=== PATIENT | male | born 1940 | race Caucasian/White ===

== ENCOUNTER 2016-10-25 18:32 | Inpatient (IN) ==
[2016-10-25] MEDS ORDERED: BENADRYL IV ONE ×2 (18:57→20:55)
[2016-10-25] MEDS ORDERED: DECADRON IV ONE (18:57)
[2016-10-25] MEDS ORDERED: SODIUM CHLORIDE 0.9% INJ ONE (20:55)
[2016-10-25] MEDS ORDERED: PEPCID IV ONE (20:55)
--- NOTE | 2016-10-25 20:57 | PROVIDER DOCUMENTATION ---
This chart was entered by Shalonda Gil Scribe, acting as scribe for Vamsi Coley PA. HPI-EENT General - General Chief Complaint: Tongue Swelling Stated Complaint: SWELLING TONGUE Time Seen by Provider: 10/25/16 18:57 Source: patient Allergies/Adverse Reactions: Patient Allergies Allergy/AdvReac Type Severity Reaction Status Date / Time No Known Allergies Allergy Verified 10/25/16 19:35 Home Medications: Home Medication List Medication Instructions Recorded Confirmed Last Taken Type Cilostazol [Pletal] 100 mg PO BID 03/23/16 10/25/16 Unknown History Donepezil [Aricept] 10 mg PO DAILY 03/23/16 10/25/16 Unknown History Famotidine [Pepcid] 40 mg PO BID #20 tablet 03/23/16 10/25/16 Unknown Rx LOVAstatin [Mevacor] 20 mg PO QHS 03/23/16 10/25/16 Unknown History Meloxicam [Mobic] 7.5 mg PO DAILY 03/23/16 10/25/16 Unknown History Metoprolol Tartrate 100 mg PO DAILY 03/23/16 10/25/16 Unknown History Clonidine [Catapres] 0.2 mg PO Q6HR PRN #30 tablet 05/10/16 10/25/16 Unknown Rx Guanfacine [Tenex] 2 mg PO BID #60 tablet 05/10/16 10/25/16 Unknown Rx Nifedipine E.r. [Procardia ER] 60 mg PO DAILY #30 tablet 05/10/16 10/25/16 Unknown Rx Aspirin 81 mg PO DAILY 10/25/16 10/25/16 Unknown History Fexofenadine [Priscila] 180 mg PO DAILY 10/25/16 10/25/16 Unknown History Furosemide [Lasix] 40 mg PO DAILY 10/25/16 10/25/16 Unknown History Lovastatin 20 mg PO DAILY 10/25/16 10/25/16 Unknown History Memantine Xr [Namenda Xr] 7 mg PO DAILY 10/25/16 10/25/16 Unknown History Tamsulosin HCl 0.4 mg PO DAILY 10/25/16 10/25/16 Unknown History - History of Present Illness-EENT General Nature of Presenting Problem: 76 year old M presents to the ED with a cc of acute tongue swelling with an onset of this afternoon. Family gave pt his epi pen. Unknown of what pt had a reaction to. PT states that tongue swelling is better after having epi pen. Family states that this happened about 3 weeks ago with HTN medications and was given new medication for HTN and a epi pen. EENT Location: reports: mouth Quality of Pain: reports: none Severity: reports: mild Onset/Duration: reports: this afternoon Timing: reports: still present Prearrival Treatment: Initiated prescription meds Associated Symptoms: reports: other (tongue swelling) Locality of Occurance: Home Similar Symptoms Previously?: Yes Recently seen or treated by another doctor?: Yes Review of Systems - Adult - REVIEW OF SYSTEMS - ADULT Constitutional: denies: chills, fever Eyes: reports: no symptoms reported Ears, Nose, Mouth & Throat: reports: mouth swelling. denies: ear pain, throat swelling Cardiovascular: denies: chest pain, palpitations Respiratory: reports: no symptoms reported Gastrointestinal: denies: nausea, vomiting Genitourinary: reports: no symptoms reported Musculoskeletal: denies: muscle aches, muscle weakness Integumentary: denies: skin sores/ulcer, skin thickening Neurological: denies: dizziness/vertigo, headache/migraines Psychiatric: reports: no symptoms reported Endocrine: reports: no symptoms reported Hematologic/Lymphatic: reports: no symptoms reported Allergic/Immunologic: reports: no symptoms reported All Other Systems: Reviewed and Negative Past History - Adult - PAST MEDICAL HISTORY-ADULT Review of Records: reports: Nursing Assessment Review, Medications Reviewed Major Childhood Illnesses: reports: denies history Cardiovascular: reports: cardiac disease, HTN Gastrointestinal: reports: cancer (colon) Neurological: reports: dementia - PRIOR SURGERIES/PROCEDURES Surgical/Procedure History: reports: bowel surgery - IMMUNIZATION STATUS Childhood Immunizations: See Nurse Assessment Flu Vaccine: See Nurse Assessment - SOCIAL HISTORY Smoking: cigarettes Provider spent 3-5 mins advising pt. on dangers of tobacco.: Discussed manners to quit use, and f/u contacts for add'l counseling. Substance Use: none/never Alcohol Use Frequency: never Living Situation: alone Physical Exam- EENT - Physical Exam EENT Initial Vital Signs Reviewed: Yes General Appearance: alert Throat Exam: tongue swollen Respiratory: chest non-tender, lungs clear, normal breath sounds Cardiovascular: normal peripheral pulses, regular rate, rhythm, no edema Abdominal Exam: non tender, soft Integumentary: normal color, normal turgor, warm/dry Psych/Mental Status: normal mood/affect, normal thought content, normal thought process, oriented x 3 Progress - PLAN OF CARE/RESULTS Progress/Plan/Lab Results: Vital Signs - 8 hr 10/25/16 18:50 Temperature 98.8 F Pulse Rate 96 H Respiratory Rate 18 Blood Pressure 170/115 O2 Sat by Pulse Oximetry 96 Orders Category Date Time Status Saline Loc NOW Care 10/25/16 18:57 Active Dexamethasone [Decadron] Med 10/25/16 18:57 Discontinued 10 mg IV NOW ONE Diphenhydramine [Benadryl] Med 10/25/16 18:57 Discontinued 25 mg IV NOW ONE Diphenhydramine [Benadryl] Med 10/25/16 20:55 Once 25 mg IV NOW ONE Famotidine [Pepcid] Med 10/25/16 20:55 Once 20 mg IV NOW ONE Sodium Chloride 0.9% Med 10/25/16 20:55 Once 5 - 10 ml INJ NOW ONE - REASSESSMENT Reassessment #1 Time Reassessed: 20:18 (tongue is still swollen after Benadryl and Decadron along with the floor of the mouth. Family states that pt still sounds the same. ) - CONSULTS/PCP/HOSPITALIST Notification #1 *Consult/PCP/Hospitalist*: Dr. Albarado(hospitalist) Time Discussed: 20:52 (give additional 25mg IV Benadryl and 20mg IV Pepcid. Will see pt in the ER and write all orders. ) Reason/Comments: consult for admission Consult Disposition: Admit Departure - Departure Date of Disposition Decision: 10/25/16 Time of Disposition Decision: 20:56 DIAGNOSIS: Tongue swelling Angioedema Qualifiers: Encounter type: initial encounter Qualified Code(s): T78.3XXA - Angioneurotic edema, initial encounter Disposition: ADMITTED INPATIENT Certified Medical Emergency: Emergent Condition: Stable Referrals and Follow-Ups: Mari Bernal MD [Primary Care Provider] - Discharge Education: Smoking, You Can Quit, [id number] - Critical Care Note This patient required my direct & personal management of CC.: No Attestation - Physician/ PARESH Attestation Patient care was provided by Advanced Practice Provider:: Yes Advanced Practice Provider:: Vamsi Coley Advanced Practice Provider documentation review:: The Mid-level provider documentation, treatment plan and medical decision making was reviewed by the physician who agrees with all treatment and medical decision making by the MLP. The physician spent face to face time with patient:: No Advanced Practice Provider documentation review:: Supervising physician onsite and consulted in the evaluation and care of this patient. The physician did not have a face to face encounter with the patient. This chart was documented by the indicated scribe, (Shalonda Gil Scribe) and accurately reflects the services I performed and decisions made by me, Vamsi Coley PA, as attested by the provider's signature.
--- NOTE | 2016-10-25 21:29 | Diag Imaging Result Doc PS360 ---
EXAM: CHEST-1 VIEW HISTORY: admission, angio edema TECHNIQUE: Erect AP portable chest dated 10/25/2016 at 2125 COMMENT: The inspiration is better than on 03/23/2016. Otherwise has been no significant change. IMPRESSION: No acute disease. Electronically signed by Mo Marin 10/25/2016 9:27 PM
[2016-10-25 21:35] LABS: MANUAL DIFF NEEDED? NO
[2016-10-25 21:40] LABS: BASO% 0.3 % (0.0-0.8); EOS# 0.09 X1000 (0.0-0.7); EOS% 1.4 % (0.0-10.0); HEMATOCRIT 43.6 % (42.0-52.0); HEMOGLOBIN 14.7 g/dL (14.0-18.0); LYMPH% 23.1 % (20.5-51.1); MCH 31.5 PG (27-31); MCHC 33.7 g/dL (33-37); MCV 93.6 FL (81-99); MONO# 0.67 X1000 (0.11-0.59); MONO% 10.3 % (1.7-9.3); MPV 10.1 FL (7.4-10.4); NEUT% 64.9 % (42.2-75.2); PLT 170 X1000 (130-400); RBC 4.66 XMIL (4.7-6.1)
[2016-10-25 22:01] LABS: ALBUMIN 4.1 g/dL (3.5-5.0); CALCIUM 8.9 mg/dL (8.8-10.2); POTASSIUM 4.6 mmol/L (3.5-5.1); TOTAL BILIRUBIN 0.57 mg/dL (0.20-1.00); TOTAL PROTEIN 8.3 g/dL (6.3-8.3)
[2016-10-25] MEDS ORDERED: GLUCAGON IM ONE (22:15)
[2016-10-25] MEDS ORDERED: STERILE WATER INJ. ONE (22:53)
--- NOTE | 2016-10-25 23:18 | HISTORY AND PHYSICAL ---
REASON FOR ADMISSION: 1-day history of sudden tongue swelling. HISTORY OF PRESENT ILLNESS: Mr. Cosme Mueller is a pleasant 76-year-old man with a history of BPH, CAD, hypertension, hyperlipidemia, mild cognitive impairment, peripheral vascular disease, who comes today complaining of a 3rd episode of swelling of the mouth and tongue. When he was last seen by Dr. Bernal, on 2 prior occasions, his lisinopril was replaced with losartan and the 2nd occasion losartan was discontinued and he says he was started on Procardia. He was also given an EpiPen pack to use if he had any recurrence of this while at home. Today, patient called his daughter who in turn called his grandson to go to the house because he was having slurred speech secondary to his tongue swelling. By the time his grandson got better, patient had administered 1 shot of epinephrine. He reports that he got some mild success using this with the dorsal surface of his tongue swelling receding. By the time he got here, there was some continuous improvement and he was given 10 mg of Decadron and 25 mg of Benadryl. During observation in the ER, they noticed the base of his tongue site swelling, and this has affected his speech and swallowing of his saliva. Fortunately the patient does not admit to any difficulty breathing at this point in time. No abdominal symptoms. No cardiorespiratory symptoms. No focal neurological complaints. No visual problems. History from this patient was somewhat limited due to his slurred speech from macroglossia. REVIEW OF SYSTEMS: 12 system review was negative. Positive findings noted as above. The patient denies any drooling, any fever, any chills, arthralgias or rash. The newest medication he has been on is the aforementioned Procardia. He denies any change. At the time this happened, no unusual meals were ingested. He does not take any herbal remedies. Over-the- counter medication. ALLERGIES: JIMENA inhibitors and questionable allergies to ARB's. HOME MEDICATION LIST: 1. Mobic 7.5 mg daily. 2. Namenda XR 7 mg daily. 3. Metoprolol tartrate 100 mg daily. 4. Nifedipine ER 60 mg daily. 5. Flomax 0.4 mg daily. 6. Lovastatin 20 mg at bedtime. 7. Tenex 2 mg b.i.d. 8. Lasix 20 mg daily. 9. Pepcid 40 mg b.i.d. 10. Aricept 10 mg daily. 11. Catapres 0.2 mg q.6 p.r.n. 12. Pletal 100 mg b.i.d. 13. Aspirin 81 mg daily. FAMILY HISTORY: Patient has family history of diabetes, Alzheimer's disease, hypertension, end- stage kidney disease, colon cancer and peripheral vascular disease and heart disease. This occurs in first-degree relatives. SOCIAL HISTORY: He does not smoke or drink. Lives with his son. No illicit drug use. SURGICAL HISTORY: He has had Lasik surgery. Partial colectomy for presumed colon cancer. Coronary artery stent placement. Skin cancer excisions. LABORATORY: His work is pending as of this time. EKG is also pending at this time. PHYSICAL EXAMINATION: VITAL SIGNS: Blood pressure 170/115, heart rate 96, respirations 18, temperature is 98.8 degrees, 96% on room air. GENERAL: He is an elderly man, not in acute respiratory distress. He is alert and oriented to person, place and time with normal mood and affect. HEENT: Head is normocephalic, atraumatic. Eyes, CURLY, EOMI. No periorbital edema. He is anicteric and not pale. ENT and oropharyngeal exam is very limited, but he has no central cyanosis visualized. He has some degree of moderate macroglossia, with severe edema of the floor of the mouth. #no perioral edema noted. NECK: Short and thick. No JVD or carotid bruit. No thyromegaly. No swelling. CHEST: Clear to auscultation with good air entry both lung gutierrez. CARDIOVASCULAR: First and second heart sounds heard. No gallops, murmurs, rubs , rhythm is regular. ABDOMEN: Protuberant, soft, nontender. No masses or megaly, bowel sounds normal. RECTAL: Deferred at this time. EXTREMITIES: He has 1+ pitting edema in his lower extremities. Pulses distally in all extremities are barely 1+ in the upper extremities and barely palpable distally in the lower extremities. No peripheral cyanosis. No clubbing. Extremities are warm to touch. No tremors. NEUROLOGICAL: No focal deficits. SKIN: Intact. No breakdown lesion or erythema. MUSCULOSKELETAL: Exam is grossly normal. ASSESSMENT: 1. Angioedema of the tongue and oral mucosa and oral cavity, yet to be identified. Medication ? Calcium channel blockers. Plan at this time, we will withhold all medications at this point in time. We will, however, continue the absolutely necessary medications either per rectum or intravenously. For now, for blood pressure control we will give p.r.n. hydralazine and scheduled modest doses of metoprolol because of patient's underlying coronary artery disease. Aspirin will be given per rectum. This may also afford us an frozen opportunity to see what medication may be inciting this round of angioedema by replacing each medication and observing the patient over a series of hours once the acute phase has resolved. First I recommend patient staying in-house for probably the next few days to observe this. There is somewhat of a conundrum in the sense that the patient has received epinephrine which showed of antagonizes his anti-ischemic medications and if he were to require this in a very severe situations, we will have no choice but to use it. This, however, will increase the patient's risk of having an ischemic event. I will order serial troponins to monitor this. The patient will be started on H2 and H1 blockers with steroids. If there is no significant improvement, we will reluctantly consider given the patient fresh frozen plasma even though there is a small risk of paradoxical worsening of angioedema with this. 2. Coronary artery disease. We will continue with intravenous metoprolol at a lower dose of 2.5 and if need be, we will increase the dose to 5 mg q.6 hours. Unfortunately, using beta blockers may blunt any benefit of epinephrine if the patient has anaphylaxis , in which case, we will have no choice but to use glucagon to override that. 3. Hyperlipidemia. Hold lovastatin. 4. Mild cognitive impairment. Withhold Aricept and Namenda indefinitely for prolonged until patient is out of the acute phase and these are the least important of all his medications and will need to be restarted last to see if they are the primary problem here. 5. Benign prostatic hypertrophy. The patient has a high risk of acute urinary retention since we started him on anticholinergics like Benadryl. This needs to be observed. 6. Hypertension. For now we will start patient on p.r.n. hydralazine, beta blockers and if needed, maybe intravenous Cardizem or verapamil for blood pressure control. Critical care time 45mins cc: Selam Albarado MD MTDD
[2016-10-26] MEDS ORDERED: SODIUM CHLORIDE 0.9% INJ ONE (01:55)
[2016-10-26] MEDS ORDERED: APRESOLINE IV PRN (01:55)
[2016-10-26] MEDS: PEPCID IV SCH ×2 (02:22→12:54)
[2016-10-26] MEDS: SOLU-MEDROL IV SCH ×4 (02:23→18:07)
[2016-10-26] MEDS: BENADRYL IV SCH ×4 (02:24→18:07)
[2016-10-26] MEDS: LOPRESSOR IV SCH ×2 (02:24→09:30)
[2016-10-26] MEDS: NS 1,000 ML IV SCH ×3 (02:26→16:54)
[2016-10-26] MEDS: HUMALOG SUBQ SCH ×5 (02:32→21:29)
[2016-10-26] MEDS: LOVENOX SUBQ SCH (02:47)
[2016-10-26 05:05] LABS: MANUAL DIFF NEEDED? NO
[2016-10-26 05:10] LABS: BASO% 0.1 % (0.0-0.8); HEMOGLOBIN 15.2 g/dL (14.0-18.0); IMM GRAN# 0.02 X1000 (0.0-0.04); IMM GRAN% 0.3 % (0.0-0.5); LYMPH# 0.93 X1000 (1.2-3.4); LYMPH% 13.6 % (20.5-51.1); MCH 31.6 PG (27-31); MCHC 34.5 g/dL (33-37); MCV 91.5 FL (81-99); MONO# 0.07 X1000 (0.11-0.59); MPV 9.8 FL (7.4-10.4); PLT 158 X1000 (130-400); RBC 4.81 XMIL (4.7-6.1)
--- NOTE | 2016-10-26 05:18 | EKG Report ---
Test Performed on : 10/25/2016 10:11:31 PM Test Reason : admission, angioedema Blood Pressure : / mmHG Vent. Rate : 070 BPM Atrial Rate : 070 BPM P-R Int : 220 ms QRS Dur : 102 ms QT Int : 434 ms P-R-T Axes : 043 -24 127 degrees QTc Int : 468 ms Sinus rhythm. with 1st degree AV block. with occasional premature ventricular complexes. T wave abnormality, consider lateral ischemia Prolonged QT Abnormal ECG When compared with ECG of 23-MAR-2016 10:41, premature ventricular complexes. are now present Questionable change in QRS axis T wave inversion no longer evident in Inferior leads Unconfirmed Result
[2016-10-26 06:09] LABS: CALCIUM 8.3 mg/dL (8.8-10.2); POTASSIUM 3.4 mmol/L (3.5-5.1)
[2016-10-26] MEDS ORDERED: CATAPRES-TTS-3 TD SCH (08:45)
[2016-10-26] MEDS ORDERED: ASPIRIN PR SCH (09:00)
--- NOTE | 2016-10-26 09:08 | PROGRESS NOTE ---
DATE: 10/26/2016 SUBJECTIVE: Mr. Mueller has a history of angioedema. He has previously taken lisinopril and losartan and both of those medications were discontinued. He has had previous C1 esterase levels and complement-1 inhibitor antigen levels drawn which were within normal limits. He was admitted to [facility] with increasing swelling of his tongue and perioral tissues. He was started on IV Pepcid, Benadryl, and IV Solu-Medrol. The swelling in the tongue has improved significantly. He is still having swelling of some of the buccal tissues. He denies any chest pain, palpitations, shortness of breath, or difficulty swallowing. He does have a longstanding history of hypertension. His blood pressure is fluctuating. Systolic blood pressures have been in the 160s and 170s whereas his diastolic blood pressures have ranged from 90-110. He denies any chest pain, palpitations, or anginal equivalents. OBJECTIVE: Temperature 97.7 degrees, pulse 92, BP 172/114. HEENT: There is no swelling of the tongue. There is still swelling of the buccal mucosa in the base of the oropharynx. Neck supple. CV: Regular rate and rhythm. Lungs clear. Abdomen soft, nontender, with active bowel sounds. ASSESSMENT AND PLAN: 1. Angioedema. Previous testing has demonstrated no evidence of C1 esterase deficiency. We will recheck a C1 esterase enzyme level. In the meantime, we will continue IV Solu-Medrol, IV Pepcid, and Benadryl. Once he goes home, he will be on medicines such as Singulair or fexofenadine. 2. Hypertension. His blood pressure is too high. We will continue intravenous metoprolol and add a Catapres patch. cc: Eugenio Bernal MD
[2016-10-26] MEDS ORDERED: TOPROL XL PO SCH (12:30)
[2016-10-26] MEDS: LASIX PO SCH (12:39)
[2016-10-26] MEDS: TENEX PO SCH ×2 (12:52→21:30)
[2016-10-26] MEDS ORDERED: NITROGLYCERIN 50 MG/D5W 50 MG/250 ML IV.SOLN IV SCH (14:57)
--- NOTE | 2016-10-26 16:21 | PROGRESS NOTE ---
DATE: 10/26/2016 SUBJECTIVE: Mr. Mueller was admitted to [facility] with angioedema. He has been taking IV Benadryl and methylprednisone. The swelling of the tongue has largely resolved. He is able to swallow clear liquids without difficulty. His blood pressure has been fluctuating, but is trending down. OBJECTIVE: Vital Signs: Blood pressure 178/106, pulse 62, respirations 18, temperature 97.7 degrees. CV: Regular rate and rhythm. Lungs: Clear. Abdomen: Soft, nontender, with active bowel sounds. ASSESSMENT AND PLAN: 1. Idiopathic angioedema. We will taper down on the intravenous Solu-Medrol to 40 mg intravenous every 8 hours and continue intravenous Benadryl. I will most likely add Singulair 10 mg daily on discharge as antihistamines can cause urinary retention in the face of known benign prostatic hypertrophy. 2. Hypertension. We will resume metoprolol 50 mg twice daily, Adalat extended release 60 mg daily, and Tenex 2 mg twice daily. We will monitor his blood pressure closely. cc: Eugenio Bernal MD
[2016-10-26] MEDS: PROCARDIA ER PO SCH (16:54)
[2016-10-26] MEDS ORDERED: GEODON IM ONE (18:32)
[2016-10-26] MEDS ORDERED: STERILE WATER INJ. INJ ONE (18:32)
[2016-10-26] MEDS ORDERED: ATIVAN PO ONE (19:30)
[2016-10-26] MEDS: TOPROL XL PO SCH (21:30)
[2016-10-26 22:09] LABS: URINE CULTURE NEEDED? NO; URINE MICRO REVIEW NEEDED? NO; URINE SOURCE CATH
[2016-10-26 22:12] LABS: BILIRUBIN URINE NEGATIVE (NEGATIVE); BLOOD URINE SMALL (NEGATIVE); COLOR YELLOW; GLUCOSE URINE NEGATIVE (NEGATIVE); LEUKOCYTES URINE NEGATIVE (NEGATIVE); NITRITE URINE NEGATIVE (NEGATIVE); PROTEIN URINE NEGATIVE (NEGATIVE); SP GRAVITY URINE 1.007; TURBIDITY URINE CLEAR (CLEAR); UROBILINOGEN URINE NORMAL (NORMAL)
[2016-10-26 22:14] LABS: UR EPITHELIAL CELLS <10 /HPF (<10); URINE BACTERIA NEGATIVE /HPF; URINE WBC <10 /HPF (<10)
[2016-10-26] MEDS ORDERED: HALDOL IM PRN (22:53)
[2016-10-27] MEDS: BENADRYL IV SCH ×2 (00:22→06:08)
[2016-10-27] MEDS: PEPCID IV SCH ×2 (01:00→13:14)
[2016-10-27] MEDS: LOVENOX SUBQ SCH (01:01)
[2016-10-27] MEDS: NS 1,000 ML IV SCH ×4 (01:01→21:59)
[2016-10-27] MEDS: SOLU-MEDROL IV SCH ×2 (02:05→13:15)
[2016-10-27] MEDS: HUMALOG SUBQ SCH ×4 (04:10→20:56)
[2016-10-27] MEDS ORDERED: ATIVAN IV ONE (06:51)
[2016-10-27] MEDS ORDERED: PREDNISONE PO SCH (09:00)
[2016-10-27] MEDS: LASIX PO SCH (09:51)
[2016-10-27] MEDS: ARICEPT PO SCH (09:51)
[2016-10-27] MEDS: FLOMAX PO SCH (09:51)
[2016-10-27] MEDS: NAMENDA XR PO SCH (09:51)
[2016-10-27] MEDS: TENEX PO SCH ×2 (09:52→20:22)
[2016-10-27] MEDS: PROCARDIA ER PO SCH (09:52)
[2016-10-27] MEDS: PLETAL PO SCH ×2 (09:52→20:22)
[2016-10-27] MEDS: TOPROL XL PO SCH ×2 (09:52→20:22)
[2016-10-27] MEDS ORDERED: LOPRESSOR IV SCH (12:30)
[2016-10-27 13:05] LABS: CALCIUM 8.5 mg/dL (8.8-10.2); POTASSIUM 3.5 mmol/L (3.5-5.1)
[2016-10-27 13:07] LABS: HEMATOCRIT 44.9 % (42.0-52.0); HEMOGLOBIN 15.1 g/dL (14.0-18.0); MCH 31.6 PG (27-31); MCHC 33.6 g/dL (33-37); MCV 93.9 FL (81-99); MPV 9.7 FL (7.4-10.4); RBC 4.78 XMIL (4.7-6.1)
[2016-10-27 13:16] LABS: URINE MICRO REVIEW NEEDED? NO; URINE SOURCE CATH
[2016-10-27] MEDS ORDERED: LEVAQUIN 250 MG/D5W 250 MG/50 ML IVPB IV SCH (13:45)
[2016-10-27 13:57] LABS: UR EPITHELIAL CELLS <10 /HPF (<10); URINE BACTERIA NEGATIVE /HPF; URINE RBC TNTC /HPF (<10)
--- NOTE | 2016-10-27 14:00 | Diag Imaging Result Doc PS360 ---
EXAM: CHEST-PORTABLE HISTORY: HTN TECHNIQUE: Upright AP COMPARISON: 10/25/2016 FINDINGS: The lungs are well expanded. Heart is borderline mildly prominent. Mild prominence to the aortic arch similar to the prior study. The vessels are not distended. No pneumonia. No pleural effusions identified. IMPRESSION: Stable chest Electronically signed by Raimundo Beard 10/27/2016 1:58 PM
[2016-10-27 14:01] LABS: BILIRUBIN URINE NEGATIVE (NEGATIVE); BLOOD URINE LARGE (NEGATIVE); COLOR BROWN; GLUCOSE URINE NEGATIVE (NEGATIVE); LEUKOCYTES URINE MODERATE (NEGATIVE); NITRITE URINE NEGATIVE (NEGATIVE); PH URINE 6.5; PROTEIN URINE 30 mg/dL (NEGATIVE); SP GRAVITY URINE 1.015; TURBIDITY URINE HAZY (CLEAR); URINE CULTURE NEEDED? YES; UROBILINOGEN URINE NORMAL (NORMAL)
--- NOTE | 2016-10-27 14:55 | PROGRESS NOTE ---
DATE: 10/27/2016 SUBJECTIVE: Mr. Cosme Mueller was admitted to [facility] with acute angioedema. He has been on IV Benadryl, IV methylprednisolone, and the swelling in his tongue had improved significantly. We reduced the dosage of methylprednisolone yesterday afternoon. He does have a history of mild cognitive impairment for which he is taking both Aricept and Namenda. He was highly agitated and restless throughout the night. At times, he was confused and disoriented. He pulled out multiple IVs and attempted to get out of bed multiple times. He was given multiple medications including Geodon and Ativan and was sleeping deeply when I saw him this morning. In fact, he did not arouse to verbal stimuli. He did squirm and move about in bed to painful stimuli. He has not had any fever, chills, nausea, or vomiting. He has not been able to take oral medications as he has been sedated and difficult to arouse. He does have a longstanding history of hypertension. His blood pressure continues to fluctuate. Systolic blood pressures are ranging from 145-171, whereas his diastolic blood pressures are ranging from 90-103. OBJECTIVE: Vital Signs: Temperature 98.4 degrees, pulse 62, respirations 16, BP 145/90. General: This is a chronically ill-appearing, 76-year-old gentleman who squirms about in bed and opens his eyes to verbal and painful stimuli. He moves all extremities grossly. CV: Regular rate and rhythm. Lungs clear. Abdomen soft, nontender, with active bowel sounds. Extremities without edema. LABORATORY DATA: A CBC demonstrated a white count of 12.69, hemoglobin 15.1, hematocrit 44.9, and a platelet count of a 177,000. Electrolytes demonstrate the following: Sodium 139, potassium 3.5. BUN 29, creatinine 1.7, and glucose 128. ASSESSMENT AND PLAN: 1. Angioedema. The tongue swelling has resolved. The peribuccal mucosa is much less erythematous. He was tolerating clear liquids without difficulty prior to the events of last night. We will seen him down to methylprednisolone 20 mg IV daily. I will stop the IV Benadryl. He had been taking fexofenadine as an outpatient for the angioedema but stopped it a week ago. This is his first episode in several months. Previous Complement C1 Estrace Deficiencies were not present. We will most likely try Singulair 10 mg on discharge, as Singulair will not cause urinary retention in the setting of BPH. 2. Mild cognitive impairment with delirium. He has a mild leukocytosis. His urinalysis is clear. His creatinine has dropped from 2.1 to 1.7. I suspect that the delirium is multifactorial in etiology. He has renal insufficiency and uremia. We will continue fluid resuscitation and recheck a BMP in the morning. I will check a portable chest x-ray today as well as a CT scan of the brain. I will go ahead and begin Levaquin 250 mg IV daily pending urine cultures and blood cultures x2. 3. Essential hypertension. We will continue Catapres TTS 3 patch; 1 patch to the chest weekly and add Lopressor 5 mg IV q.12 hours. cc: Eugenio Bernal MD
[2016-10-27] MEDS: GEODON IM PRN (16:07)
[2016-10-27] MEDS: STERILE WATER INJ. INJ PRN (16:08)
--- NOTE | 2016-10-27 17:02 | PROGRESS NOTE ---
DATE: 10/27/2016 SUBJECTIVE: Mr. Mueller seems much more calm this afternoon. He was awake and easily arousable. He answered questions appropriately. He was oriented to name and place. Blood pressure is still fluctuating. He denies any chest pain, palpitations, or anginal equivalents. His chest x-ray was unremarkable. OBJECTIVE: Vital signs: Blood pressure 179/115, pulse 87, respirations 22, temperature 98.8 degrees. Cardiovascular: Regular rate and rhythm. Lungs: Clear. Abdomen: Soft, nontender, with active bowel sounds. ASSESSMENT: Hypertension. His blood pressure is too high. I will continue a Catapres TTS-3 patch, 1 patch to the chest q.7 days and increase the dosage of Lopressor to 5 mg IV q.6 hours. cc: Eugenio Bernal MD
[2016-10-27] MEDS: ATIVAN IV PRN ×2 (18:43→21:59)
[2016-10-27] MEDS: LOPRESSOR IV SCH (19:27)
[2016-10-28] MEDS: LOVENOX SUBQ SCH (02:11)
[2016-10-28] MEDS: PEPCID IV SCH (02:11)
[2016-10-28] MEDS: NS 1,000 ML IV SCH ×3 (02:12→16:53)
[2016-10-28] MEDS: LOPRESSOR IV SCH ×5 (02:15→21:20)
[2016-10-28] MEDS: HUMALOG SUBQ SCH ×4 (04:40→21:17)
[2016-10-28] MEDS: ATIVAN IV PRN (05:09)
[2016-10-28] MEDS: TENEX PO SCH ×3 (08:54→21:20)
[2016-10-28] MEDS: TOPROL XL PO SCH ×3 (08:55→21:21)
[2016-10-28] MEDS: ROCEPHIN 1 GM in NS 50 ML IV SCH (09:30)
--- NOTE | 2016-10-28 09:50 | PROGRESS NOTE ---
DATE: 10/28/2016 SUBJECTIVE: Mr. Mueller was admitted to [facility] with acute angioedema. Previous complement studies were within normal limits. Repeat complement studies were also within normal limits. We had stopped various medications including lisinopril and losartan when he initially presented with angioedema. He has been taking fexofenadine at home, but stopped it a week ago because of nosebleeds. He was initially treated with IV Benadryl and IV Solu-Medrol. The swelling of the tongue has resolved. He does have a history of mild vascular dementia. Over the past 2 nights he has been incredibly restless and agitated and having visual hallucinations. His urinalysis was positive yesterday. Urine cultures are negative. Blood cultures are still pending. We started him on Levaquin yesterday. His creatinine is trending down with fluid resuscitation. We tried Geodon and Ativan with little improvement clinically. He was very restless and agitated and tried to get out of bed throughout the night. He would not attempt to take oral medications. This morning, he was sitting up in his hospital bed. He seemed calm, but was still restrained with soft restraints. He knew his name, place and year. He could tell me the name of his daughter. He was able to eat several bites of Jell-O with assistance and took his morning blood pressure medicines with assistance this morning. His blood pressure is still quite labile. He denies any chest pain, palpitations or anginal equivalents. OBJECTIVE: Vital Signs: Temperature 98.5 degrees, pulse 74, respirations 20, BP 166/95. CV: Regular rate and rhythm with a soft systolic murmur. Lungs: Clear. Abdomen: Soft, nontender, with active bowel sounds. Neuro: He is arousable, but still somewhat sedated. He is oriented to name, place and year. He followed simple commands. Tongue was deviated to the right. He has normal tone and strength in the upper and lower extremities. ASSESSMENT AND PLAN: 1. Acute delirium. The etiology of his delirium is unclear. He does not consume any alcoholic beverages. He has not stopped taking any anxiolytic agents suddenly. He has no previous history of seizures. We will check a CT scan of the brain. We will continue IV antibiotics pending final cultures. I will repeat electrolytes this morning. We will we will consult neurology. 2. Angioedema. The angioedema has resolved. We will advance him to a gastrointestinal soft diet. I will begin Singulair 10 mg daily as it will not cause urinary retention in the face of benign prostatic hyperplasia. 3. Hypertension. He was able to take his Tenex and metoprolol by mouth this morning. We are going to resume the Adalat and continue the Catapres patch. Unfortunately, there are multiple medicines that he cannot take, including JIMENA inhibitors, ARB's, as well as Tekturna because of the angioedema. We are also holding his eTecic. cc: Eugenio Bernal MD
--- NOTE | 2016-10-28 09:53 | Diag Imaging Result Doc PS360 ---
EXAM: CHEST-PORTABLE HISTORY: HTN TECHNIQUE: Sitting AP portable COMPARISON: 10/27/2016 FINDINGS: The patient is rotated to the right. The lungs are well expanded. Heart is mildly prominent. The vessels are not distended. No pneumonia. No pleural effusions identified. IMPRESSION: Stable chest. Electronically signed by Raimundo Beard 10/28/2016 9:51 AM
[2016-10-28 11:26] LABS: MANUAL DIFF NEEDED? NO
[2016-10-28 11:30] LABS: BASO% 0.1 % (0.0-0.8); IMM GRAN# 0.02 X1000 (0.0-0.04); IMM GRAN% 0.2 % (0.0-0.5); LYMPH# 1.19 X1000 (1.2-3.4); LYMPH% 11.7 % (20.5-51.1); MCH 31.1 PG (27-31); MCHC 33.3 g/dL (33-37); MCV 93.2 FL (81-99); MONO# 1.31 X1000 (0.11-0.59); MONO% 12.9 % (1.7-9.3); MPV 9.5 FL (7.4-10.4); NEUT% 75.1 % (42.2-75.2); PLT 175 X1000 (130-400); RBC 5.15 XMIL (4.7-6.1)
[2016-10-28 11:50] LABS: CALCIUM 8.3 mg/dL (8.8-10.2); POTASSIUM 3.4 mmol/L (3.5-5.1); TOTAL BILIRUBIN 0.74 mg/dL (0.20-1.00); TOTAL PROTEIN 7.3 g/dL (6.3-8.3)
[2016-10-28] MEDS: ARICEPT PO SCH (12:25)
[2016-10-28] MEDS: FLOMAX PO SCH (12:27)
[2016-10-28] MEDS: LASIX PO SCH (12:27)
[2016-10-28] MEDS: PROCARDIA ER PO SCH (12:28)
[2016-10-28] MEDS: NAMENDA XR PO SCH (12:28)
[2016-10-28] MEDS: SOLU-MEDROL IV SCH (12:28)
[2016-10-28] MEDS: PLETAL PO SCH ×3 (12:28→21:21)
--- NOTE | 2016-10-28 12:43 | Diag Imaging Result Doc PS360 ---
EXAM: CT HEAD W/O CONTRAST HISTORY: delerium TECHNIQUE: CT of the head without contrast with dose reduction (clarity.) COMMENT: There is calcification in the left vertebral and both internal carotid arteries. There is generalized cerebral atrophy. There is also an extra-axial fluid collection which appears to be of CSF density on the left side. This averages under a centimeter in thickness. Compared to the previous study of 03/23/2016 this does not appear to have changed significantly. There are some patchy areas of lucency in the white matter of both hemispheres particularly in the right frontal and parietal lobes consistent with chronic microvascular ischemic change. The ventricular system has not changed significantly in appearance or size. The calvarium is intact. The visualized paranasal sinuses are unchanged. IMPRESSION: Stable CT of the head. Electronically signed by Mo Marin 10/28/2016 12:41 PM
[2016-10-28] MEDS: LIBRIUM PO SCH ×3 (14:40→21:18)
[2016-10-28] MEDS: HALDOL IV PRN (14:42)
--- NOTE | 2016-10-28 16:29 | CONSULTATION ---
DATE OF CONSULTATION: 10/28/2016 NEUROLOGY CONSULT NOTE: Mr. Mueller is 76 years old and he has had some agitated confusion in the hospital. He was admitted a few days ago with angioedema of the tongue. Tongue has been much improved. He was restless overnight and required restraints. There was never a period of unresponsiveness or unconsciousness. There was no seizure or seizure-like behavior. He is a little bit more calm this morning. History from attentive daughter at the bedside is that he has had some forgetfulness for approximately a year or a little bit longer, gradually becoming more prominent. He was started on donepezil 8-12 months ago and has tolerated that with possible benefit noted. Namenda XR 7 mg daily was added a few months ago, according to the daughter, and she is not certain that has provided additional benefit. He has had a few episodes of angioedema of the tongue in these last few months. He started Priscila after the first incident. There are no other recent medications. Daughter reports no history of diagnosed stroke, previous seizure, serious head injury, other neurologic event. He has a remote history of ethanol use, possibly abuse but daughter believes that has not happened for many years. He has not used illicit drugs and specifically has not had anxiolytics or benzodiazepines. Workup here includes lab showing some mildly elevated blood sugars, nothing else remarkable on chemistry profile, nothing that generally would be associated with encephalopathy. He has a CT of the head ordered. On exam, he is awake, alert, attentive. He answered questions appropriately but often incorrectly. He was unable to provide the correct day of the week, month, name of the hospital, name of the President. I did not test his cognitive function further. He had some typical visual hallucinatory behavior, turning his head rapidly from one side of the bed to the other and looking up at the ceiling as if he were watching something. (Daughter reports that he has reported seeing things around the room which are not there.) Head and neck are unremarkable. There is no meningismus. Extraocular movements are full laterally. Upgaze is difficult to foundry molder with voluntary active gaze, but appears to be good with head tilting passively. Facial motility is symmetric. Gag is intact. Tongue is unremarkable on my brief exam. Oropharynx is otherwise unremarkable. He can hear. Strength is normal in the arms and legs. Tone is symmetric. He did well on [id number] testing bilaterally. He has some tremulousness, but no classifiable tremor. Plantar response is silent bilaterally. Reflexes are 1+ at the wrists, and absent at the ankles bilaterally. I did not test his gait. IMPRESSION: 1. Recent agitated confusion, features consistent with delirium and he is also tremulous. Features are consistent with a withdrawal syndrome, but there is nothing in his current or recent medication history to suggest a withdrawal problem. However, when I asked him about ethanol ingestion he seemed to consistently report that he had recently had "apple alcohol" that he had "bought in the store." Daughter reports that may be possible. If this is not a withdrawal syndrome, then I would simply label this global encephalopathy with agitated confusion and delirium, uncertain explanation. I would continue treating symptomatically as you are doing and hope that he will gradually recover. The most likely explanation would be acute/subacute exacerbation of confusion and agitation in the face of hospitalization with baseline cognitive impairment syndrome. I do not see evidence of increased intracranial pressure or focal lesion but CT will be reassuring. 2. He has baseline cognitive impairment, probably major cognitive impairment/ dementia. I cannot state that with certainty based on his current syndrome and he may have only a mild cognitive impairment at baseline. 3. The only recent medicine that seems to have been consistently on board with each of his angioedema episodes is Namenda. Therefore, I would consider not resuming Namenda for at least a few months. I think he can resume donepezil whenever he is swallowing consistently. Thanks for asking me to see Mr. Mueller. cc: MD Eugenio Morillo III, MD MTDD
[2016-10-29] MEDS: ATIVAN IV PRN ×2 (01:54→22:53)
[2016-10-29] MEDS: NS 1,000 ML IV SCH ×2 (01:58→14:06)
[2016-10-29] MEDS: LOPRESSOR IV SCH ×4 (01:59→19:43)
[2016-10-29] MEDS: LIBRIUM PO SCH ×4 (02:01→20:23)
[2016-10-29] MEDS: LOVENOX SUBQ SCH (02:01)
[2016-10-29] MEDS: HUMALOG SUBQ SCH ×4 (04:38→23:40)
[2016-10-29] MEDS: ROCEPHIN 1 GM in NS 50 ML IV SCH (09:25)
[2016-10-29] MEDS: FLOMAX PO SCH (09:51)
[2016-10-29] MEDS: LASIX PO SCH (09:51)
[2016-10-29] MEDS: ARICEPT PO SCH (09:51)
[2016-10-29] MEDS: NAMENDA XR PO SCH (09:52)
[2016-10-29] MEDS: PLETAL PO SCH ×2 (09:56→20:24)
[2016-10-29] MEDS: TOPROL XL PO SCH ×2 (09:56→20:24)
[2016-10-29] MEDS: TENEX PO SCH ×2 (09:56→20:24)
[2016-10-29] MEDS: PROCARDIA ER PO SCH (09:56)
[2016-10-29 10:11] LABS: ALBUMIN 3.6 g/dL (3.5-5.0); POTASSIUM 3.3 mmol/L (3.5-5.1); TOTAL BILIRUBIN 0.72 mg/dL (0.20-1.00); TOTAL PROTEIN 6.6 g/dL (6.3-8.3)
[2016-10-29] MEDS ORDERED: MAGNESIUM SULFATE 2 GM/S.W.I. 2 GM/50 ML IVPB IV ONE (10:20)
[2016-10-29] MEDS ORDERED: POTASSIUM CHLORIDE 40 MEQ/SWI 40 MEQ/100 ML IVPB IV ONE (10:20)
[2016-10-29] MEDS: KLOR-CON PO SCH (10:55)
[2016-10-29] MEDS: MAG-OX PO SCH ×2 (10:55→20:24)
[2016-10-29] MEDS: SOLU-MEDROL IV SCH (11:50)
[2016-10-29] MEDS: POTASSIUM CHLORIDE 20 MEQ/SWI 20 MEQ/100 ML IVPB IV SCH ×2 (11:51→14:06)
--- NOTE | 2016-10-29 12:02 | PROGRESS NOTE ---
DATE: 10/29/2016 SUBJECTIVE: Of interest, I note that he goes down to a junctional bradycardia with a widened complex at night. He also had noted some sleep apnea and his O2 sats go down in the 60s. He presently is in sinus rhythm. His baseline EKG that we did on 10/25/2016, he appears to have sinus rhythm. Narrow complex. But, he does have first-degree AV block. His agitation is less. He is in restraints. He is oriented to person only though. He did not remember the year or the month or where he was. However, he seems to be very pleasant. I reminded him he is in [facility] and of his date and time. I see where Dr. Noel is seeing him and suspected just global encephalopathy with probable underlying early cognitive decline or dementia. OBJECTIVE: Exam today, temperature 97.7 degrees, pulse 78, respirations 20, blood pressure 168/106. Pupils are equal, round. CVP less than 6 cm. Lungs are clear in all lung gutierrez. Cardiovascular: Regular rhythm and rate without murmur or S3. Abdomen is soft. Skin is warm and dry. Urine output almost 4 L. LAB REVIEW: Lab reviewed from yesterday, white count 10,140. Hematocrit 48, platelet count 175,000. Chemistry: Sodium 146, potassium 3.3, chloride 107, blood sugar sequential 112, 112, 80 and 87. Calcium was 8.0. Albumin 3.6. ASSESSMENT AND PLAN: 1. Acute delirium. Suspect nonspecific global encephalopathy, hospital psychosis in the face of probably some underlying cognitive decline. He has no previous history of seizures. He was getting some Benadryl and Solu-Medrol. I am not sure about if there was any ethanol or ethanol withdrawal. At any rate, he seems to be improving. 2. Angioedema which is why he was admitted. This seems to be resolving. He is on Singulair. 3. Hypertension. Blood pressure a little elevated but during the night he has bradycardia. This is significant and I am concerned about potential for AV block. 4. Bradycardia with wide complex. Will ask Cardiology to see. 5. Reported apnea at night consistent with obstructive sleep apnea. I am going to give him some potassium today. We will check his magnesium and potassium in the morning. We will check a T4 and TSH and B12 and folate. cardiology did see today. REVIEW OF ORDERS: He is getting Librium 25 mg p.o. q.6 hours, getting Plendil 100 mg b.i.d., clonidine patch, Aricept 10 mg a day. He is on Lovenox 40 mg subcutaneously q. 24 hours, Lasix 40 mg a day. Tenex 2 mg b.i.d. and Memantine XR 28 mg a day. Methylprednisone 20 mg q. 24 hours. I think I will cut that down to 10 mg IV and then maybe we can get him off of it. He is getting metoprolol 50 mg p.o. b.i.d. I think we need to reduce that given his bradycardia. We will continue the nifedipine 60 mg daily. Current fluid is going to 75 mL an hour. He is on ceftriaxone 1 g to 24 hours. That was started on 10/28/2016. Flomax 0.4 mg a day. cc: MD Eugenio Pugh MD
--- NOTE | 2016-10-29 13:15 | CONSULTATION ---
DATE OF CONSULTATION: 10/29/2016 INDICATION: Wide complex arrhythmia. HISTORY OF PRESENT ILLNESS: Mr. Mueller is a 76-year-old white male with some degree of dementia. Family provides much of the history as the patient is not very conversant today and has apparently been somewhat combative during the hospitalization. He is currently on soft restraints to his upper extremities. He apparently presented on 10/25/2016 with complaints of swelling in his mouth and tongue. He apparently had this reaction with lisinopril and possibly losartan. He apparently had been in his usual state of health. He has not had any complaints of palpitations. No chest pain. No shortness of breath. He has not had any syncope. On review of his rhythm strips, he appears to be in an idioventricular rhythm during the hours of sleep. His ventricular rate appears to be in the 50-60 range. Again, he has no other complaints. No chest pain. PAST MEDICAL HISTORY: 1. His past medical history is significant for coronary disease of unclear etiology of that diagnosis. I do not have any records, and the family is not aware of any manager configuration that he sees. 2. Hypertension. 3. Hyperlipidemia. 4. Peripheral vascular disease. Again, unclear of the etiology of this as I have no records. 5. Previous episodes of angioedema with lisinopril as well as losartan. 6. Dementia. SOCIAL HISTORY: He apparently lives with a son and does not use alcohol or tobacco. FAMILY HISTORY: Significant for diabetes, Alzheimer's disease, hypertension, end-stage kidney disease, colon cancer, peripheral vascular disease, and heart disease. REVIEW OF SYSTEMS: A 10-system review of systems is not able to be performed as the patient is somewhat confused presently. PHYSICAL EXAMINATION: Vital Signs: He is afebrile. His heart rate is 78. Blood pressure 168/106. General: He is in no acute distress. Mildly confused. Much of his speech is unintelligible. HEENT: Eye examination shows pink conjunctivae. White sclerae. Neck: Examination shows no obvious thyromegaly or thyroid tenderness. Cardiovascular: He sounds to be in a regular rate and rhythm. Current telemetry shows sinus rhythm, rates in the 80s to 90s. He has no lower extremity edema. Chest: Clear bilaterally. He has no increased work of breathing. Abdomen: Soft, nontender, nondistended. He has no obvious organomegaly. Skin: Warm and dry throughout without any rashes. Neurologic: He seems to be able to move all extremities well. He is somewhat confused. He is not able to participate in much of the exam. PERTINENT DATA: His chest x-ray shows no evidence of any acute disease. He had a head CT performed demonstrating no evidence of any acute abnormalities. He had an EKG performed on presentation which shows sinus rhythm. PAC identified first-degree AV block. His subsequent EKG here on 10/29/2016 at 10:16 shows sinus rhythm, evidence for PVC. No signs of acute ischemic changes or significant arrhythmia. Telemetry as identified up in the HPI. LABORATORY DATA: His laboratory data shows a sodium of 146, potassium 3.3, BUN 33, creatinine is 1.4. His magnesium level apparently was checked. His white count is 10.1, hematocrit 48, platelet count is 175,000. ASSESSMENT: 1. Idioventricular rhythm. 2. Dementia with some level of delirium. 3. Electrolyte abnormalities. PLAN: His potassium is being repleted. He has also been administer some magnesium by the primary team. We will make sure he has electrolytes ordered in the morning. We will check an echo. Presently, I do not have any further recommendations. We will trend his arrhythmias over the next 24 hours or so. cc: MD Eugenio Echeverria MD
--- NOTE | 2016-10-29 19:13 | ECHO REPORT ---
ORDER DATE: 10/29/2016 INDICATION: Wide complex arrhythmia. FINDINGS: This is an extremely difficult study with very limited windows, poor endocardial border resolution. FINDINGS: 1. Mild tricuspid regurgitation. RV systolic pressure of 13. 2. Normal appearing RV systolic function on very poor views of the right ventricle. 3. No evidence of mitral valve prolapse. Suggestion of trace mitral regurgitation. 4. Normal LV size with a suggestion of mild left ventricular hypertrophy. Posterior and interventricular septal wall thicknesses are 1.2 cm each. The estimated EF is greater 55% but this is on very poor quality views. No segmental wall motion analysis abnormalities were seen. 5. Aortic valve appears to open well. There is mild aortic insufficiency. No evidence of stenosis. 6. Aorta appears normal in visualized segments. 7. No pericardial effusion was identified. cc: MD Eugenio Echeverria MD
[2016-10-29] MEDS: GEODON IM PRN (23:41)
[2016-10-30] MEDS: LOVENOX SUBQ SCH (02:27)
[2016-10-30] MEDS: LOPRESSOR IV SCH ×4 (02:27→20:28)
[2016-10-30] MEDS: LIBRIUM PO SCH ×4 (02:28→20:29)
[2016-10-30] MEDS ORDERED: CARDIZEM 100 MG/NS 100 MG/100 ML IVPB IV SCH (02:44)
[2016-10-30] MEDS: HUMALOG SUBQ SCH ×4 (04:18→21:28)
[2016-10-30] MEDS: ATIVAN IV PRN ×2 (04:45→21:51)
--- NOTE | 2016-10-30 07:16 | PROGRESS NOTE ---
DATE: 10/30/2016 SUBJECTIVE: Mr. Mueller is resting comfortably. I think he had a fairly uneventful night. OBJECTIVE: His temperature is 98.1 degrees, pulse 132, respirations 18, blood pressure 174/123. CVP less than 6 cm. Lungs are clear in all lung gutierrez. Cardiovascular: He has got an irregular rhythm and irregular rate and appears to be in atrial fibrillation. His urine output was 2700 mL. White count 10,140 from yesterday. Hematocrit 48, platelet count 175,000. Chemistry: Sodium 128, 123, 113. ASSESSMENT AND PLAN: 1. Idioventricular rhythm. His potassium has been repleted. I will continue give some magnesium and potassium. He is in atrial fibrillation with a rate in the 120s. I have adjusted down his beta glenny. May need to readjust that. 2. Dementia with level of delirium. Appears to be improving. 3. Presented with angioedema. This has resolved. Taking him off steroids. 4. Reported some apnea during sleep and so probably needs outpatient sleep apnea study. E 5. Echocardiogram was done yesterday, read by Dr. Antoine. Mild tricuspid regurgitation. RV pressure 13. LV size: Mild left ventricular hypertrophy. Ejection fraction greater than 55%, but these are poor quality views. Aortic valve appears to open well. We will try and increase his activity. Hopefully, we will get him out of bed and up in a chair. Encouraged p.o. intake. He is on soft diet, and we will see how we do. cc: MD Eugenio Pugh MD
[2016-10-30] MEDS: NS 1,000 ML IV SCH ×2 (07:27→17:49)
[2016-10-30] MEDS: LASIX PO SCH (09:14)
[2016-10-30] MEDS: ROCEPHIN 1 GM in NS 50 ML IV SCH (09:14)
[2016-10-30] MEDS: KLOR-CON PO SCH (09:14)
[2016-10-30] MEDS: NAMENDA XR PO SCH (09:14)
[2016-10-30] MEDS: PROCARDIA ER PO SCH (09:14)
[2016-10-30] MEDS: MAG-OX PO SCH ×2 (09:15→20:28)
[2016-10-30] MEDS: PLETAL PO SCH ×2 (09:15→20:29)
[2016-10-30] MEDS: FLOMAX PO SCH (09:15)
[2016-10-30] MEDS: TOPROL XL PO SCH ×2 (09:15→20:29)
[2016-10-30] MEDS: ARICEPT PO SCH (09:16)
[2016-10-30] MEDS: TENEX PO SCH ×2 (09:16→20:29)
[2016-10-30 10:01] LABS: MAGNESIUM 2.6 mg/dL (1.5-2.7); POTASSIUM 4.6 mmol/L (3.5-5.1)
[2016-10-30] MEDS: SOLU-MEDROL IV SCH (11:45)
--- NOTE | 2016-10-30 11:57 | PROGRESS NOTE ---
DATE: 10/30/2016 SUBJECTIVE: Mr. Mueller apparently had a rough night last night. He was apparently quite agitated again. Continued to have issues with his delirium. In addition, he converted into atrial fibrillation and was placed on a Cardizem infusion. OBJECTIVE: Vital signs: He is afebrile. Heart rates currently seem to be in the 90s on his telemetry. His systolic blood pressures have been quite elevated, in the 170s to 90s. Generally: He is in no acute distress. He is sleeping peacefully. He rouses to physical stimuli but again, he is in soft restraints. Cardiovascular: He is in a regular rate and rhythm again. Telemetry currently shows sinus. He has no lower extremity edema. Chest: Clear bilaterally. He has no increased work of breathing. Abdomen: Soft, nontender. PERTINENT DATA: Sodium is 139, potassium 4.6, BUN 33, creatinine 1.4, magnesium level is 2.6. ASSESSMENT: 1. Acute delirium. 2. New onset atrial fibrillation. PLAN: Patient already had an echocardiogram performed yesterday. This was a somewhat difficult study. The EF appeared to be greater than 55% on that study. For now, we will continue on Toprol 25 b.i.d. We will watch his rhythm for now. Continue to watch his electrolytes. cc: MD Eugenio Echeverria MD
--- NOTE | 2016-10-30 17:09 | PROGRESS NOTE ---
DATE: 10/30/2016 SUBJECTIVE: Mr. Mueller is still require 4-point restraints. He is pleasant but he is confused, he is oriented to person, has to be reminded he is in the unit, what month it is, what year it is, a family member was at the bedside said that he is pretty nice with staff but he is pretty rough the family so still significant confusion, delirium. OBJECTIVE: Vital signs: Temperature 98.5 degrees, pulse 90, respirations 17, blood pressure 169/110. HEENT: Pupils were equal. CVP less than 6 cm. Lungs: Are clear anterolateral. Cardiovascular: Regular rhythm, rate without murmur or S3. Abdomen: Soft. Skin: Is warm and dry. ASSESSMENT: I discussed with family, told them I think he is having hospital psychosis is probably multifactorial. Electrolytes look good and I think overall physically he is doing much better. He has had some atrial fibrillation, the rate appears be controlled, he has an idiopathic bradycardia which cardiology has evaluated, I do not see any change that we need to make on his medications and I think that as he is able to get up and have nutrition and get out of the intensive care that his mental status should improve, cognitive status improve. cc: MD Eugenio Pugh MD
[2016-10-31] MEDS: LOPRESSOR IV SCH ×4 (02:35→20:42)
[2016-10-31] MEDS: LIBRIUM PO SCH ×4 (02:36→20:42)
[2016-10-31] MEDS: LOVENOX SUBQ SCH (03:07)
[2016-10-31] MEDS: HUMALOG SUBQ SCH ×4 (03:11→20:50)
[2016-10-31] MEDS: NS 1,000 ML IV SCH ×2 (06:07→20:50)
--- NOTE | 2016-10-31 06:15 | EKG Report ---
Test Performed on : 10/30/2016 01:29:33 AM Test Reason : bradycardia Blood Pressure : / mmHG Vent. Rate : 129 BPM Atrial Rate : 312 BPM P-R Int : 000 ms QRS Dur : 092 ms QT Int : 342 ms P-R-T Axes : 000 009 178 degrees QTc Int : 501 ms Atrial fibrillation. with rapid ventricular response. T wave abnormality, consider inferolateral ischemia Abnormal ECG When compared with ECG of 29-OCT-2016 08:44, (Unconfirmed) Atrial fibrillation. has replaced Sinus rhythm. Vent. rate has increased BY 67 BPM Nonspecific T wave abnormality now evident in Inferior leads Inverted T waves have replaced nonspecific T wave abnormality in Lateral leads Confirmed by Marquis Escobar MD ([id number]) on 11/02/2016 5:54:57 PM
--- NOTE | 2016-10-31 06:15 | EKG Report ---
Test Performed on : 10/28/2016 8:40:32 PM Test Reason : BRADYCARDIA Blood Pressure : / mmHG Vent. Rate : 068 BPM Atrial Rate : 068 BPM P-R Int : 194 ms QRS Dur : 104 ms QT Int : 458 ms P-R-T Axes : 051 -28 112 degrees QTc Int : 487 ms Normal sinus rhythm. Nonspecific T wave abnormality Prolonged QT Abnormal ECG When compared with ECG of 25-OCT-2016 22:11, premature ventricular complexes. are no longer present Confirmed by Marquis Escobar MD ([id number]) on 11/02/2016 8:05:08 AM
--- NOTE | 2016-10-31 06:16 | EKG Report ---
Test Performed on : 10/29/2016 08:44:58 AM Test Reason : bradycardia Blood Pressure : / mmHG Vent. Rate : 062 BPM Atrial Rate : 062 BPM P-R Int : 186 ms QRS Dur : 088 ms QT Int : 436 ms P-R-T Axes : 046 -26 136 degrees QTc Int : 442 ms Poor data quality, interpretation may be adversely affected Sinus rhythm. with fusion complexes and premature atrial complexes. with ventricular escape complexe s. Nonspecific ST and T wave abnormality Abnormal ECG When compared with ECG of 28-OCT-2016 20:40, (Unconfirmed) fusion complexes are now present premature atrial complexes. are now present Sinus rhythm. is now with ventricular escape complexes. Confirmed by Marquis Escobar MD ([id number]) on 11/02/2016 5:48:25 PM
--- NOTE | 2016-10-31 06:19 | EKG Report ---
Test Performed on : 10/29/2016 10:16:51 AM Test Reason : No Order in [employer] Blood Pressure : / mmHG Vent. Rate : 074 BPM Atrial Rate : 074 BPM P-R Int : 182 ms QRS Dur : 102 ms QT Int : 422 ms P-R-T Axes : 052 -44 120 degrees QTc Int : 468 ms Sinus rhythm. with occasional premature ventricular complexes. Left axis deviation Nonspecific T wave abnormality Prolonged QT Abnormal ECG When compaired to EKG of October 29- at 8:44- No significant change was found Confirmed by Marquis Escobar MD ([id number]) on 11/02/2016 5:49:31 PM
[2016-10-31] MEDS: TOPROL XL PO SCH ×2 (08:42→20:42)
[2016-10-31] MEDS: PLETAL PO SCH ×2 (08:43→20:41)
[2016-10-31] MEDS: TENEX PO SCH ×2 (08:43→20:42)
[2016-10-31] MEDS: FLOMAX PO SCH (08:43)
[2016-10-31] MEDS: ARICEPT PO SCH (08:44)
[2016-10-31] MEDS: KLOR-CON PO SCH (08:44)
[2016-10-31] MEDS: LASIX PO SCH (08:44)
[2016-10-31] MEDS: PROCARDIA ER PO SCH (08:45)
[2016-10-31] MEDS: MAG-OX PO SCH ×2 (08:45→20:52)
[2016-10-31] MEDS: ROCEPHIN 1 GM in NS 50 ML IV SCH (10:30)
[2016-10-31] MEDS: SOLU-MEDROL IV SCH (12:29)
--- NOTE | 2016-10-31 14:03 | PROGRESS NOTE ---
DATE: 10/31/2016 SUBJECTIVE: Mr. Mueller continues to be quite confused. He has not had any episodes of atrial fibrillation over the last 24 hours. PHYSICAL EXAMINATION: Vital signs: He is afebrile. Heart rate of 85, blood pressure 103/72. General: No acute distress. Cardiovascular: He sounds to be in a regular rate and rhythm. No murmurs. Lungs: Clear to auscultation bilaterally. He has no increased work of breathing. Abdomen: Soft, nontender. PERTINENT DATA: He has no recent chemistry data today. ASSESSMENT: 1. Acute delirium. 2. Atrial fibrillation. PLAN: Patient has not had any bouts of atrial fibrillation in the last 24 hours. I do not have any further cardiovascular recommendations presently. We may need to consider long-term anticoagulation prior to discharge but currently I would not initiate it considering his current stay in the ICU. cc: MD Eugenio Echeverria MD
--- NOTE | 2016-10-31 17:34 | PROGRESS NOTE ---
DATE: 10/31/2016 SUBJECTIVE: Mr. Mueller has a history of paroxysmal atrial fibrillation. He has converted back spontaneously to normal sinus rhythm. His heart rate is in the range of 54-85. His echocardiogram demonstrated mild tricuspid regurgitation and mild LVH. His the EF was 55%. His blood pressure has been stable. Systolic blood pressures have ranged from 110-145, whereas his diastolic blood pressures have ranged from 70-85. He is more calm, but is still confused and disoriented. When I saw him this afternoon, he was sleeping peacefully. He is still requiring soft restraints. They are using Haldol on a p.r.n. basis. OBJECTIVE: Vital signs: Temperature 98.1 degrees, pulse 85, respirations 14, blood pressure 110/72. Cardiovascular: Regular rate and rhythm with a soft systolic murmur. Lungs: Clear. Abdomen: Soft, nontender, with active bowel sounds. ASSESSMENT AND PLAN: 1. Vascular dementia with acute delirium. His CT scan of the brain showed chronic white matter changes and atrophy. No acute stroke was noted. Cultures are negative. Creatinine is trending down. No other electrolyte abnormalities were noted. His sodium has been normal. He has not had any evidence of hypercalcemia. I wonder if he potentially could be having subclinical seizures. I will arrange for an EEG. 2. Hypertension. His blood pressure is stable. We will continue his current regimen of medications. 3. Paroxysmal atrial fibrillation. His heart rate is well controlled. We will continue diltiazem drip for control of his heart rate. He will most likely need anticoagulation at discharge. cc: Eugenio Bernal MD
[2016-10-31] MEDS: HALDOL IV PRN (23:26)
[2016-11-01] MEDS: LOPRESSOR IV SCH ×2 (01:31→02:31)
[2016-11-01] MEDS: LIBRIUM PO SCH ×2 (01:32→02:27)
[2016-11-01] MEDS: LOVENOX SUBQ SCH (02:27)
[2016-11-01] MEDS: GEODON IM PRN (02:55)
[2016-11-01] MEDS: STERILE WATER INJ. INJ PRN (02:56)
[2016-11-01] MEDS: HUMALOG SUBQ SCH ×4 (03:53→21:06)
[2016-11-01] MEDS: FLOMAX PO SCH (08:48)
[2016-11-01] MEDS: ROCEPHIN 1 GM in NS 50 ML IV SCH (08:48)
[2016-11-01] MEDS: ARICEPT PO SCH (08:48)
[2016-11-01] MEDS: PLETAL PO SCH ×2 (08:49→19:59)
[2016-11-01] MEDS: TOPROL XL PO SCH ×2 (08:49→19:59)
[2016-11-01] MEDS: PROCARDIA ER PO SCH (08:49)
[2016-11-01] MEDS: MAG-OX PO SCH ×2 (08:49→19:59)
[2016-11-01] MEDS: TENEX PO SCH ×2 (08:50→19:59)
[2016-11-01] MEDS: LASIX PO SCH (08:54)
[2016-11-01] MEDS: KLOR-CON PO SCH (08:54)
[2016-11-01 09:03] LABS: HEMATOCRIT 44.9 % (42.0-52.0); HEMOGLOBIN 14.6 g/dL (14.0-18.0); MCH 31.2 PG (27-31); MCHC 32.5 g/dL (33-37); MCV 95.9 FL (81-99); MPV 10.3 FL (7.4-10.4); RBC 4.68 XMIL (4.7-6.1)
[2016-11-01 09:29] LABS: CALCIUM 8.2 mg/dL (8.8-10.2); POTASSIUM 4.4 mmol/L (3.5-5.1)
[2016-11-01] MEDS: NS 1,000 ML IV SCH ×2 (10:15→23:12)
[2016-11-01] MEDS: SOLU-MEDROL IV SCH (12:48)
--- NOTE | 2016-11-01 14:19 | PROGRESS NOTE ---
DATE: 11/01/2016 SUBJECTIVE: Mr. Mueller has a history of vascular dementia with acute delirium. A CT scan of the brain demonstrated chronic white matter changes and cerebral atrophy. Blood cultures have been negative. He has had no significant electrolyte abnormalities. He had a much more peaceful night last night. They only had to give him Geodon 1 time. This morning he knew that he was at the hospital and could tell me his full name. He is still having some baseline confusion. His blood pressure is trending down but he has been bradycardic throughout the night. He remains in normal sinus rhythm. He has had no further episodes of atrial fibrillation. OBJECTIVE: Vital signs: Temperature 96.1 degrees, pulse 63, respiratory rate 12, BP 155/96. CV: Regular rate and rhythm with a soft systolic murmur. Lungs: Clear. Abdomen: Soft, nontender, with active bowel sounds. Neurologic: Cranial nerves 2-12 intact grossly. He has normal tone and strength in the upper and lower extremities bilaterally. DTRs are 2+ and symmetric. He is oriented to name and place. LABORATORY DATA: Various laboratory studies were obtained. A CBC demonstrated a white count of 7.75, hemoglobin 14.6, hematocrit 44.9, and a platelet count 137,000. Electrolytes demonstrated the following. Sodium 144, potassium 4.4, chloride 110, CO2 21, BUN 37, creatinine 1.3, and glucose 121. ASSESSMENT AND PLAN: 1. Hypertension. He has had episodes of bradycardia. We will stop the intravenous Lopressor and continue his regular home oral medications as he is able to swallow without difficulty. 2. Vascular dementia with acute delirium. The delirium seems to be improving clinically. We have attempted to simplify his medications. We will gradually increase his activity and I have made arrangements for him to sit up in a chair every shift. I am hoping that we can unhook him from soft restraints. We will use the Geodon on a p.r.n. basis. We will continue to hold the Namenda as it could potentially be associated with angioedema. We certainly can try low-dose Seroquel if he has any further episodes of psychosis. I am going to check an EEG today. cc: Eugenio Bernal MD
--- NOTE | 2016-11-01 16:19 | EEG REPORT ---
DATE: 11/01/2016 REFERRING PHYSICIAN: Dr. Bernal. EEG #: [id number]. GRAIN LOADER: Rubina Agustin. BACKGROUND INFORMATION/TECHNIQUE: A digitally recorded EEG is obtained with one additional channel for EKG. HISTORY OF PRESENT ILLNESS: A 76-year-old male admitted with agitation and confusion, which has slowly improved over the past several days. An EEG is ordered to detect evidence of seizures. MEDICATIONS: Aricept, Ativan p.r.n., Ceftriaxone, Geodon p.r.n., Haldol p.r.n., Solu-Medrol. EEG FINDINGS: A posterior dominant alpha rhythm is notably absent. The background consists of low voltage alpha, beta and theta greater than delta range frequencies. There is good reactivity and spontaneous variability. Excessive beta range frequency is seen diffusely. No focal slowing. No epileptiform discharges. No seizures. Hyperventilation was not performed. Photic stimulation did not induce a photic driving response. The patient becomes drowsy and stage II sleep is seen at times. The EKG demonstrates some irregularity of the RR intervals, possibly with some PVCs IMPRESSION/CLINICAL CORRELATION: Abnormal routine EEG due to: 1. Moderate generalized slowing indicative of a moderate encephalopathy. Generalized slowing is a nonspecific finding that can be seen in processes that diffusely affect the cerebrum, including toxic, metabolic, pharmacologic, post hypoxic and infectious etiologies. 2. Irregular RR intervals and possibly some PVCs on the EKG lead of unclear clinical significance. Excessive beta range frequency is often a medication effect typically seen with medications such as benzodiazepines. No epileptiform discharges and no seizures are noted on the current study. This does not rule out an underlying seizure disorder. Clinical correlation is advised. cc: MD Eugenio Jay MD [facility]leigh
[2016-11-02] MEDS: LOVENOX SUBQ SCH (00:59)
[2016-11-02] MEDS: HUMALOG SUBQ SCH ×4 (03:59→21:10)
[2016-11-02] MEDS: TENEX PO SCH ×2 (08:30→20:04)
[2016-11-02] MEDS: PROCARDIA ER PO SCH (08:31)
[2016-11-02] MEDS: ARICEPT PO SCH (08:31)
[2016-11-02] MEDS: LASIX PO SCH (08:31)
[2016-11-02] MEDS: MAG-OX PO SCH ×2 (08:31→20:04)
[2016-11-02] MEDS: PLETAL PO SCH ×2 (08:31→20:04)
[2016-11-02] MEDS: FLOMAX PO SCH (08:32)
[2016-11-02] MEDS: KLOR-CON PO SCH (08:32)
[2016-11-02] MEDS: TOPROL XL PO SCH ×2 (08:32→20:04)
[2016-11-02] MEDS: ROCEPHIN 1 GM in NS 50 ML IV SCH (09:52)
[2016-11-02] MEDS: SOLU-MEDROL IV SCH (11:20)
[2016-11-02] MEDS: NS 1,000 ML IV SCH (13:00)
[2016-11-03] MEDS: NS 1,000 ML IV SCH ×2 (00:48→17:38)
[2016-11-03] MEDS: LOVENOX SUBQ SCH (01:05)
[2016-11-03] MEDS: HUMALOG SUBQ SCH ×4 (04:21→21:21)
[2016-11-03] MEDS: PROCARDIA ER PO SCH ×2 (04:42→08:48)
[2016-11-03] MEDS ORDERED: SALINE LOCK IV FLUID XX ONE (08:15)
[2016-11-03] MEDS ORDERED: TOPROL XL PO SCH ×2 (08:20→13:24)
[2016-11-03] MEDS ORDERED: CATAPRES PO PRN (08:21)
[2016-11-03] MEDS: ROCEPHIN 1 GM in NS 50 ML IV SCH (08:46)
[2016-11-03] MEDS: FLOMAX PO SCH (08:46)
[2016-11-03] MEDS: ARICEPT PO SCH (08:46)
[2016-11-03] MEDS: KLOR-CON PO SCH (08:47)
[2016-11-03] MEDS: MAG-OX PO SCH ×2 (08:47→21:18)
[2016-11-03] MEDS: TENEX PO SCH ×2 (08:47→21:33)
[2016-11-03] MEDS: PLETAL PO SCH ×2 (08:47→21:18)
[2016-11-03] MEDS: LASIX PO SCH (08:47)
[2016-11-03] MEDS: TOPROL XL PO SCH (08:48)
[2016-11-03] MEDS: SOLU-MEDROL IV SCH (11:16)
[2016-11-03] MEDS ORDERED: PROCARDIA ER PO SCH (20:04)
[2016-11-03] MEDS: MEVACOR PO SCH ×2 (21:18→21:30)
[2016-11-03] MEDS: ASPIRIN PO SCH (21:30)
[2016-11-04] MEDS: LOVENOX SUBQ SCH ×3 (01:34→23:15)
[2016-11-04] MEDS: HUMALOG SUBQ SCH ×3 (03:19→23:14)
[2016-11-04] MEDS: NS 1,000 ML IV SCH ×2 (04:14→23:11)
[2016-11-04] MEDS: ROCEPHIN 1 GM in NS 50 ML IV SCH (10:40)
[2016-11-04] MEDS: LASIX PO SCH (10:40)
[2016-11-04] MEDS: KLOR-CON PO SCH (10:42)
[2016-11-04] MEDS: FLOMAX PO SCH (10:42)
[2016-11-04] MEDS: ARICEPT PO SCH (10:43)
[2016-11-04] MEDS: TENEX PO SCH ×2 (10:43→23:14)
[2016-11-04] MEDS: ASPIRIN PO SCH (10:43)
[2016-11-04] MEDS: MAG-OX PO SCH ×2 (10:44→23:13)
[2016-11-04] MEDS: PROCARDIA ER PO SCH (10:46)
--- NOTE | 2016-11-04 10:46 | PROGRESS NOTE ---
DATE: 11/04/2016 SUBJECTIVE: Mr. Mueller went into rapid atrial fibrillation this morning with rates currently in the 140s. He is relatively asymptomatic, but he does give varying answers when asked if he is having heart racing. Initially, he said yes, and then on further questioning to ensure he was clear on the question I was asking, he denied any current sensation of heart racing. No shortness of breath. He is lying flat in bed. PHYSICAL EXAMINATION: Vital signs: He is afebrile. Heart rates prior to this morning were in the 60s. Blood pressure most recently was 140/87. Current heart rate is 140 on telemetry. General: He is in no acute distress. Cardiovascular: He is in a tachycardic and irregular rhythm with no murmurs. He has trace lower extremity edema. Chest: Exam sounds clear to auscultation bilaterally. No increased work of breathing. Abdomen: Soft and nontender. No obvious organomegaly. PERTINENT DATA: He has no recent laboratory data. ASSESSMENT: Atrial fibrillation. PLAN: His primary care physician has already reinitiated his beta-glenny. I would initiate amiodarone today at 400 mg t.i.d. for 5 days, followed by 400 mg daily for 5 days, followed by 200 mg daily thereafter as chronic dosing. He certainly would be a candidate for anticoagulation based on his risks, but I am unclear of his fall risk presently, as he has been in the hospital for quite some time and could, perhaps, be quite debilitated. I would likely plan on just keeping him on aspirin initially until followup in the hospital, especially since it seems like his dementia may be more significant than initially thought. cc: MD Euegnio Echeverria MD
[2016-11-04] MEDS: PLETAL PO SCH (10:48)
[2016-11-04] MEDS: LOPRESSOR PO SCH ×2 (11:00→23:13)
[2016-11-04] MEDS: CORDARONE PO SCH ×4 (11:15→23:15)
--- NOTE | 2016-11-04 11:20 | EKG Report ---
Test Performed on : 11/04/2016 09:51:05 AM Test Reason : atrial fibrillation Blood Pressure : / mmHG Vent. Rate : 140 BPM Atrial Rate : 141 BPM P-R Int : 000 ms QRS Dur : 092 ms QT Int : 322 ms P-R-T Axes : 000 015 154 degrees QTc Int : 491 ms Atrial fibrillation. with rapid ventricular response. with premature ventricular or aberrantly condu cted complexes. T wave abnormality, consider lateral ischemia Abnormal ECG When compared with ECG of 30-OCT-2016 01:29, Nonspecific T wave abnormality, improved in Inferior leads Confirmed by Marquis Escobar MD ([id number]) on 11/06/2016 1:22:44 PM
[2016-11-04 14:33] LABS: CALCIUM 8.6 mg/dL (8.8-10.2); POTASSIUM 4.3 mmol/L (3.5-5.1)
--- NOTE | 2016-11-04 17:58 | PROGRESS NOTE ---
DATE: 11/04/2016 SUBJECTIVE: Mr. Mueller has a history of paroxysmal atrial fibrillation. He has converted back to atrial fibrillation with RVR earlier today. He denies any chest pain, tightness, pressure in his chest, dizziness, near syncope or shortness of breath. He was diagnosed with paroxysmal atrial fibrillation earlier during his hospitalization. A 2D echocardiogram demonstrated mild tricuspid regurgitation and trace mitral regurgitation. No segmental wall motion abnormalities were noted. He had an EF of 55%. Dr. Antoine saw him earlier and has started him on amiodarone. He remains in atrial fibrillation but his heart rate is slowing down. He denies any history of rheumatic heart fever. He is on Lovenox 1 mg/kg subcutaneously b.i.d. He does have a history of vascular dementia. The delirium has resolved. He has had 2 quiet nights for the past 2 nights where he has not required any p.r.n. medicines like Geodon or Haldol. He is making slow, steady progress with physical therapy. He was able to walk approximately 125 feet yesterday. PHYSICAL EXAMINATION: Vital Signs: Blood pressure 140/87, he is afebrile, pulse 90, respirations 16. Cardiovascular: Irregularly irregular. Lungs: Clear. Abdomen: Soft, nontender, with active bowel sounds. ASSESSMENT AND PLAN: 1. Paroxysmal atrial fibrillation. He has converted back to atrial fibrillation with rapid ventricular response. EKG demonstrated atrial fibrillation with rapid ventricular response, with heart rate in the 150s. We will continue metoprolol 50 mg b.i.d., Lovenox 1 mg/kg subcutaneously b.i.d. and amiodarone. He had a normal echocardiogram. I will check a TSH, free T4, electrolytes and cardiac enzymes. He does have known underlying heart disease and he may need a stress test to look for ischemia. According to the family, there has been no history of rheumatic heart fever and he probably would be a good candidate for Xarelto or Pradaxa at discharge. 2. Vascular dementia with acute delirium. The delirium has resolved. We will continue Aricept 10 mg daily. We stopped the Namenda because of the potential of Namenda to cause angioedema. We will use Geodon on a p.r.n. basis. cc: Eugenio Bernal MD
[2016-11-04] MEDS: ZOFRAN IV PRN (23:12)
[2016-11-04] MEDS: MEVACOR PO SCH (23:13)
[2016-11-05] MEDS: HALDOL IV PRN ×2 (01:07→23:02)
[2016-11-05] MEDS: CORDARONE PO SCH ×3 (09:15→15:40)
[2016-11-05] MEDS: ARICEPT PO SCH (09:35)
[2016-11-05] MEDS: TENEX PO SCH ×2 (09:36→23:03)
[2016-11-05] MEDS: LOPRESSOR PO SCH ×2 (09:37→23:00)
[2016-11-05] MEDS: KLOR-CON PO SCH (09:37)
[2016-11-05] MEDS: FLOMAX PO SCH (09:37)
[2016-11-05] MEDS: ASPIRIN PO SCH (09:37)
[2016-11-05] MEDS: MAG-OX PO SCH ×2 (09:37→22:59)
[2016-11-05] MEDS: LASIX PO SCH (09:37)
[2016-11-05 11:01] LABS: MANUAL DIFF NEEDED? NO
[2016-11-05 11:04] LABS: BASO% 0.3 % (0.0-0.8); EOS# 0.07 X1000 (0.0-0.7); HEMATOCRIT 46.3 % (42.0-52.0); HEMOGLOBIN 15.4 g/dL (14.0-18.0); LYMPH# 1.29 X1000 (1.2-3.4); LYMPH% 18.6 % (20.5-51.1); MCH 31.8 PG (27-31); MCHC 33.3 g/dL (33-37); MCV 95.7 FL (81-99); MONO# 0.77 X1000 (0.11-0.59); MONO% 11.1 % (1.7-9.3); MPV 10.7 FL (7.4-10.4); PLT 165 X1000 (130-400); RBC 4.84 XMIL (4.7-6.1)
[2016-11-05] MEDS: NS 1,000 ML IV SCH ×2 (11:26→23:01)
[2016-11-05 11:27] LABS: ALBUMIN 3.5 g/dL (3.5-5.0); CALCIUM 8.7 mg/dL (8.8-10.2); POTASSIUM 4.9 mmol/L (3.5-5.1); TOTAL BILIRUBIN 0.48 mg/dL (0.20-1.00); TOTAL PROTEIN 6.9 g/dL (6.3-8.3)
[2016-11-05] MEDS: HUMALOG SUBQ SCH ×5 (11:39→18:31)
[2016-11-05] MEDS: LOVENOX SUBQ SCH ×2 (12:00→23:02)
[2016-11-05 13:49] LABS: URINE CULTURE NEEDED? NO; URINE SOURCE CATH
[2016-11-05 13:51] LABS: BILIRUBIN URINE NEGATIVE (NEGATIVE); BLOOD URINE MODERATE (NEGATIVE); COLOR ORANGE; GLUCOSE URINE NEGATIVE (NEGATIVE); LEUKOCYTES URINE NEGATIVE (NEGATIVE); NITRITE URINE NEGATIVE (NEGATIVE); PH URINE 5.5; PROTEIN URINE 30 mg/dL (NEGATIVE); TURBIDITY URINE HAZY (CLEAR); UROBILINOGEN URINE NORMAL (NORMAL)
[2016-11-05 13:53] LABS: URINE MICRO REVIEW NEEDED? YES
[2016-11-05 13:54] LABS: UR EPITHELIAL CELLS <10 /HPF (<10); URINE BACTERIA NEGATIVE /HPF; URINE RBC TNTC /HPF (<10); URINE WBC <10 /HPF (<10)
--- NOTE | 2016-11-05 16:48 | PROGRESS NOTE ---
DATE: 11/05/2016 SUBJECTIVE: Patient's chart was reviewed. In summary, patient was admitted with angioedema. His hospital course has been complicated by urinary retention, acute delirium complicating underlying vascular dementia, and paroxysmal atrial fibrillation. The patient has been treated with IV steroids with improvement in his angioedema. His delirium has been treated acutely with a Geodon. He has been started on Aricept while hospitalized. His paroxysmal atrial fibrillation is currently being treated with metoprolol and amiodarone therapy. Over the course of the last 24 hours, patient states he has done reasonably well. He converted to atrial fibrillation yesterday, but converted back to sinus rhythm early this morning. This morning he demonstrates some confusion but no aggression. His angioedema has essentially resolved. He complains this morning only of significant weakness as well as urinary frequency with dysuria. He denies fevers, chills, nausea, vomiting, hematuria, or pyuria. OBJECTIVE: Vital signs: T-max 98.6 degrees, heart rate 66-78, respirations 16-20, blood pressure 111 to 145 over 76 to 95. General: Well nourished, well developed, no acute distress. Cardiovascular: Regular rate and rhythm. No significant murmurs, rubs, or gallops. Pulmonary: Clear to auscultation bilaterally. Abdomen: Slightly distended. Positive bowel sounds. Extremities: Moves all extremities well. No significant clubbing, cyanosis, or edema. Dermatologic: Evaluation reveals no evidence of rash. LABORATORY DATA: None. ASSESSMENT AND PLAN: 1. Angioedema-patient has achieved resolution. We will continue to avoid potentially exacerbating medications. He no longer requires steroid intervention. 2. Vascular dementia with acute delirium-the patient has been started on donepezil while hospitalized. The patient is slightly confused today. For now, we will continue as needed Geodon. We will encourage activity. I suspect his symptoms are likely multifactorial. 3. Hypertension-patient's blood pressure is adequately controlled on his current regimen. We will continue this. 4. Paroxysmal atrial fibrillation-as above, patient converted back to a normal sinus rhythm overnight. We will defer management to Dr. Antoine. He currently is being treated with metoprolol, amiodarone, and enoxaparin therapy. 5. Urinary frequency with dysuria-we will check a urinalysis. Examination is concerning for urinary retention. We will check a bladder scan. We will plan to place a Deleon catheter if necessary. We will remain aware. The patient has had significant urinary retention while hospitalized. 6. Acute renal failure-patient was admitted with acute renal failure. He did achieve improvement while hospitalized, however, over the last several days his renal function has deteriorated. We will check a bladder scan. We will recheck labs today. We will follow this. For now, we will continue IV fluids as prescribed. 7. Disposition-at this point, patient continues to require snf care in a hospital setting. We will plan discharge home once appropriate. cc: MD Eugenio Peralta MD
[2016-11-05] MEDS: MEVACOR PO SCH (22:59)
[2016-11-06] MEDS: CORDARONE PO SCH ×2 (06:37→09:50)
[2016-11-06] MEDS: HUMALOG SUBQ SCH ×4 (06:38→22:06)
[2016-11-06] MEDS: MAG-OX PO SCH ×2 (09:47→21:56)
[2016-11-06] MEDS: KLOR-CON PO SCH (09:47)
[2016-11-06] MEDS: ASPIRIN PO SCH (09:48)
[2016-11-06] MEDS: FLOMAX PO SCH (09:48)
[2016-11-06] MEDS: ARICEPT PO SCH (09:48)
[2016-11-06] MEDS: LOPRESSOR PO SCH ×2 (09:48→21:56)
[2016-11-06] MEDS: LASIX PO SCH (09:48)
[2016-11-06] MEDS: NS 1,000 ML IV SCH (09:49)
[2016-11-06] MEDS: TENEX PO SCH ×2 (10:30→21:56)
[2016-11-06] MEDS: LOVENOX SUBQ SCH ×2 (11:12→22:00)
--- NOTE | 2016-11-06 17:40 | PROGRESS NOTE ---
DATE: 11/06/2016 SUBJECTIVE: This morning, patient states he feels much improved from yesterday. Upon my arrival yesterday, patient complained of urinary frequency as well as a feeling of ill being. Examination suggested an enlarged bladder. A bladder scan was performed returning at greater than 1000. A Deleon catheter was placed and approximately 2700 mL of urine was immediately removed. Since having the Deleon catheter placed, patient has felt much improved. He denies fevers, chills, shortness of breath, or chest discomfort. His nausea is slowly improving. He does continue to have considerable fatigue. OBJECTIVE: Vital signs: T-max 98.4 degrees, heart rate 58-78, respirations 16-20, blood pressure 130 to 158 over 75 to 97. General: Well nourished, well developed, no acute distress. Cardiovascular: Regular rate and rhythm. No significant murmurs, rubs, or gallops. Pulmonary: Clear to auscultation bilaterally. Abdomen: Soft, nontender, nondistended. Positive bowel sounds. Extremities: Moves all extremities well. No significant clubbing, cyanosis, or edema. Dermatologic: Evaluation reveals no evidence of rash. LABORATORY DATA: White blood cell count 6.93, hemoglobin 15.4, hematocrit 46.3, platelet count 165,000. Sodium 142, potassium 4.9, chloride 104, bicarb 28, BUN 40, creatinine 1.9, glucose 129, calcium 8.7, total bilirubin 0.48, total protein 6.9, albumin 3.5, alkaline phosphatase 52, AST 90, ALT 50. ASSESSMENT AND PLAN: 1. Angioedema-the patient has achieved resolution with time and steroid intervention. He currently is asymptomatic. 2. Vascular dementia with acute delirium-yesterday, patient was noted to have mild confusion. Today, he appears to be of sound mind. We will continue to follow clinically and continue his current regimen. 3. Hypertension-patient's blood pressure is reasonably controlled on his current regimen. We will continue. 4. Paroxysmal atrial fibrillation-the patient is currently being treated with metoprolol, amiodarone, and enoxaparin therapy per Dr. Antoine. This morning, patient is in a sinus- generated rhythm. We will continue to follow along with Cardiology. 5. Urinary retention-as described above, patient had impressive urinary retention with 2.7 L removed after Deleon catheter was placed. The patient feels much improved at present time. The patient likely will require urologic consultation. We will defer this to Dr. Bernal in the morning. 6. Acute renal failure-patient's creatinine was noted to be slightly elevated within the last several days. This likely was obstructive secondary to his significant bladder distention. We will plan to check kidney function in the a.m. For now, we will continue IV fluids. 7. Transaminitis-this appears to be chronic. We will defer evaluation to Dr. Bernal. 8. Weakness-patient currently is being followed by physical therapy. We will encourage out of bed. 9. Disposition-at this point, patient continues to require halfway care in the hospital setting. We will plan discharge home or to rehab once appropriate. cc: MD Eugenio Peralta MD
[2016-11-06] MEDS: MEVACOR PO SCH (21:56)
[2016-11-07] MEDS: NS 1,000 ML IV SCH ×3 (02:13→14:39)
[2016-11-07] MEDS: HUMALOG SUBQ SCH ×5 (05:40→21:02)
--- NOTE | 2016-11-07 05:48 | EKG Report ---
Test Performed on : 11/05/2016 05:50:27 AM Test Reason : afib Blood Pressure : / mmHG Vent. Rate : 076 BPM Atrial Rate : 076 BPM P-R Int : 188 ms QRS Dur : 098 ms QT Int : 428 ms P-R-T Axes : 039 -17 114 degrees QTc Int : 481 ms Normal sinus rhythm. T wave abnormality, consider lateral ischemia Abnormal ECG When compared with ECG of 04-NOV-2016 09:51, (Unconfirmed) Sinus rhythm. has replaced Atrial fibrillation. Vent. rate has decreased BY 64 BPM Confirmed by Marquis Escobar MD ([id number]) on 11/09/2016 6:50:08 PM
[2016-11-07 06:32] LABS: MANUAL DIFF NEEDED? NO
[2016-11-07 06:48] LABS: BASO% 0.1 % (0.0-0.8); EOS# 0.08 X1000 (0.0-0.7); EOS% 0.9 % (0.0-10.0); HEMATOCRIT 37.1 % (42.0-52.0); HEMOGLOBIN 12.4 g/dL (14.0-18.0); IMM GRAN# 0.02 X1000 (0.0-0.04); IMM GRAN% 0.2 % (0.0-0.5); LYMPH# 1.77 X1000 (1.2-3.4); MCH 31.6 PG (27-31); MCHC 33.4 g/dL (33-37); MCV 94.6 FL (81-99); MONO# 0.99 X1000 (0.11-0.59); MONO% 11.2 % (1.7-9.3); MPV 10.8 FL (7.4-10.4); NEUT% 67.6 % (42.2-75.2); PLT 188 X1000 (130-400); RBC 3.92 XMIL (4.7-6.1)
[2016-11-07 07:12] LABS: ALBUMIN 2.9 g/dL (3.5-5.0); CALCIUM 8.2 mg/dL (8.8-10.2); POTASSIUM 4.2 mmol/L (3.5-5.1); TOTAL BILIRUBIN 0.44 mg/dL (0.20-1.00); TOTAL PROTEIN 5.6 g/dL (6.3-8.3)
[2016-11-07] MEDS ORDERED: TENEX PO SCH (09:00)
[2016-11-07] MEDS: CORDARONE PO SCH (09:07)
[2016-11-07] MEDS: LASIX PO SCH (09:08)
[2016-11-07] MEDS: KLOR-CON PO SCH (09:08)
[2016-11-07] MEDS: ASPIRIN PO SCH (09:08)
[2016-11-07] MEDS: MAG-OX PO SCH ×2 (09:08→21:02)
[2016-11-07] MEDS: LOPRESSOR PO SCH ×2 (09:08→09:09)
[2016-11-07] MEDS: ARICEPT PO SCH (09:09)
[2016-11-07] MEDS: FLOMAX PO SCH (09:09)
[2016-11-07] MEDS: HYTRIN PO SCH (09:16)
--- NOTE | 2016-11-07 09:24 | PROGRESS NOTE ---
DATE: 11/07/2016 SUBJECTIVE: Mr. Cosme Mueller has a history of paroxysmal atrial fibrillation. He remains in normal sinus rhythm. His heart rate is in the range of 57-78. He denies any chest pain, palpitations, or anginal equivalents. He is currently on amiodarone and Lopressor for heart rate. He has a history of BPH. He has had acute urinary retention requiring placement of a Deleon. They put Deleon over the weekend with urine retention of approximately 2400 mL. He appears to be quiet and easily arousable. He is oriented to name and place. There does not appear to be any more acute delirium. He has not had any Haldol or Geodon overnight. OBJECTIVE: Vital Signs: Temperature 97.6 degrees, pulse 78, respirations 20, BP 93/70. CV: Regular rate and rhythm without murmur. Lungs: Clear. Abdomen: Soft, nontender, with active bowel sounds. No hepatosplenomegaly. No abdominal bruits. Extremities: Without edema. ASSESSMENT AND PLAN: 1. Acute urinary retention. We will continue a Deleon catheter. I am going to begin Hytrin 5 mg daily and Proscar 5 mg daily. I will consult Dr. Hopper. Potentially, he would benefit from a transurethral resection of the prostate procedure as an outpatient. 2. Paroxysmal atrial fibrillation. He remains in normal sinus rhythm. His heart rate is well controlled on digoxin, metoprolol, and amiodarone. At the time of discharge, we will most likely treat him with low-dose Eliquis as he has had no previous history of rheumatic heart fever. 3. Acute delirium with a history of vascular dementia. We will continue the Aricept. 4. General debility. We will continue to increase activity and will continue physical therapy. cc: Eugenio Bernal MD
--- NOTE | 2016-11-07 10:23 | EKG Report ---
Test Performed on : 11/07/2016 09:58:02 AM Test Reason : CAT CALL Blood Pressure : / mmHG Vent. Rate : 056 BPM Atrial Rate : 056 BPM P-R Int : 180 ms QRS Dur : 100 ms QT Int : 482 ms P-R-T Axes : 030 -22 130 degrees QTc Int : 465 ms Sinus bradycardia. T wave abnormality, consider lateral ischemia Prolonged QT Abnormal ECG When compared with ECG of 05-NOV-2016 05:50, (Unconfirmed) No significant change was found Confirmed by Marquis Escobar MD ([id number]) on 11/09/2016 7:47:42 PM
[2016-11-07] MEDS: ZOFRAN IV PRN (10:27)
[2016-11-07] MEDS: PROSCAR PO SCH (14:36)
[2016-11-07] MEDS: LOVENOX SUBQ SCH ×2 (14:36→22:13)
[2016-11-07 15:39] LABS: HEMATOCRIT 33.4 % (42.0-52.0); HEMOGLOBIN 11.1 g/dL (14.0-18.0); MCH 31.6 PG (27-31); MCHC 33.2 g/dL (33-37); MCV 95.2 FL (81-99); MPV 10.4 FL (7.4-10.4); RBC 3.51 XMIL (4.7-6.1)
--- NOTE | 2016-11-07 15:45 | CONSULTATION ---
DATE OF CONSULTATION: 11/07/2016 ATTENDING/REFERRING PHYSICIAN: Eugenio Bernal MD HISTORY OF PRESENT ILLNESS: This 76-year-old male with a history of an enlarged prostate and obstructive voiding was admitted with severe angioedema on 10/25/2016. He has other medical problems and was noted to have urinary retention with a postvoid residual of over 2500 mL after a Deleon catheter was placed. He was on Flomax. Proscar was added yesterday and Hytrin started today. The patient denies any previous urologic problems. He states he had a kidney stone many years ago. He denies any previous urologic surgery. The patient does have dementia. PAST MEDICAL HISTORY: Dementia, coronary artery disease, atrial fibrillation, hypertension, elevated cholesterol, peripheral vascular disease. PAST SURGICAL HISTORY: LASIK eye surgery, partial colectomy, skin cancer excisions. SOCIAL HISTORY: No tobacco or alcohol use. ALLERGIES: He is allergic to lisinopril, losartan, and meloxicam. REVIEW OF SYSTEMS: He denies any problems with diabetes, strokes, or seizures. The partial colectomy was for cancer. PHYSICAL EXAMINATION: General: A normally-developed, well-nourished, age-apparent white male, who is cooperative. HEENT: Normal for age. Lungs: Clear. Cardiovascular: Regular rate and rhythm. Abdomen: Flat, soft, nontender. No hepatosplenomegaly or masses. Normal bowel sounds. Back: No CVA tenderness. Genitourinary: Uncircumcised male with Deleon catheter in place. Both testes are down. Scrotal exam is normal. Rectal: Normal sphincter tone. Prostate about 80 grams, smooth, and symmetric. Extremities: No clubbing, cyanosis or edema. Neurologic: No focal deficits, but the patient had to be assisted in standing up and had to be held up in order to do the rectal exam. LABORATORY EVALUATION: White count of 8.86, hemoglobin 12.4, hematocrit 37.1, platelets are 188,000. BUN 27, creatinine 1.7; this has decreased from 1.9 after Deleon catheterization. IMPRESSION: 1. Enlarged prostate with obstructive voiding. 2. Urinary retention. 3. On maximum medical therapy at the present. It can take up to 3 months before voiding improves while on finasteride. RECOMMENDATIONS: 1. Continue Flomax, Hytrin, and Proscar. 2. Would keep Deleon catheter for at least 7 days since his postvoid residual is 2700 mL. Can do voiding trial in the office as an outpatient. Would schedule cystoscopic exam at that time. Thank you for this consultation. cc: MD Eugenio Srivastava MD
[2016-11-07 15:56] LABS: ALBUMIN 2.7 g/dL (3.5-5.0); CALCIUM 7.7 mg/dL (8.8-10.2); POTASSIUM 5.1 mmol/L (3.5-5.1); TOTAL BILIRUBIN 0.45 mg/dL (0.20-1.00); TOTAL PROTEIN 5.2 g/dL (6.3-8.3)
[2016-11-07] MEDS: NORCO-5 PO PRN ×2 (16:47→21:06)
[2016-11-07] MEDS: MEVACOR PO SCH (22:07)
[2016-11-08] MEDS: CARDIZEM 100 MG/NS 100 MG/100 ML IVPB IV SCH ×2 (02:57→08:29)
[2016-11-08] MEDS: NEO-SYNEPHRINE 50 MG in NS 250 ML IV SCH ×4 (03:34→23:24)
[2016-11-08] MEDS: HUMALOG SUBQ SCH ×4 (03:39→21:14)
[2016-11-08] MEDS: NORCO-5 PO PRN (05:12)
--- NOTE | 2016-11-08 05:30 | EKG Report ---
Test Performed on : 11/08/2016 02:28:31 AM Test Reason : INCREASED HR Blood Pressure : / mmHG Vent. Rate : 148 BPM Atrial Rate : 163 BPM P-R Int : 000 ms QRS Dur : 094 ms QT Int : 330 ms P-R-T Axes : 000 -07 147 degrees QTc Int : 518 ms Atrial fibrillation. with rapid ventricular response. with premature ventricular or aberrantly condu cted complexes. ST \T\ Marked T wave abnormality, consider anterolateral ischemia Abnormal ECG When compared with ECG of 07-NOV-2016 09:58, (Unconfirmed) Atrial fibrillation. has replaced Sinus rhythm. Vent. rate has increased BY [address] now depressed in Anterior leads Confirmed by Marquis Escobar MD ([id number]) on 11/09/2016 8:07:28 PM
[2016-11-08] MEDS: FLOMAX PO SCH (08:18)
[2016-11-08] MEDS: HYTRIN PO SCH (08:18)
[2016-11-08] MEDS: PROSCAR PO SCH (08:18)
[2016-11-08] MEDS: ASPIRIN PO SCH (08:18)
[2016-11-08] MEDS: ARICEPT PO SCH (08:18)
[2016-11-08] MEDS: KLOR-CON PO SCH (08:18)
[2016-11-08] MEDS: LASIX PO SCH (08:18)
[2016-11-08] MEDS: MAG-OX PO SCH ×2 (08:19→21:23)
[2016-11-08 09:15] LABS: HEMATOCRIT 29.3 % (42.0-52.0); HEMOGLOBIN 9.6 g/dL (14.0-18.0); MCH 31.7 PG (27-31); MCHC 32.8 g/dL (33-37); MCV 96.7 FL (81-99); MPV 10.3 FL (7.4-10.4); RBC 3.03 XMIL (4.7-6.1)
[2016-11-08] MEDS: CORDARONE PO SCH (09:21)
[2016-11-08 09:38] LABS: CALCIUM 7.6 mg/dL (8.8-10.2); POTASSIUM 4.8 mmol/L (3.5-5.1)
[2016-11-08] MEDS: LOVENOX SUBQ SCH ×2 (09:59→22:11)
--- NOTE | 2016-11-08 11:11 | EKG Report ---
Test Performed on : 11/08/2016 10:57:34 AM Test Reason : converted to sr,already done Blood Pressure : / mmHG Vent. Rate : 066 BPM Atrial Rate : 066 BPM P-R Int : 192 ms QRS Dur : 094 ms QT Int : 426 ms P-R-T Axes : 045 008 174 degrees QTc Int : 446 ms Poor data quality, interpretation may be adversely affected Normal sinus rhythm. ST \T\ T wave abnormality, consider inferolateral ischemia Abnormal ECG When compared with ECG of 08-NOV-2016 02:28, (Unconfirmed) Sinus rhythm. has replaced Atrial fibrillation. Vent. rate has decreased BY [address] \T\ t wave abnormalities in the interolateral leads are more pronounced. Confirmed by Marquis Escobar MD ([id number]) on 11/09/2016 8:20:24 PM
[2016-11-08] MEDS ORDERED: NS 1,000 ML IV SCH (15:10)
[2016-11-08] MEDS ORDERED: CORDARONE IV ONE (15:10)
[2016-11-08] MEDS ORDERED: CORDARONE 150 MG/D5W 150 MG/100 ML IV.SOLN ONE (15:31)
--- NOTE | 2016-11-08 15:56 | PROGRESS NOTE ---
DATE: 11/08/2016 SUBJECTIVE: Mr. Mueller continues to be somewhat confused, but has no complaints presently. His is present in the room. She reports he has been doing well, with no complaints. He is somewhat more oriented. She relays some of the events of the last 24 to 48 hours. PHYSICAL EXAMINATION: Vital signs: He is afebrile. His heart rate presently is 68, his blood pressure is 88/66. His last recorded blood pressure was 88/66. His systolic was in the 110s at the time my examination. Generally: He is in no acute distress. He is pleasant. He has no complaints. Cardiovascular: He is in a regular rate and rhythm. He has no murmurs. He is in sinus. extremities: He has no lower extremity edema. Chest: Clear bilaterally. He has no increased work of breathing. Abdomen: Soft, nontender, nondistended. No obvious organomegaly. PERTINENT DATA: His white count is 7.8, his hematocrit is 29.3, his platelet count is 173,000. His sodium is 139, potassium 4.8, BUN 30, creatinine 2.1. His free T4 was 1.3, his TSH on November 04 was 1.55. ASSESSMENT: 1. Hypotension. 2. Atrial fibrillation. PLAN: We will try an IV load of 150 of IV amiodarone now, and continue him on oral dose. We will try to give a slight fluid challenge with 100 mL an hour for a total of 1 L. The patient is on Lasix, and he has had a negative fluid balance, predominantly over the last 24 to 48 hours, and his creatinine seems to be increasing. I have discussed this with the Primary Team. We will hold his Lasix dose tomorrow. cc: MD Eugenio Echeverria MD
[2016-11-08] MEDS: MEVACOR PO SCH (21:23)
[2016-11-09] MEDS: HUMALOG SUBQ SCH ×4 (03:20→21:02)
[2016-11-09] MEDS: NEO-SYNEPHRINE 50 MG in NS 250 ML IV SCH ×2 (05:43→16:00)
[2016-11-09 06:07] LABS: CALCIUM 7.4 mg/dL (8.8-10.2); POTASSIUM 4.6 mmol/L (3.5-5.1)
[2016-11-09] MEDS: NORCO-5 PO PRN ×2 (07:44→20:28)
--- NOTE | 2016-11-09 09:05 | PROGRESS NOTE ---
DATE: 11/09/2016 SUBJECTIVE: Mr. Mueller has a history of paroxysmal atrial fibrillation. He remains in normal sinus rhythm. His heart rate has been in the 70s and 80s off Cardizem. His blood pressure continues to improve and he is requiring much less support with the phenylephrine. He is down to 40 mics. We had held the Hytrin, as well as the Lasix yesterday and had cautiously given him fluids. He is awake and easily arousable. He is oriented to the hospital and his name. He has not required any medication for delirium or agitation. OBJECTIVE: Vital Signs: Temperature 98.4 degrees, pulse 86, respirations 16, blood pressure 123/75. Cardiovascular: Regular rate and rhythm. Lungs: Clear. Abdomen: Soft, nontender, with active bowel sounds. No hepatosplenomegaly. No abdominal bruits. Extremities: He has a large hematoma on the right upper thigh. ASSESSMENT AND PLAN: 1. Paroxysmal atrial fibrillation. He has converted back to normal sinus rhythm. His heart rate is well controlled off Cardizem. He is currently on amiodarone. We will continue to cautiously rehydrate him with normal saline and hold the Hytrin and Lasix in the hopes of getting him off the Gomez-Synephrine completely. 2. Vascular dementia. He is not having any further episodes of acute delirium. We will continue the Aricept 10 mg daily. We will continue to hold the Namenda, literature studies have suggested that the Namenda can cause angioedema. cc: Eugenio Bernal MD
[2016-11-09] MEDS: KLOR-CON PO SCH (09:13)
[2016-11-09] MEDS: FLOMAX PO SCH (09:15)
[2016-11-09] MEDS: PROSCAR PO SCH (09:15)
[2016-11-09] MEDS: CORDARONE PO SCH (09:16)
[2016-11-09] MEDS: ASPIRIN PO SCH (09:18)
[2016-11-09] MEDS: MAG-OX PO SCH ×2 (09:18→20:28)
[2016-11-09] MEDS: ARICEPT PO SCH (09:18)
[2016-11-09] MEDS ORDERED: CORDARONE 360 MG/D5W 360 MG/200 ML IV.SOLN IV ONE (11:03)
[2016-11-09] MEDS: LOVENOX SUBQ SCH ×2 (11:13→22:50)
[2016-11-09] MEDS: ZOFRAN IV PRN (15:02)
[2016-11-09] MEDS ORDERED: NS 500 ML IV SCH (16:13)
[2016-11-09] MEDS ORDERED: CORDARONE 540 MG in D5W 289.2 ML IV ONE (17:00)
[2016-11-09] MEDS: NS 1,000 ML IV SCH (18:45)
[2016-11-09] MEDS: MEVACOR PO SCH (20:28)
[2016-11-10] MEDS: NS 1,000 ML IV SCH ×3 (02:17→18:26)
[2016-11-10] MEDS: HUMALOG SUBQ SCH ×4 (03:06→21:10)
[2016-11-10] MEDS: CARDIZEM 100 MG/NS 100 MG/100 ML IVPB IV SCH (04:00)
[2016-11-10 05:42] LABS: ALBUMIN 2.5 g/dL (3.5-5.0); CALCIUM 7.4 mg/dL (8.8-10.2); POTASSIUM 5.2 mmol/L (3.5-5.1); TOTAL BILIRUBIN 0.46 mg/dL (0.20-1.00); TOTAL PROTEIN 4.7 g/dL (6.3-8.3)
[2016-11-10 06:24] LABS: BASO% 0.2 % (0.0-0.8); EOS# 0.03 X1000 (0.0-0.7); EOS% 0.3 % (0.0-10.0); HEMATOCRIT 18.2 % (42.0-52.0); HEMOGLOBIN 5.6 g/dL (14.0-18.0); IMM GRAN# 0.04 X1000 (0.0-0.04); IMM GRAN% 0.5 % (0.0-0.5); LYMPH# 1.09 X1000 (1.2-3.4); LYMPH% 12.5 % (20.5-51.1); MANUAL DIFF NEEDED? YES; MCH 30.6 PG (27-31); MCHC 30.8 g/dL (33-37); MCV 99.5 FL (81-99); MONO# 0.99 X1000 (0.11-0.59); MONO% 11.3 % (1.7-9.3); MPV 10.8 FL (7.4-10.4); NEUT% 75.2 % (42.2-75.2); PLT 178 X1000 (130-400); RBC 1.83 XMIL (4.7-6.1)
[2016-11-10] MEDS ORDERED: TYLENOL PO ONE (07:51)
[2016-11-10] MEDS ORDERED: BENADRYL PO ONE (07:51)
--- NOTE | 2016-11-10 08:23 | PROGRESS NOTE ---
DATE: 11/10/2016 SUBJECTIVE: Mr. Mueller has a history of paroxysmal atrial fibrillation. He has been going in and out of atrial fibrillation. During the night, his heart rate got up into the 120s and 130s, and he was started back on a Cardizem drip. He is now off the Cardizem drip and his heart rate is remaining in the 70s and 80s. He denies any chest pain, palpitations, or anginal equivalents. His blood pressure has been ranging from 106 to 140, whereas his diastolic blood pressures have been in the 50s and 60s. He is now off Gomez. He continues with right hip and buttock pain. He does have a large hematoma on the right buttock and right hip. OBJECTIVE: Temperature 97.8 degrees, pulse 66, respirations 22, BP 114/59. CV: Irregularly irregular. Lungs clear. Abdomen soft, nontender, with active bowel sounds. Extremities: There is a large hematoma on the right thigh and right buttock. LABORATORY DATA: Various laboratory studies were obtained. A CBC demonstrated a white count of 8.73, RBC 1.83, hemoglobin 5.6 and hematocrit of 18.2. Electrolytes demonstrate the following: Sodium 139, potassium 5.2, chloride 105. BUN 29, creatinine 1.8, and glucose 116. ASSESSMENT AND PLAN: 1. Acute blood loss anemia. He does have baseline anemia due to chronic renal insufficiency. His baseline creatinine is typically in the 1.4-1.5 range. We will type, cross match, and transfuse 2 units of packed red blood cells. He is currently taking Lovenox because of the atrial fibrillation in order to reduce the risk of stroke. I will stop the Lovenox. We will obtain stool cards to look for blood in the bowel movements. I will add pantoprazole 40 mg IV daily to suppress acid production in his stomach. We will also obtain a CT of the abdomen and pelvis without contrast to make sure that there has been no evidence of a retroperitoneal bleed secondary to the Lovenox. 2. Paroxysmal atrial fibrillation. He remains in atrial fibrillation. We will complete the amiodarone drip and continue oral amiodarone. We will most likely use digoxin or low-dose beta blockers for rate control. cc: Eugenio Bernal MD
--- NOTE | 2016-11-10 08:49 | PROGRESS NOTE ---
DATE: 11/10/2016 SUBJECTIVE: Mr. Mueller is comfortable this morning. He has no complaints. Review of his telemetry overnight has not shown any significant atrial fibrillation episodes on his chart. PHYSICAL EXAMINATION: He is afebrile. His heart rate is 80. Blood pressure is 133/62. His I's and O's have continued to be positive over the last 24 hours. General: He is in no acute distress. Cardiovascular: He is in a regular rate and rhythm with telemetry currently showing sinus rhythm. Abdomen: Soft, nontender, nondistended. He has no obvious organomegaly. Skin Exam: Warm and dry throughout. PERTINENT DATA: His white count is 8.7. His hemoglobin is 5.6 with hematocrit of 18.2. His platelet count is 178,000. His sodium is 139, potassium 5.2. His BUN is 29 with a creatinine of 1.8. His albumin level was 2.5. ASSESSMENT: 1. Prominent anemia. 2. Atrial fibrillation. 3. Dementia with periodic delirium. PLAN: His atrial fibrillation seems reasonably controlled presently. He is currently on IV amiodarone infusion. I will switch that back over to oral at 400 mg daily. I would recommend workup of the anemia. Dr. Bernal has already ordered 2 units of packed cells which I would agree with. Certainly we are going to have more difficulty maintaining sinus rhythm in a patient with such a profound anemia as well as use of pressors. Likely his hypotension is being contributed to by the profound anemia which can also be driving the atrial fibrillation. His potassium is 5.2 today. I will discontinue the potassium supplement that he is currently on. cc: MD Eugenio Echeverria MD
[2016-11-10] MEDS: MAG-OX PO SCH ×2 (09:24→19:59)
[2016-11-10] MEDS: FLOMAX PO SCH (09:24)
[2016-11-10] MEDS: ARICEPT PO SCH (09:25)
[2016-11-10] MEDS: CORDARONE PO SCH (09:25)
[2016-11-10] MEDS: PROSCAR PO SCH (09:25)
[2016-11-10] MEDS: ASPIRIN PO SCH (09:25)
--- NOTE | 2016-11-10 09:28 | Diag Imaging Result Doc PS360 ---
CT ABDOMEN/PELVIS W/O CONTRAST, CT EXTREM LOWER W/O CONTRAST - 11/10/2016 INDICATION: anemia and large hematoma on buttocks----retroperi TECHNIQUE: A CT dose reduction protocol was used. CT abdomen and pelvis. CT of the right thigh. COMPARISON: None FINDINGS: There is COPD in the lung bases. There is trace dependent consolidation or atelectasis in the left lung base. There are a couple of relatively large complicated intramuscular fluid collections of the right leg. The largest is in the hamstring musculature. This demonstrates a fluid fluid level reminiscent of a hematocrit level. Actually this measures about 5.6 x 7 cm in AP and lateral dimensions. This measures about 21 cm in length. There is a small 3.1 cm fluid collection in the abductor musculature anteriorly as well. There is a Deleon catheter in the urinary bladder. Urinary bladder is collapsed but the wall is extremely thickened measuring about a centimeter. The prostate gland is enlarged measuring about 6.8 x 6.5 x 6.6 cm. There is an indeterminate fluid collection at the anterior left side of the pelvis. This contains air and fluid. This measures 6.1 x 7.8 cm in AP and lateral dimensions. Since no contrast was given and it is difficult to distinguish from bowel but this is suspected to be extra visceral. There is a normal appendix. There are numerous diverticula of the distal colon. The left kidney demonstrates a large cyst at the lower pole measuring 6.5 cm. The left kidney also demonstrates significant hydronephrosis compatible with a UPJ obstruction. There is mild atrophy of the left kidney. There are a few cysts of the right kidney as well measuring up to 4.5 cm. There may be a tiny right renal stone measuring 1 mm. No hydronephrosis on the right. There is some granular layering dense material in the gallbladder suggesting gallstones or sludge. There are moderate degenerative changes of the spine. No acute or suspicious bony lesion. There is ill-defined subcutaneous edema all throughout the right thigh. IMPRESSION: 1. There are two intramuscular fluid collections at the anterior and posterior right thigh. The larger is clearly very complicated and suggests intramuscular hematomas. Diffuse subcutaneous edema throughout the right thigh. 2. Questionable extra visceral gas and fluid collection in the left side of the pelvis. Consider further evaluation with a CT abdomen pelvis after a long oral contrast preparation. At least six hours worth. 3. Enlarged prostate gland. 4. Severely thickened urinary bladder wall compatible with chronic cystitis and/or urinary bladder hypertension. 5. Probable layering gallstones or sludge in the gallbladder. 6. Cannot exclude small infiltrate in the left lower lobe. Electronically signed by Misael Neal 11/10/2016 9:26 AM
[2016-11-10] MEDS ORDERED: NS 250 ML ONE (10:10)
[2016-11-10] MEDS: NORCO-5 PO PRN ×2 (15:10→20:45)
[2016-11-10] MEDS: MEVACOR PO SCH (19:59)
[2016-11-11] MEDS: NORCO-5 PO PRN (02:13)
[2016-11-11] MEDS: NS 1,000 ML IV SCH ×3 (02:13→19:20)
[2016-11-11] MEDS: HUMALOG SUBQ SCH ×4 (03:14→21:02)
[2016-11-11] MEDS: STERILE WATER INJ. INJ PRN (04:25)
[2016-11-11] MEDS: GEODON IM PRN ×2 (04:25→21:58)
[2016-11-11] MEDS: ASPIRIN PO SCH (08:01)
[2016-11-11] MEDS: ARICEPT PO SCH (08:01)
[2016-11-11] MEDS: MAG-OX PO SCH ×2 (08:01→20:14)
[2016-11-11] MEDS: PROSCAR PO SCH (08:01)
[2016-11-11] MEDS: FLOMAX PO SCH (08:02)
[2016-11-11] MEDS: CORDARONE PO SCH (08:02)
--- NOTE | 2016-11-11 08:56 | PROGRESS NOTE ---
DATE: 11/11/2016 SUBJECTIVE: Mr. Mueller remains in normal sinus rhythm. His heart rate has ranged from 88-94 off a diltiazem drip. He is maintaining good blood pressures off Gomez-Synephrine. Systolic blood pressures are ranging from 132-166, whereas his diastolic blood pressures are ranging from 71-89. He was a little bit restless last night and pulled out his IV. They gave him a one time dose of Geodon. They were able to reorient him, and he has been sleeping peacefully since that time. OBJECTIVE: Vital signs: Temperature 98.0 degrees, pulse 92, respiratory rate 21, BP 158/89. CV: Regular rate and rhythm. Lungs: Clear. Abdomen: Soft, nontender, with active bowel sounds. ASSESSMENT AND PLAN: 1. Acute blood loss anemia. His blood pressure is stable off pressors. He was given 2 units of packed red blood cells yesterday. I will recheck a hemoglobin and hematocrit this morning. His stools were positive for occult blood, and I believe that he will need an EGD and colonoscopy once fully stabilized. 2. Paroxysmal atrial fibrillation. He remains in normal sinus rhythm. His heart rate has been ranging from 88-94. We will continue oral amiodarone. We will monitor his heart rate closely. If his heart rate gets above 100 consistently, we will add low-dose Coreg. 3. Vascular dementia. We will continue the Aricept and hold Namenda, as it can cause angioedema. We will use Geodon on a p.r.n. basis. cc: Eugenio Bernal MD
[2016-11-11] MEDS ORDERED: CORDARONE PO SCH ×2 (09:00)
[2016-11-11 09:16] LABS: HEMATOCRIT 18.7 % (42.0-52.0)
[2016-11-11 09:24] LABS: CALCIUM 7.7 mg/dL (8.8-10.2); POTASSIUM 5.2 mmol/L (3.5-5.1)
--- NOTE | 2016-11-11 09:48 | PROGRESS NOTE ---
DATE: 11/11/2016 SUBJECTIVE: Mr. Mueller reports he is doing well. He has no complaints, no heart racing. PHYSICAL EXAMINATION: Vital signs: He is afebrile. His heart rates have been anywhere from the 70s to the around 100. Over the last 24 hours, his blood pressure is 158/89. General: He is in no acute distress. Cardiovascular: He sounds to be in a regular rate and rhythm. Extremities: He has trace lower extremity edema, and warm and well perfused lower extremities. Chest: Has some mildly coarse breath sounds somewhat diffusely. No increased work of breathing. Abdomen: Soft, nontender. PERTINENT DATA: He had a hemoglobin and hematocrit this morning that were 5.8 and 18.7 respectively. No other labs drawn. ASSESSMENT: 1. Acute blood loss anemia. 2. Atrial fibrillation. 3. Renal insufficiency. PLAN: Patient's hemoglobin and hematocrit did not improve significantly with 2 units of blood transfused. Will make sure Dr. Bernal is aware of this. He apparently had a Hemoccult positive stool in the interim. In addition, he had an ultrasound performed yesterday which suggests a nonocclusive thrombus in his right lower extremity venous system. Unfortunately, the patient cannot currently be treated with anticoagulation secondary to his acute bleeding issues. He certainly could have some bleeding secondary to possibly have a hematoma that he has in his right lower extremity. In addition, the could also be a GI source given his Hemoccult-positive stool. We will defer further evaluation to a GI and Dr. Bernal. For now, we will continue him on oral amiodarone as he seems to be maintaining sinus rhythm relatively well over the last 36 hours. He is currently on oral amiodarone at 400 mg daily. cc: MD Eugenio Echeverria MD
[2016-11-11] MEDS ORDERED: LASIX ONE (11:45)
[2016-11-11 12:14] LABS: HEMOGLOBIN 5.8 g/dL (14.0-18.0)
--- NOTE | 2016-11-11 12:46 | Diag Imaging Result Doc PS360 ---
EXAM: CYSTOGRAM 1 2 OR 3 FILMS INDICATION: bladder diverticulum TECHNIQUE: 250 mL of Cysto-Conray contrast was infused into the urinary bladder via Deleon catheter under fluoroscopy and spot images were obtained usual fashion. COMPARISON: CT dated 11/10/2016. No prior cystogram is available for comparison. FINDINGS: Upon infusion of the contrast, there was filling of a very large bladder diverticulum on the left this actually corresponds to the pelvic fluid collection containing gas at the anterior aspect of the pelvis on the left that was seen on the recent CT. The gas was probably introduced via the Deleon catheter, which was in place on the previous CT. The [place] urinary bladder is much smaller than the large diverticulum. The morley of the [place] urinary bladder are irregular and there appears to be thickened mucosa. This is probably related to chronic trabecular thickening as result of chronic partial bladder outlet obstruction related to a very large prostate that can be seen on the CT. However, component of cystitis is not completely excluded. No vesicoureteral reflux was appreciated. 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 2.Urinary bladder wall irregularity and thickening that is probably related to trabecular thickening as a result of prostatic hypertrophy. Although a component of cystitis cannot completely be excluded. Electronically signed by Vamsi Mclain 11/11/2016 12:43 PM
[2016-11-11] MEDS ORDERED: CARDIZEM IV ONE ×2 (13:12→17:27)
--- NOTE | 2016-11-11 13:57 | PROGRESS NOTE ---
DATE: 11/11/2016 SUBJECTIVE: Mr. Mueller had a cystogram which demonstrated a massive urinary bladder diverticula on the left and chronic irregularity and thickening of the urinary bladder as a result of BPH. His blood counts remained low in spite of 2 units of packed red blood cells. Stools were positive for occult blood. His hemoglobin and hematocrit this morning were 5.8 and 18.7. OBJECTIVE: Vital signs: Temperature 98.2 degrees, BP 121/75, pulse 122 and irregular. CV: Regularly irregular. Lungs: Clear. Abdomen: Soft, nontender, with active bowel sounds. ASSESSMENT AND PLAN: Acute blood loss anemia. Because of the heme-positive stools, I will consult Dr. Ridley for consideration of an esophagogastroduodenoscopy and colonoscopy. I will type, cross match and transfuse 2 units of packed red blood cells. We will recheck a hemoglobin and hematocrit every 6 hours and transfuse as indicated. cc: Eugenio Bernal MD
[2016-11-11] MEDS: CARDIZEM 100 MG/NS 100 MG/100 ML IVPB IV SCH (17:38)
[2016-11-11] MEDS ORDERED: CARDIZEM ONE (17:39)
[2016-11-11 18:26] LABS: MANUAL DIFF NEEDED? NO
[2016-11-11 18:39] LABS: INR 1.05; PROTIME 11.1 Seconds (9.2-11.7)
[2016-11-11 18:42] LABS: BASO% 0.2 % (0.0-0.8); EOS# 0.01 X1000 (0.0-0.7); EOS% 0.1 % (0.0-10.0); HEMATOCRIT 22.6 % (42.0-52.0); HEMOGLOBIN 7.4 g/dL (14.0-18.0); IMM GRAN# 0.03 X1000 (0.0-0.04); IMM GRAN% 0.3 % (0.0-0.5); LYMPH# 1.07 X1000 (1.2-3.4); LYMPH% 11.4 % (20.5-51.1); MCH 30.3 PG (27-31); MCHC 32.7 g/dL (33-37); MCV 92.6 FL (81-99); MONO# 0.97 X1000 (0.11-0.59); MONO% 10.4 % (1.7-9.3); MPV 10.3 FL (7.4-10.4); NEUT% 77.6 % (42.2-75.2); PLT 170 X1000 (130-400); RBC 2.44 XMIL (4.7-6.1)
[2016-11-11 18:50] LABS: ALBUMIN 2.5 g/dL (3.5-5.0); DIRECT BILIRUBIN 0.2 mg/dL (0.00-0.20); TOTAL BILIRUBIN 1.07 mg/dL (0.20-1.00)
[2016-11-11] MEDS: SODIUM CHLORIDE 0.9% INJ SCH (19:20)
[2016-11-11] MEDS: PROTONIX IV SCH (19:20)
--- NOTE | 2016-11-11 19:33 | CONSULTATION ---
DATE OF CONSULTATION: 11/11/2016 REFERRING PHYSICIAN: Gabino Bernal M.D. INDICATION FOR CONSULTATION: 1. Profound anemia. 2. Heme-positive stools. 3. History of colon cancer. 4. History of colon polyps. 5. Family history of colon cancer and colon polyps. HISTORY OF PRESENT ILLNESS: The patient is a 76-year-old white male who was admitted on 10/25/2016 after developing acute angioedema. The cause of his angioedema is unclear but is presumably related to his medications. During the hospitalization, the patient had resolution of the angioedema with IV steroids and Benadryl. His clinical course has been remarkable for acute delirium that developed approximately 48 hours after hospitalization followed by the new onset of atrial fibrillation with rapid ventricular response and apneic episodes at night suggested that he has an underlying diagnosis of obstructive sleep apnea. On 10/29/2016, he was noted to be hypotensive. His Lasix was held. He developed left lower extremity edema on 10/30/2016. He also was noted to have recurrent urinary retention on 10/30/2016. On 11/04/2016, he was placed on Lovenox for his atrial fibrillation with rapid ventricular response. Over the next 2-3 days, the patient had some clinical improvement. However, on 11/08/2016, he was noted to be hypotensive again. His Lasix was held. On , he was on pressors and noted to have a small right flank hematoma with right lower extremity edema. Doppler ultrasound confirmed a nonocclusive DVT in the right lower extremity. However, the hematoma was rapidly increasing in size. His Lovenox was discontinued on 11/09/2016. Over the next 48 hours, his hematoma has continued to expand. It now extends from his nipple line of his right chest to the mid right calf. In addition, he was noted to have increased abdominal distention, heme-positive stool and a hemoglobin of 5.6 with hematocrit of 18.2. Upon testing, his stools were found to be guaiac positive. Because of his anemia and heme-positive stools we are asked to participate in his care. According to his daughter, the patient was found to have colon cancer by Dr. Persaud approximately 15 years ago. Postresection of his colon cancer, he was found to have recurrent polyps. She reports that his last visit with Dr. Persaud was more than 10 years ago. From a family history perspective, the patient 's paternal uncle had colon cancer in his 60s. The patient's brother had colon cancer in his 60s. His son has colon cancer in his 40s. His daughter has colon polyps in her 40s. She reports that other family members including distant cousins have colon polyps and colon cancer but she is not exactly sure which family members. She is extremely concerned and would like for him to have a repeat upper and lower endoscopy. PAST MEDICAL HISTORY: Remarkable for. 1. Hypertension. 2. Colon cancer. 3. Colon polyps. 4. Vascular dementia. 5. Angioedema. 6. New onset atrial fibrillation with rapid ventricular response. 7. Apneic episodes suggestive of obstructive sleep apnea. 8. Urinary retention. 9. 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 10. Prostatic hypertrophy. 11. DVT in the right lower extremity. 12. Altered mental status this admission. 13. New right flank hematoma with extension this admission. PAST SURGICAL HISTORY: 1. LASIK eye surgery. 2. Partial colectomy for colon cancer. 3. Coronary artery stent placement. 4. Skin cancer excisions. FAMILY HISTORY: Remarkable for colon cancer and colon polyps as noted above. In addition, several family members have diabetes, Alzheimer disease, hypertension, end- stage kidney disease, peripheral vascular disease and heart disease. These are present in all first- degree relatives. SOCIAL HISTORY: Reportedly negative for tobacco, alcohol and recreational drug use according to the chart. However, his daughter notes that he drank heavy years ago and recently had "alcohol." We were unable to quantify the exact amount of alcohol intake. MEDICATION ALLERGIES: 1. JIMENA inhibitors. 2. ARBS. HOME MEDICATIONS: 1. Mobic. 2. Namenda. 3. Metoprolol. 4. Nifedipine. 5. Flomax. 6. Lovastatin. 7. Tenex. 8. Lasix. 9. Pepcid. 10. Aricept. 11. Catapres. 12. Pletal. 13. Aspirin. REVIEW OF SYSTEMS: Today was difficult to obtain. The patient denied chest pain, shortness of breath. He denied abdominal pain. He notes loss of appetite. Review of the record showed that his oral intake has been erratic at best. He is consuming approximately small bites to 25% of his meals on average this admission. His nurse reports that the patient is having soft brown liquid stools. There was no evidence of melena. PHYSICAL EXAM: Vital signs: His blood pressure is 113/63, pulse is 79, respirations 16, temperature of 98.3 degrees. His oxygen saturation is 100% on 2 L. Heart: Rhythm is currently normal sinus rhythm. However, he has had atrial fibrillation with RVR over the last 24-48 hours. HEENT: Negative for jaundice. His oropharyngeal mucosa membranes are slightly dry. Pulmonary: He has notable congestion with bibasilar rales and end-expiratory wheezes. Cardiovascular: Reveals regular rate and rhythm with no gallops or rubs. Abdomen: Reveals normoactive bowel sounds. The abdomen is soft, nontender with no rebound or guarding. There is a well-healed midline scar. His right flank is remarkable for a large hematoma that begins at the right nipple line and extend of around his back, down his hip, across his buttocks into his scrotum and down to the right calf. The tissue is firm but there is no evidence of rubor. Extremities: Bilaterally are remarkable for pitting edema notably right greater than left. OBJECTIVE DATA: Remarkable for hemoglobin of 5.8, with hematocrit of 18.7. Sodium is 138, potassium 5.2, chloride 105, CO2 27, BUN 29, creatinine 1.9 with a glucose of 154 and calcium of 7.7. IMPRESSION: 1. Profound anemia. 2. Massive hematoma. 3. Deep vein thrombosis. 4. Personal history of colon cancer. 5. Personal history of colon polyps. 6. Family history of colon cancer. 7. Family history of colon polyps. 8. Atrial fibrillation with rapid ventricular response. 9. Poor p.o. intake. RECOMMENDATION: 1. From a GI perspective, the patient is currently receiving a blood transfusion which we agree with. It should be noted that over the last 24 hours his hemoglobin has not corrected after receiving blood transfusion. On 11/10/2016, it was 5.6. He received 2 units of packed red blood cells and it was 5.8 with hematocrit of 18.7. Therefore, I would continue transfusing to achieve a hemoglobin greater than 7.0. 2. The patient has a personal history of colon cancer as well as gastroesophageal reflux disease. I will place him on the schedule for an EGD and colonoscopy on Monday. 3. He currently has new onset atrial fibrillation with rapid ventricular response and a nonocclusive deep vein thrombosis in the right lower extremity. From anesthesia perspective, we will need to have rate control if not cardioversion to normal sinus rhythm prior to the endoscopy. I will ask anesthesia to assess him on Monday morning prior to his endoscopic therapy. 4. Please check liver function tests as I suspect the patient has developed malnutrition. His oral intake has been somewhat erratic. His previous albumins have been declining consistent with his poor oral intake. He may require placement of a Dobbhoff feeding tube over the weekend to help with nutrition support. 5. I will order a CEA with the next blood draw. This will help us to know if he has evidence of recurrent colon cancer. 6. Because of the patient's family history, he would also benefit from genetic counseling as an outpatient. I will refer him to Dr. Sheri Vasquez for counseling. If we find a malignant lesion on endoscopy, it would be reasonable to consider an inpatient evaluation at that time. I recommend consulting Dr. Sheri Vasquez for further evaluation of the massive hematoma and for genetic counseling in light of the patient's personal as well as family history. 7. Please note, if he remains unstable from a cardiac standpoint, we can schedule outpatient endoscopy giving him time to recover. 8. Additional recommendations to follow based on the clinical course. TIME SPENT: More than 50 minutes was spent in direct patient care. cc: MD Eugenio Amador MD MTDD
--- NOTE | 2016-11-11 20:11 | Diag Imaging Result Doc PS360 ---
EXAM: LASIX RENOGRAM INDICATION: question of left UPJ obstruction, renal insufficieny TECHNIQUE: 2.89 mCi of technetium 99 MAG3 citrate was administered intravenously and images were obtained usual fashion post administration. At 20 minutes after injection, 40 mg of IV furosemide was administered and imaging was continued in the usual fashion. COMPARISON: None. FINDINGS: The total MAG3 clearance was 78.31 mL/m with an expected MAG3 clearance of 206.01. The left kidney MAG3 clearance was 6.15 and the right kidney MAG3 clearance was 72.16. The perfusion percentage for the left kidney was 37% and for the right it was 63%. Percent uptake for the left kidney was 7.9% and for the right kidney was 92%. The time to peak for the right kidney was 3.7 minutes. The activity of the left kidney continued to rise throughout the duration of the study without reaching a clear peak. After the diuretic was administered, there was normal washout of the right kidney. The activity continued to rise in the left kidney after administration of the diuretic at a rate that was unchanged from before the administration. This is suggestive of obstruction. IMPRESSION: Poorly functioning left kidney with activity that continued to rise after administration of the diuretic suggesting obstruction. Electronically signed by Vamsi Mclain 11/11/2016 8:09 PM
[2016-11-11] MEDS: MEVACOR PO SCH (20:14)
[2016-11-12 00:17] LABS: MANUAL DIFF NEEDED? NO
[2016-11-12 00:23] LABS: BASO% 0.1 % (0.0-0.8); EOS# 0.02 X1000 (0.0-0.7); EOS% 0.2 % (0.0-10.0); HEMATOCRIT 19.9 % (42.0-52.0); HEMOGLOBIN 6.4 g/dL (14.0-18.0); IMM GRAN# 0.02 X1000 (0.0-0.04); IMM GRAN% 0.2 % (0.0-0.5); LYMPH# 0.96 X1000 (1.2-3.4); LYMPH% 11.6 % (20.5-51.1); MCHC 32.2 g/dL (33-37); MCV 93.4 FL (81-99); MONO% 10.9 % (1.7-9.3); MPV 10.1 FL (7.4-10.4); PLT 176 X1000 (130-400); RBC 2.13 XMIL (4.7-6.1)
[2016-11-12] MEDS: HALDOL IV PRN (02:12)
[2016-11-12] MEDS: NS 1,000 ML IV SCH ×4 (02:14→21:27)
[2016-11-12] MEDS: HUMALOG SUBQ SCH ×4 (03:30→22:52)
[2016-11-12] MEDS: SODIUM CHLORIDE 0.9% INJ SCH (06:07)
[2016-11-12] MEDS: PROTONIX IV SCH ×2 (06:07→20:37)
[2016-11-12] MEDS: CORDARONE PO SCH (08:03)
[2016-11-12] MEDS: FLOMAX PO SCH (08:03)
[2016-11-12] MEDS: MAG-OX PO SCH ×2 (08:03→20:37)
[2016-11-12] MEDS: PROSCAR PO SCH (08:03)
[2016-11-12] MEDS: ASPIRIN PO SCH (08:03)
[2016-11-12] MEDS: ARICEPT PO SCH (08:03)
[2016-11-12 09:10] LABS: MANUAL DIFF NEEDED? NO
[2016-11-12 09:37] LABS: BASO% 0.2 % (0.0-0.8); EOS# 0.03 X1000 (0.0-0.7); EOS% 0.3 % (0.0-10.0); HEMATOCRIT 27.1 % (42.0-52.0); IMM GRAN# 0.05 X1000 (0.0-0.04); IMM GRAN% 0.5 % (0.0-0.5); LYMPH# 0.92 X1000 (1.2-3.4); LYMPH% 10.1 % (20.5-51.1); MCH 30.3 PG (27-31); MCHC 33.2 g/dL (33-37); MCV 91.2 FL (81-99); MONO# 0.98 X1000 (0.11-0.59); MONO% 10.7 % (1.7-9.3); NEUT% 78.2 % (42.2-75.2); PLT 164 X1000 (130-400); RBC 2.97 XMIL (4.7-6.1)
[2016-11-12 09:46] LABS: ALBUMIN 2.3 g/dL (3.5-5.0); CALCIUM 7.1 mg/dL (8.8-10.2); POTASSIUM 4.4 mmol/L (3.5-5.1); TOTAL BILIRUBIN 1.23 mg/dL (0.20-1.00); TOTAL PROTEIN 4.5 g/dL (6.3-8.3)
[2016-11-12] MEDS: CARDIZEM 100 MG/NS 100 MG/100 ML IVPB IV SCH (12:58)
--- NOTE | 2016-11-12 13:34 | PROGRESS NOTE ---
DATE: 11/12/2016 CHIEF COMPLAINT: Swelling of the tongue, weakness, irregular heartbeat. SUBJECTIVE: Mr. Mueller is having some cough, sounds somewhat congested. He feels weak. He is going in and out of atrial fibrillation. He has been put intermittently on IV Cardizem. He is also taking oral doses of amiodarone 400 mg. OBJECTIVE: Vital signs: His pulse right now is 130, temperature 98.5, blood pressure 140/80, respirations 20, temperature is 98.5. General: He is elderly, awake, pale-looking, in no distress. HEENT: Unremarkable. Chest: Diminished breath sounds diffusely with some rhonchi. Cardiac: Heart sounds are irregularly irregular, rapid without gallop or murmur. Abdomen: Soft, no masses, no hepatomegaly. Extremities: No edema. The right leg is swollen. He does have extensive ecchymoses and swelling of the right flank/thigh in the back. Neurological: He has no focal deficits or weakness. IMPRESSION: 1. Patient who presented to the hospital with swollen tongue and possible angioedema. 2. Paroxysmal atrial fibrillation. 3. A history of dementia. 4. Anemia with an extensive deep hematoma in the right thigh and flank. RECOMMENDATION: From my viewpoint, we will put him back on IV Cardizem to control the heart rate and will take it from there. cc: MD Eugenio Henson MD
--- NOTE | 2016-11-12 13:36 | CONSULTATION ---
DATE OF CONSULTATION: 11/12/2016 HISTORY OF PRESENT ILLNESS: This is a 76-year-old male, who is admitted to ICU with angioedema. He has got a history of colon cancer. He has been treated for this and gradually has been improving, but developed a drop in his hematocrit that prompted investigation. He has been on therapeutic Lovenox for atrial fibrillation. He has had really multiple issues in the ICU. CT scan on 11/10/2016 showed some right thigh intramuscular hematomas. He has a lower extremity ultrasound on the right that shows nonocclusive right deep femoral DVT. There is also some question on his CT scan of the abdomen. There is some gas and fluid collection in the left side of his pelvis. He clinically has been doing okay. PAST MEDICAL HISTORY: 1. History of colon cancer with colon resection previously. 2. Hypertension. 3. Dementia. 4. Angioedema. 5. Atrial fibrillation with RVR. 6. Obstructive sleep apnea. 7. Urinary diverticulum left lower abdomen. 8. Prostatic hypertrophy. 9. Right lower extremity DVT. 10. Right thigh hematoma. SOCIAL HISTORY: Negative for tobacco, alcohol, or drugs. His daughter is here with him today. FAMILY HISTORY: Reviewed and noncontributory to his current condition. SURGICAL HISTORY: Lasik, partial colectomy, coronary artery stent, skin cancer. REVIEW OF SYSTEMS: Ten-point negative. PHYSICAL EXAMINATION: Vital Signs: He has been afebrile. Pulse has been 82, blood pressure 120/64, oxygen saturation 97% on 2 L. General: He is alert, responsive. Abdomen: Soft, nontender. It is included in the left lower quadrant. Right leg is edematous, 2+, asymmetric edema, relative to the left. His thigh is soft. I do not feel any compartment syndrome or swelling here. He does have some scrotal edema. Cardiovascular: Normal rate and regular rhythm. Pulmonary: He is on nasal cannula. Integument: Warm, dry, without jaundice. Peripheral Vascular: He has got palpable pedal pulses ASSESSMENT AND PLAN: I reviewed his imaging. He has some thigh hematoma here. I suspect it is related to his therapeutic anticoagulation. He has been transfused with an appropriate response. I would advise against any surgical intervention on these. His foot is, otherwise, well perfused. He does have a deep venous thrombosis noted on recent study which does complicate the matter. From a hematoma standpoint, I would recommend observation. He will need his coagulopathy reversed. He really has multiple issues going. I think an IVC filter may ultimately be indicated but, given his recent respiratory issues, would hold off on any of this right now. We will continue to follow along. cc: MD Eugenio Mays MD MTDD
[2016-11-12] MEDS ORDERED: CARDIZEM IV ONE (13:47)
--- NOTE | 2016-11-12 14:01 | CONSULTATION ---
DATE OF CONSULTATION: 11/12/2016 REFERRING PHYSICIAN: Dr. Teresa العراقي. REASON FOR REFERRAL: Profound anemia, heme-positive stools, history of colon cancer, history of colon polyps. FAMILY HISTORY: Colon cancer and colon polyps. Need for genetic testing. HISTORY OF PRESENT ILLNESS: Mr. Cosme Mueller is a very pleasant, 76-year- old man, who was initially admitted to [facility] on October 25 for acute angioedema. Over the course of his stay, he developed this severe anemia and was found to have a heme -positive stool. Dr. Teresa العراقي was consulted and plans to perform endoscopy, as well as a colonoscopy to further evaluate and rule out source of bleeding. Hematology/Oncology Service was placed on consult to provide further workup and treatment options. PAST MEDICAL HISTORY: Hypertension, colon cancer, colon polyps, angioedema, vascular dementia, atrial fibrillation, urinary bladder diverticulum, BPH, DVT. PAST SURGICAL HISTORY: 1. Partial colectomy. 2. Coronary artery stent placement. 3. Multiple skin cancer removals. FAMILY HISTORY: As mentioned above. SOCIAL HISTORY: Per the daughter he does have a history of drinking. ALLERGIES: 1. Lisinopril. 2. Losartan. 3. Meloxicam. MEDICATIONS: As per medication sheet. REVIEW OF SYSTEMS: As per HPI. Otherwise, a 12-point review of systems was negative. PHYSICAL EXAMINATION: General: The patient appears to be resting quietly and in no acute distress. He does arouse to name, but is very drowsy as he received a dose of Haldol this a.m. Vital Signs: Blood pressure 128/64, pulse 82, respirations 18, temperature 97.6 degrees Fahrenheit, O2 saturation 97% on 2 L nasal cannula. HEENT: Head normocephalic , atraumatic. Mucosa is pale and moist. Pupils reactive to light. Oropharynx is clear. Neck : Supple. No lymphadenopathy or thyromegaly. Cardiovascular: S1, S2. Regular rate and rhythm. No murmurs noted. Respiratory: Breath sounds clear to auscultation bilaterally. No rhonchi, rales or wheezing noted. Abdomen: Soft, nontender, nondistended. Positive for bowel sounds. Extremities: No evidence of edema, DVT or cyanosis. Skin: No rashes or lesions noted. Neurological: He is confused at times per the daughter. ASSESSMENT: 1. Profound anemia. 2. History of colon cancer with a family history of colon cancer. 3. Atrial fibrillation. PLAN: 1. Hemoglobin this a.m. is 9.0, hematocrit 27.1. He has been transfused a total of 6 units of packed red blood cells over the course of his hospital stay. Dr. العراقي plans to do an endoscopy and colonoscopy on Monday to rule out source of bleeding. We agree with continuing to transfuse the patient as needed. 2. Patient has a history of colon cancer with a partial colectomy. Dr. العراقي has obtained a CEA which was 3.4. She has requested genetic testing which we will discuss further with the patient and family as an outpatient. 3. Rhythm today is regular, rate is controlled. Dr. Ricci Antoine is following him closely and we agree with present management. Again thank you for this consult and allowing us to take part in the care of this patient. We will follow along with you and provide recommendations depending on the patient' s hospital course. Dictated by JOVANNI Santacruz for Sheri Vasquez MD cc: MD Eugenio Amador MD I have seen and examined the patient and agree with the above A/P Sheri MELÉNDEZ
--- NOTE | 2016-11-12 14:09 | PROGRESS NOTE ---
DATE: 11/12/2016 SUBJECTIVE: Mr. Mueller was admitted with developing acute angioedema. The cause of his angioedema was unclear, presumably from medications. During the hospitalization, the patient had resolution of angioedema. IV steroids and Benadryl were given. He had acute delirium 48 hours after hospitalization and new onset of atrial fibrillation with rapid ventricular response and some apneic episodes. Underlying diagnosis of obstructive sleep apnea. Noted to have recurrent urinary retention on 10/30/2016. More recently he got hypotensive, placed on Lovenox for atrial fibrillation with rapid ventricular response. He had some clinical improvement. He had small right flank hematoma, right lower extremity edema. Doppler ultrasound confirmed nonocclusive DVT in the right lower extremity. However, hematoma rapidly increased in size. Lovenox was discontinued on 11/09/2016. Over the next 48 hours, the hematoma continued to expand and extends from the nipple line of right chest to the right calf. He has increased abdominal distention, heme-positive stool, hemoglobin of 5, hematocrit of 18. Stools were guaiac positive. Dr. العراقي was consulted. He was found to have colon cancer per about 15 years ago, post resection of his colon cancer, he was found to have recurrent polyps. He underwent a cystogram on 11/11/2016. Massive urinary bladder diverticulum on the left side. Urinary bladder wall irregularity and thickening that is probably related to trabecular thickening as a result of prostate hypertrophy, although a component of cystitis could not completely be excluded. The patient is feeling better. He states he does not remember anything about yesterday, so he cannot compare, but he reports he feels better. His daughter seems to think he is feeling better. OBJECTIVE: Temperature is 98.5, pulse 79, respirations 17, blood pressure 160/83. Pupils are equal and round. Lungs are clear in all lung gutierrez. Cardiovascular: Regular rhythm and rate without murmur or S3. Abdomen is soft. Skin is warm and dry. Urine output was over 5 L. DIAGNOSTIC DATA: Blood sugar was 206, 126 and 110 per fingersticks. ASSESSMENT AND PLAN: 1. Acute blood loss anemia. Plan is to get an EGD and colonoscopy I believe on Monday. We gave him 2 units of packed red blood cells I believe yesterday. Follow hemoglobin and hematocrit. 2. Dr. Antoine is following history of atrial fibrillation with rapid ventricular rate. 3. He has Hemoccult positive stool. Ultrasound was performed and suggests nonocclusive thrombosis of the right lower extremity venous system. Unfortunately the patient cannot currently be treated with anticoagulant. 4. Renal insufficiency. Aware. 5. Paroxysmal atrial fibrillation. 6. Vascular dementia. Review of current labs shows hematocrit was 27, hemoglobin 9.0, and of course we will follow that. Chemistries unremarkable. On review of orders, I do not see any significant change. cc: MD Eugenio Pugh MD
[2016-11-12] MEDS ORDERED: PERICOLACE PO PRN (15:57)
--- NOTE | 2016-11-12 17:15 | PROGRESS NOTE ---
DATE: 11/12/2016 SUBJECTIVE: Patient currently resting in bed. His daughter is present at the bedside. The patient's hemoglobin and hematocrit are improved after blood transfusion early this morning. He was seen by Dr. Dick Mccormack and according to the recommendations the patient will be followed up conservatively and no surgical intervention needed at this time. There is no documentation of any fevers, rigors, or chills. No nausea, vomiting, vomiting, or vomiting blood. Denies any blood in the stools. OBJECTIVE: Vital signs: Temperature 97.9 degrees, pulse 130, respiratory rate 18, blood pressure 130/80, saturating 94% on 2 L nasal cannula. Body weight 200 pounds 11.1 ounces, BMI of 30 kg/m2. General Appearance: Moderately built, moderately nourished, lying in bed, in no acute distress. HEENT: Mild pallor. No icterus. Neck: Supple. Abdomen: Soft. No guarding. No rebound. There is a hematoma starting in the upper, middle back, extending all the way to the back of the thigh which is likely the cause of patient's anemia and need for blood transfusion. Extremities: No cyanosis, clubbing. Neurologic: He is alert, awake, and answers questions. LABS: His hemoglobin and hematocrit are 9 and 27.1, white count 9.1, platelet count of 164,000. Sodium 139, potassium 4.4, chloride 105, bicarb 25, anion gap 9, BUN of 20, creatinine 1.6, glucose of 112, calcium is 7.1, total bilirubin is 1.23, AST 19, ALT 36, alkaline phosphatase is 47, total protein 4.5, albumin 2.3. CEA of 3.4. INR 1.05. Urinalysis showing positive protein, positive blood. C1 esterase inhibitor 20. IMPRESSION AND PLAN: 1. Acute blood loss anemia. Likely secondary to combination of skin hematoma and possible GI source. There is no evidence of any overt GI bleeding. The patient is scheduled for EGD colonoscopy on Monday by Dr. العراقي. Will keep a watch on the patient's hematocrit and type and cross, transfuse to keep hematocrit more than 25%. We appreciate Dr. Dick Mccormack's recommendations. 2. Atrial fibrillation. Being followed by Dr. Antoine. 3. Positive Hemoccult. He is scheduled for EGD colonoscopy on Jun. 4. Nonocclusive thrombosis of the right lower extremity. He is only on aspirin at this moment. His anticoagulation is being withheld, which caused him to develop on the skin hematoma. 5. Renal insufficiency, aware. 6. Vascular dementia, aware. 7. Gastrointestinal prophylaxis with PPIs. 8. Bowel regimen. Will continue. 9. The above plan was discussed with the patient and family at bedside and all questions answered. cc: MD Eugenio Sauceda MD William D. Denney, MD Eston G. Norwood III, MD Peter Johnson, MD Dr. Hughes Heather Shah, MD R. Tyler Harney, MD
[2016-11-12] MEDS: MEVACOR PO SCH (20:38)
[2016-11-13] MEDS: NS 1,000 ML IV SCH ×3 (03:22→20:35)
[2016-11-13] MEDS: CARDIZEM 100 MG/NS 100 MG/100 ML IVPB IV SCH ×3 (03:22→20:34)
[2016-11-13] MEDS: HUMALOG SUBQ SCH ×3 (04:00→15:48)
[2016-11-13] MEDS: PROSCAR PO SCH (08:33)
[2016-11-13] MEDS: CORDARONE PO SCH (08:33)
[2016-11-13] MEDS: SODIUM CHLORIDE 0.9% INJ SCH ×2 (08:33→18:31)
[2016-11-13] MEDS: PROTONIX IV SCH ×2 (08:33→18:31)
[2016-11-13] MEDS: FLOMAX PO SCH (08:34)
[2016-11-13] MEDS: MAG-OX PO SCH ×2 (08:34→20:34)
[2016-11-13] MEDS: ARICEPT PO SCH (08:34)
[2016-11-13] MEDS ORDERED: CARDIZEM IV ONE (08:44)
[2016-11-13] MEDS ORDERED: CARDIZEM ONE (08:49)
[2016-11-13 09:01] LABS: MANUAL DIFF NEEDED? NO
[2016-11-13 09:11] LABS: BASO% 0.1 % (0.0-0.8); EOS# 0.04 X1000 (0.0-0.7); EOS% 0.5 % (0.0-10.0); HEMOGLOBIN 9.7 g/dL (14.0-18.0); IMM GRAN# 0.02 X1000 (0.0-0.04); IMM GRAN% 0.3 % (0.0-0.5); LYMPH# 0.61 X1000 (1.2-3.4); MCH 31.1 PG (27-31); MCHC 33.4 g/dL (33-37); MCV 92.9 FL (81-99); MONO# 0.74 X1000 (0.11-0.59); MONO% 9.7 % (1.7-9.3); MPV 9.7 FL (7.4-10.4); NEUT% 81.4 % (42.2-75.2); PLT 178 X1000 (130-400); RBC 3.12 XMIL (4.7-6.1)
--- NOTE | 2016-11-13 09:59 | PROGRESS NOTE ---
DATE: 11/13/2016 CHIEF COMPLAINT: Irregular heartbeat, angioedema, hematoma of right leg. SUBJECTIVE: Mr. Mueller is generally feeling better. He is not having any chest pain. He has some cough. He ate his breakfast. He has no further complaints at this time. OBJECTIVE: His blood pressure is 168/90, temperature 97.6, pulse 138. Telemetry indicates that he is going in and out of sinus tachycardia to atrial fibrillation with a rapid response. HEENT: Unremarkable. Chest: Diminished breath sounds diffusely. Heart sounds are irregularly irregular. No gallop or murmur noted. Abdomen is slightly distended, tympanitic. Extremities show the presence of extensive hematoma of right flank and right thigh. Neurologic: He has no focal deficits. He is cooperative, moves all 4 extremities. DIAGNOSTIC DATA: On blood work today, his hemoglobin has gone up to 9.7, hematocrit 29%, his white count is 7640. His sodium yesterday was 139. His BUN and creatinine were 28 and 1.6. IMPRESSION: 1. The patient is with paroxysmal atrial fibrillation. At this point in time, I am going to add oral Cardizem and IV digoxin to control his heart rate in addition to IV Cardizem and continuation of amiodarone. We will see how he does. 2. Bleeding probably into the subcutaneous tissue with significant anemia. This has improved with transfusions. 3. History of dementia. 4. Initial presentation to the hospital with a swollen tongue and suspected angioedema. RECOMMENDATIONS: At this point in time, we will adjust his medicines, and we will just continue to follow him in the ICU. cc: MD Eugenio Henson MD
--- NOTE | 2016-11-13 10:11 | PROGRESS NOTE ---
DATE: 11/13/2016 SUBJECTIVE: Mr. Mueller has no complaints. Feels good this morning. PHYSICAL EXAMINATION: Vital Signs: Temperature 97.6 degrees, pulse 138, respirations 18, blood pressure 168/90. HEENT: Pupils are equal and round. CVP less than 6 cm from the angle of Alvaro. Respiratory: Lungs are clear anterolateral. Cardiovascular Examination: Regular rhythm and rate without murmur or S3. Abdomen: Soft. Skin: Is warm and dry. Is and Os: Urine output is 4000 L. LAB: White count 7640, hematocrit 29, platelet count 178,000. Electrolytes reviewed from yesterday. Sodium 139, potassium 4.4, chloride 105, BUN 28, creatinine 1.6. Note, the creatinine has come down from 1.9. Originally, it was 2.2. ASSESSMENT AND PLAN: 1. Acute blood loss anemia secondary to a combination of skin hematoma and possibly a gastrointestinal source. No evidence of overt gastrointestinal bleeding. Patient scheduled for esophagogastroduodenoscopy and colonoscopy on Monday per Dr. العراقي. Continue to watch hematocrit and hemoglobin. Transfuse to keep hematocrit more than 25. Dr. Dick Mccormack's recommendations. Note that hematocrit was 29. 2. Atrial fibrillation. Followed by cardiology. Is on a Cardizem drip. I gave him a bolus yesterday of 10 mg. Give another bolus at this time. I think the rate is at 15 mg per hour now. 3. Nonocclusive thrombosis of the right lower extremity. He is only on aspirin at this moment. Holding other anticoagulation. 4. Renal insufficiency. Renal function appears to be improving. 5. Vascular dementia. Aware. He is very pleasant, awake, alert. 6. He is eating. Encourage oral intake. Try and increase his activity as well. 7. Review of his orders. He is on amiodarone 400 mg p.o. daily, digoxin 250 mcg IV q.6 hours loading dose and now he is on 125. He was loaded with the digoxin and he is now on 125 mcg IV daily, on a Cardizem drip and then getting p.o. Cardizem 30 mg p.o. q.6 hours. Aricept 10 mg daily, Proscar 5 mg daily. He takes magnesium oxide 800 mg p.o. b.i.d. He is on phenylephrine as needed, Protonix 40 mg IV q.12, Flomax 0.4 mg daily. cc: MD Eugenio Pugh MD
[2016-11-13] MEDS: LANOXIN IV SCH ×3 (10:48→20:33)
[2016-11-13] MEDS: CARDIZEM PO SCH ×3 (10:49→20:34)
[2016-11-13] MEDS ORDERED: GOLYTELY PO ONE (14:00)
--- NOTE | 2016-11-13 15:24 | PROGRESS NOTE ---
DATE: 11/13/2016 SUBJECTIVE: No events overnight. He is hemodynamically stable. Does complain of some tightness in his right leg, but no abdominal pain. OBJECTIVE: Vital signs: No fevers. Temperature is 97.6 degrees, pulse has been in the 70s overnight, blood pressure 160/90, oxygen saturation 93% on 3 L. Abdomen: Soft , nontender. extremities: Right leg is edematous, more so than the left. There is some bruising in his posterior thigh, scrotum. No evidence of compartment syndrome. His foot is well-perfused. LABORATORIES: White count 7, hematocrit is up to 29. Glucose 137. ASSESSMENT/PLAN: A 76-year-old male, with multiple medical issues, admitted for angioedema. He has got a deep vein thrombosis in his right leg, and developed a thigh hematoma secondary to therapeutic anticoagulation. There is also some concern of gastrointestinal bleed. Plan for endoscopy tomorrow. He does have a deep vein thrombosis. If he is unable to resume his anticoagulation for this, a filter may be indicated, but he has got a lot of medical issues going on right now, and we will need to make sure all these are stable prior to IVCF plus we will need to have this discussion with the family regarding their wishes as far as this goes, as this is not a trivial procedure and could be complicated with vena caval thrombus and so forth. I think Dr. العراقي plans to scope him tomorrow. Otherwise, we will defer medical management to the hospitalist, Cardiology Service and GI Service. We will continue follow along. cc: MD Eugenio Mays MD MTDD
--- NOTE | 2016-11-13 17:51 | PROGRESS NOTE ---
DATE: 11/13/2016 SUBJECTIVE: The patient is resting in bed. He is trying to drink GoLYTELY, but he is having a hard time keeping it down, he does not like the taste. So, we are suggesting an NG tube for help with the GoLYTELY. Patient otherwise denies any nausea. Otherwise denies any vomiting blood or passing blood in the stools. Denies any fevers, rigors, chills. OBJECTIVE: Vital signs are temperature 98 degrees, pulse rate of 81, respiratory rate 20, blood pressure 172/75, saturating 92% on 3 L nasal cannula. General Appearance: Moderately nourished, lying in bed, in no acute distress. HEENT: Pale conjunctiva. No icterus. Neck is supple. Abdomen: Hematoma stable as before. No guarding, no rebound. Extremities: No cyanosis or clubbing. Also, hematoma noted on the right thigh. Neurologic: He is alert, awake, and answers questions. LABS: Hemoglobin and hematocrit is 9.7 and 29, white count of 7.6, platelet count of 178,000. His blood glucose is 134. IMPRESSION AND PLAN: 1. Acute blood loss anemia secondary to combination of skin hematoma and possible gastrointestinal source. No evidence of any overt gastrointestinal bleeding. The patient is scheduled for EGD and colonoscopy tomorrow with Dr. العراقي. Will place orders for nasogastric tube insertion and confirmation of nasogastric tube position. To start GoLYTELY if needed. The patient will be nothing by mouth past midnight. 2. Anemia. Continue to watch and transfuse as needed. 3. Atrial fibrillation. He is on Cardizem drip per the Cardiology. 4. Nonocclusive thrombosis of the right lower extremity. He is only on aspirin at this time. His other anticoagulants have been withheld. 5. Renal insufficiency is improving. 6. Gastrointestinal prophylaxis with proton pump inhibitors. 7. Further recommendations pending the hospital course. I discussed plan with the patient and his son and RN at bedside. cc: MD Eugenio Sauceda MD Jeanette Keith, MD Dr. Schmidt
--- NOTE | 2016-11-13 18:30 | Diag Imaging Result Doc PS360 ---
EXAM: CHEST/ABD TUBE PLACEMENT INDICATION: NG tube placement TECHNIQUE: One view COMPARISON: 10/28/2016 FINDINGS: The newly placed NG tube is identified. The tip projects a few centimeters below the diaphragm and is assumed to be in the lumen of the stomach in the expected position. There are nonspecific bowel gas patterns. Limited views of the lung bases are grossly unremarkable. IMPRESSION: Newly placed NG tube in the expected position as described. Electronically signed by Vamsi Mclain 11/13/2016 6:28 PM
[2016-11-13 19:50] LABS: ALLEN TEST YES; BE 1.9 mmoll (-3.0-3.0); BLOOD TYPE ARTERIAL; DRAW SITE R RADIAL; METHB 0.7 % (0.0-1.5); O2(CT) 13.6 mL/dL (15.0-23.0); PCO2(98.6) 41 mmHg (35-45); PO2(98.6) 129 mmHg (60-100); SAMPLE BLOOD; SAO2 99.5 % (95.0-100.0); THB 9.8 g/dL (11.5-17.4); pH(98.6) 7.42 (7.35-7.45)
[2016-11-13 19:51] LABS: MODALITY NRB
[2016-11-13] MEDS: MUCINEX PO SCH (20:32)
[2016-11-13] MEDS: MEVACOR PO SCH (21:30)
[2016-11-14] MEDS: HUMALOG SUBQ SCH ×5 (02:47→21:31)
[2016-11-14] MEDS: CARDIZEM PO SCH ×2 (02:48→08:14)
[2016-11-14] MEDS: HALDOL IV PRN (04:56)
[2016-11-14] MEDS: PROTONIX IV SCH ×2 (06:35→18:00)
[2016-11-14] MEDS: CARDIZEM 100 MG/NS 100 MG/100 ML IVPB IV SCH ×2 (06:35→11:53)
[2016-11-14] MEDS: MUCINEX PO SCH ×2 (06:35→18:01)
--- NOTE | 2016-11-14 06:47 | EKG Report ---
Test Performed on : 11/11/2016 1:06:47 PM Test Reason : No Order in [place] Blood Pressure : / mmHG Vent. Rate : 138 BPM Atrial Rate : 119 BPM P-R Int : 000 ms QRS Dur : 100 ms QT Int : 294 ms P-R-T Axes : 000 -03 134 degrees QTc Int : 445 ms Atrial fibrillation. with rapid ventricular response. ST \T\ T wave abnormality, consider anterolateral ischemia Abnormal ECG When compared with ECG of 08-NOV-2016 10:57, Atrial fibrillation. has replaced Sinus rhythm. Vent. rate has increased BY [address] now depressed in Anterior leads T wave inversion no longer evident in Inferior leads Confirmed by Marquis Escobar MD ([id number]) on 11/14/2016 7:57:09 AM
[2016-11-14] MEDS: PROSCAR PO SCH (08:14)
[2016-11-14] MEDS: ARICEPT PO SCH (08:14)
[2016-11-14] MEDS: CORDARONE PO SCH (08:14)
[2016-11-14] MEDS: MAG-OX PO SCH ×2 (08:15→20:13)
[2016-11-14] MEDS: FLOMAX PO SCH (08:15)
[2016-11-14] MEDS: LANOXIN IV SCH (08:15)
[2016-11-14] MEDS ORDERED: LASIX IV ONE (08:21)
--- NOTE | 2016-11-14 08:48 | Diag Imaging Result Doc PS360 ---
CHEST-PORTABLE - 11/14/2016 INDICATION: dyspnea TECHNIQUE: COMPARISON: 11/13/2016 FINDINGS: There is nonspecific infiltrate or atelectasis at the right lower lobe with obscuration of the right hemidiaphragm. Stable cardiomegaly. Stable unfolding of the thoracic aorta. No other infiltrates. IMPRESSION: Nonspecific right lower lobe infiltrate or atelectasis. Electronically signed by Misael Neal 11/14/2016 8:45 AM
--- NOTE | 2016-11-14 09:05 | PROGRESS NOTE ---
DATE: 11/14/2016 SUBJECTIVE: Mr. Mueller has a history of paroxysmal atrial fibrillation. He went back into atrial fibrillation last night with a heart rate in the 120s and 140s. He remains in atrial fibrillation. His heart rate was 124 this morning. He is on a Cardizem drip and oral amiodarone. He denies any chest pain, palpitations, or anginal equivalents. He is with complaint of increasing shortness of breath. They have increased his oxygen to 80%. His lungs sounded wet this morning. Blood counts have remained stable. His hemoglobin and hematocrit were 9.7 and 29/ he has not had any further overt bleeding. His stools were heme positive. He does have a nonocclusive deep venous thrombosis of the right lower extremity. OBJECTIVE: Vital signs: Temperature 97.2 degrees, pulse 124 and irregular, respiratory rate 25, BP 164/85. CV: Irregularly irregular. Lungs: Crackles in the bases bilaterally. Abdomen: Soft, nontender, with active bowel sounds. ASSESSMENT AND PLAN: 1. Vascular dementia with delirium. Previously when he had acute delirium in the Intensive Care Unit, he really did not respond well to either Ativan or Haldol. We will try morphine sulfate 2 mg intravenously q.2 hours as needed for agitation. 2. Acute blood loss anemia. His blood counts are stable. I will recheck a hemoglobin and hematocrit this morning. We will continue IV proton-pump inhibitors. We will delay the esophagogastroduodenoscopy and colonoscopy until he is more stable. 3. Dyspnea. He sounded wet on examination. I am going to check a portable chest x-ray, and give him Lasix 40 mg intravenously x1 dose. 4. Paroxysmal atrial fibrillation. He remains in atrial fibrillation. We will titrate the Cardizem drip to slow his heart rate down, and we will continue intravenous amiodarone. He continues to go in and out of atrial fibrillation in spite of antiarrhythmics and rate controlling agents. I believe that he would potentially benefit from cardioversion when he is more stable. 5. Deep venous thrombosis of the right lower extremity. The clot is nonocclusive. Because of the recent gastrointestinal bleed, we will continue to hold Lovenox. He may ultimately need a filter. cc: Eugenio Bernal MD
[2016-11-14 09:31] LABS: BASO% 0.1 % (0.0-0.8); HEMATOCRIT 31.5 % (42.0-52.0); HEMOGLOBIN 10.5 g/dL (14.0-18.0); IMM GRAN# 0.02 X1000 (0.0-0.04); IMM GRAN% 0.2 % (0.0-0.5); LYMPH# 0.29 X1000 (1.2-3.4); LYMPH% 3.4 % (20.5-51.1); MANUAL DIFF NEEDED? YES; MCH 30.8 PG (27-31); MCHC 33.3 g/dL (33-37); MCV 92.4 FL (81-99); MONO# 0.61 X1000 (0.11-0.59); MONO% 7.1 % (1.7-9.3); MPV 9.4 FL (7.4-10.4); NEUT% 89.2 % (42.2-75.2); PLT 205 X1000 (130-400); RBC 3.41 XMIL (4.7-6.1)
[2016-11-14] MEDS: MORPHINE IV PRN ×2 (09:34→13:33)
[2016-11-14 09:41] LABS: BANDS 7 % (0-1); LYMPHS 1 % (21-51); MONO 2 % (1-9)
[2016-11-14 09:49] LABS: ALBUMIN 2.6 g/dL (3.5-5.0); CALCIUM 7.4 mg/dL (8.8-10.2); POTASSIUM 3.9 mmol/L (3.5-5.1); TOTAL BILIRUBIN 2.92 mg/dL (0.20-1.00); TOTAL PROTEIN 5.2 g/dL (6.3-8.3)
[2016-11-14] MEDS: GEODON IM PRN ×2 (11:07→20:13)
[2016-11-14] MEDS: STERILE WATER INJ. INJ PRN ×2 (11:08→20:13)
--- NOTE | 2016-11-14 13:00 | PROGRESS NOTE ---
DATE: 11/14/2016 SUBJECTIVE: Mr. Mueller is confused today. He is not responding very well to questions. He is awake. He is in 4 point restraints. PHYSICAL EXAMINATION: Vital Signs: He is afebrile. His heart rate presently is in the 120s or so. He has had rates as high as the 140s in the last 24 hours. Blood pressure 151/108. General: No acute distress. Cardiovascular: He is in a irregularly irregular tachycardic rhythm. He has no murmurs, no lower extremity edema. Chest Exam: Coarse breath sounds bilaterally throughout all lung gutierrez. No increased work of breathing. Abdomen: Soft, nontender. PERTINENT DATA: White count is 8.6, his hematocrit is 31.5, platelet count 205,000. His sodium is 138, potassium 3.9, BUN 17, creatinine 1.2. ASSESSMENT: 1. Atrial fibrillation. 2. Acute blood loss anemia. PLAN: I agree with diuresis as already administered. I believe the patient is has an exceptionally high infection risk presently with his coexisting issues going on. We would like the GI doctors to be able to fully evaluate the patient from the standpoint of bleeding. I will discuss the case with the smalltalk developer. They may consider eventually bringing the patient over for an AV node ablation with subsequent permanent pacemaker implantation but will we will request their expertise. We will start him on metoprolol 25 p.o. q.6 hours today. cc: MD Eugenio Echeverria MD
[2016-11-14] MEDS: LOPRESSOR PO SCH ×2 (13:33→20:13)
--- NOTE | 2016-11-14 16:56 | PROGRESS NOTE ---
DATE: 11/14/2016 SUBJECTIVE: Worsening mental status and respiratory status overnight. He is on hospital nasal cannula. He did have some tachycardia. OBJECTIVE: Vital signs: Temperature is 97.2 degrees, pulse is in the 100s, blood pressure 164/85, oxygen saturation 100% but he is on 80% FiO2 via the hospitalist cannula. General: He is kind of moaning and not really responsive this morning. Abdomen: Soft, nontender. Extremities: Right thigh remains soft. There is some bruising here but his foot is well perfused. Some edema, right greater than left. LABS: White count is 8, hematocrit has been stable at 31; it is actually climbing. Creatinine is 1.2. Bilirubin is up slightly at 2.92. AST and ALT are mildly elevated. ASSESSMENT AND PLAN: This is a 76-year-old male with multiple acute medical issues. He does have a deep vein thrombosis. With his anticoagulation he developed a right thigh hematoma and some acute anemia from this, but this is resolving and from a hematocrit standpoint he has been stable. From a mental status and pulmonary standpoint, he is much worse this morning. I think he is too sick to undergo vena cava filter placement at this point. I think it is unlikely to contribute to his overall improvement in clinical status and if anything would put him at more risk as I do not think he can lie flat currently and I think if he were to be intubated for the procedure he would be unable to be extubated. We will continue to monitor. As his hematocrit has remained stable, it may be reasonable to initiate low-dose anticoagulation likely with a non-bolus heparin protocol so that we can stop it if he were to shows signs of bleeding. We will continue to follow along. cc: MD Eugenio Mays MD
[2016-11-14] MEDS: ZOSYN 2.25 GM in NS 50 ML IV SCH ×2 (17:09→22:27)
[2016-11-14] MEDS: SODIUM CHLORIDE 0.9% INJ SCH (18:00)
--- NOTE | 2016-11-14 21:41 | PROGRESS NOTE ---
DATE: 11/14/2016 SUBJECTIVE: The patient has had a significant clinical decline over the weekend. He has had respiratory issues, altered mental status and is now in 4-point restraints. His cardiac rhythm has deteriorated to atrial fibrillation with rapid ventricular response requiring IV therapy. In light of his clinical instability, we are unable to perform endoscopic evaluation at this time. We will continue to follow in the distance. Once he has stabilized, we will place patient on the schedule for endoscopic therapy. ` cc: MD Eugenio Salgado MD Peter Johnson, MD Heather Shah, MD
[2016-11-15] MEDS: LOPRESSOR PO SCH ×4 (01:56→21:57)
[2016-11-15] MEDS: CARDIZEM 100 MG/NS 100 MG/100 ML IVPB IV SCH ×2 (01:56→21:58)
[2016-11-15] MEDS: HUMALOG SUBQ SCH ×4 (03:20→21:57)
[2016-11-15] MEDS: MORPHINE IV PRN ×2 (04:05→22:05)
[2016-11-15] MEDS: ZOSYN 2.25 GM in NS 50 ML IV SCH ×4 (04:22→22:03)
[2016-11-15] MEDS: NS 1,000 ML IV SCH (04:26)
[2016-11-15] MEDS: SODIUM CHLORIDE 0.9% INJ SCH ×2 (06:03→18:02)
[2016-11-15] MEDS: PROTONIX IV SCH ×2 (06:03→18:02)
[2016-11-15] MEDS: MUCINEX PO SCH ×2 (06:03→18:02)
[2016-11-15] MEDS: CORDARONE PO SCH (07:59)
[2016-11-15] MEDS: MAG-OX PO SCH ×2 (07:59→21:57)
[2016-11-15] MEDS: PROSCAR PO SCH (07:59)
[2016-11-15] MEDS: FLOMAX PO SCH (07:59)
[2016-11-15] MEDS: LANOXIN IV SCH (07:59)
[2016-11-15] MEDS: ARICEPT PO SCH (07:59)
--- NOTE | 2016-11-15 09:05 | Diag Imaging Result Doc PS360 ---
EXAM: CHEST-PORTABLE HISTORY: cough TECHNIQUE: Portable upright AP COMPARISON: 11/14/2016 FINDINGS: There are increased interstitial markings in the right base. Heart is mildly enlarged. The vessels are not distended. The left lung is well expanded and clear. Questionable tiny right pleural effusion. A nasogastric tube overlies the esophagus and stomach. IMPRESSION: There is right basilar atelectasis versus a tiny infiltrate. Electronically signed by Raimundo Beard 11/15/2016 9:03 AM
[2016-11-15 09:09] LABS: MANUAL DIFF NEEDED? NO
[2016-11-15 09:11] LABS: BASO% 0.1 % (0.0-0.8); HEMATOCRIT 31.5 % (42.0-52.0); HEMOGLOBIN 10.3 g/dL (14.0-18.0); LYMPH# 0.65 X1000 (1.2-3.4); LYMPH% 8.6 % (20.5-51.1); MCH 30.7 PG (27-31); MCHC 32.7 g/dL (33-37); MCV 93.8 FL (81-99); MONO# 0.84 X1000 (0.11-0.59); MONO% 11.1 % (1.7-9.3); MPV 9.5 FL (7.4-10.4); NEUT% 80.2 % (42.2-75.2); PLT 241 X1000 (130-400); RBC 3.36 XMIL (4.7-6.1)
[2016-11-15 09:16] LABS: URINE CULTURE NEEDED? NO; URINE MICRO REVIEW NEEDED? NO; URINE SOURCE CATH
[2016-11-15 09:20] LABS: CALCIUM 7.6 mg/dL (8.8-10.2); POTASSIUM 4.1 mmol/L (3.5-5.1)
[2016-11-15 09:21] LABS: BILIRUBIN URINE NEGATIVE (NEGATIVE); BLOOD URINE SMALL (NEGATIVE); COLOR YELLOW; GLUCOSE URINE NEGATIVE (NEGATIVE); LEUKOCYTES URINE NEGATIVE (NEGATIVE); NITRITE URINE NEGATIVE (NEGATIVE); PROTEIN URINE 70 mg/dL (NEGATIVE); SP GRAVITY URINE 1.017; TURBIDITY URINE CLEAR (CLEAR); UR EPITHELIAL CELLS <10 /HPF (<10); URINE BACTERIA NEGATIVE /HPF; URINE WBC <10 /HPF (<10); UROBILINOGEN URINE NORMAL (NORMAL)
--- NOTE | 2016-11-15 09:52 | PROGRESS NOTE ---
DATE: 11/15/2016 The patient remains confused. His atrial fibrillation persists. Clinically, he remains unstable for endoscopic intervention; however, there have been no further episodes of bleeding. Therefore, I will continue conservative management until he is able to undergo endoscopic intervention. cc: MD Eugenio Salgado MD
--- NOTE | 2016-11-15 10:44 | PROGRESS NOTE ---
DATE: 11/15/2016 SUBJECTIVE: Mr. Mueller has a history of vascular dementia. He did have some confusion and agitation last night. They gave him a one time dose of Geodon, and he slept peacefully the rest of the night. When I saw him this morning, he was sitting up in the hospital bed and taking his pills with applesauce. He knew that he was in [place]. He knew his name. He could tell me the name of his daughter. He has a history of paroxysmal atrial fibrillation. He has continued to go in and out of atrial fibrillation. His heart rate has been well controlled. Heart rate has been in the range of 70-90 on p.o. metoprolol. They have been able to wean down the Cardizem drip to 5 mg/hour. His blood pressure has remained stable. His blood counts have remained stable. His hemoglobin and hematocrit were 10.3 and 31.5. There been no further episodes of bleeding. Nursing staff reports that he has had a persistent nonproductive cough. His chest x-ray today showed a right lower lobe atelectasis versus infiltrate. He has not had any fever. Certainly, he is at increased risk for aspiration, and I will continue the Zosyn and follow chest x-rays. OBJECTIVE: He is maintaining O2 saturations of 92%-100% on O2 of 80%. Temperature 97.1 degrees, pulse 68, respirations 14. BP 105/50. CV: Irregularly irregular. Lungs: Crackles in the right base with occasional end-expiratory wheezing. Abdomen soft, nontender, with active bowel sounds. Extremities: Trace edema. ASSESSMENT AND PLAN: 1. Paroxysmal atrial fibrillation. We will continue oral amiodarone, metoprolol, and attempt to wean him off the Cardizem. Because of the recent gastrointestinal bleed, anticoagulant such as Lovenox are still contraindicated. 2. Acute blood loss anemia. Blood counts are stable. We will continue IV pantoprazole and will monitor his blood counts daily. Once he has been stabilized, we will proceed with an esophagogastroduodenoscopy and colonoscopy. 3. Aspiration pneumonitis. He has atelectasis in the right base. I am going to continue IV Zosyn. We will also try to wean him down off the oxygen as long as his O2 sats remained greater than 90. cc: Eugenio Bernal MD
--- NOTE | 2016-11-15 13:58 | PROGRESS NOTE ---
DATE: 11/15/2016 SUBJECTIVE: Mr. Mueller is very sleepy today. He does arouse with physical stimuli. He is not answering questions presently. He localizes to the examiner. OBJECTIVE: Afebrile. Heart rate is in the 70s. He looks like he is in atrial fibrillation by telemetry. Blood pressure 100/64. His I's and O's are -2. 2 L for the hospitalization and he has been -6 L over the last 24-48 hours. Generally, he is in no acute distress. Cardiovascular: He is in an irregularly irregular rhythm. He has no murmurs. He has no S3. He has no lower extremity edema. His chest exam has some coarse breath sounds with poor inspiratory effort. Abdomen is soft, nontender. PERTINENT DATA: His white count is 7.6, hematocrit 31.5, platelet count 241, 000. Sodium 142, potassium 4.1. BUN 26, creatinine is 1.4 which is up from 1.2 yesterday. ASSESSMENT: 1. Atrial fibrillation. PLAN: Patient seems better controlled on beta-blockers right now. He is on a low dose of diltiazem. I will increase his metoprolol to 50 q. 8 hours and hopefully we can get him weaned off the diltiazem. In addition, I have placed him on digoxin 125 mcg orally as opposed to IV. If we can adequately control his rate, we may consider stopping the amiodarone as it does not seem to be doing an infective job of controlling his rhythm right now. He is not an anticoagulation candidate secondary to his recent bleeding issues. cc: MD Eugenio Echeverria MD MTDD
--- NOTE | 2016-11-15 17:37 | PROGRESS NOTE ---
DATE: 11/15/2016 SUBJECTIVE: Mr. Mueller is lying in the hospital bed and he is not responsive. He is in four-point restraints. His son is at bedside. OBJECTIVE: Vital Signs: Temperature 97.1, heart rate 71, respirations 14, blood pressure 91/46, O2 saturation 96% on nasal cannula. CV: S1, S2 heard. Irregularly irregular rhythm, but rate controlled. Respiratory: Coarse breath sounds bilaterally. Abdomen: Soft, with positive bowel sounds. Extremities: Patient has no edema noted. LABORATORY: White blood cells 7.56, hemoglobin 10.3, hematocrit 31.5, platelet count 241,000. Sodium 142, potassium 4.1, chloride 102, CO2 30, BUN 26, creatinine 1.4, glucose 114. ASSESSMENT AND PLAN: 1. Profound anemia secondary to gastrointestinal bleed. Patient's hemoglobin seems to have stabilized at 10.3 today. He has recently had a decline in status and is not currently a candidate for esophagogastroduodenoscopy or colonoscopy. Dr. العراقي continues to follow the patient. Will continue to follow his hemoglobin closely. Continue conservative management at this time. 2. Atrial fibrillation, currently rate controlled. Continue per cardiology. He is currently on beta blockers. 3. Deep vein thrombosis. The patient is not currently the ideal candidate for anticoagulation given that he has a right thigh hematoma as well as acute blood loss. This is believed to be a gastrointestinal source. Plan is to put in a filter, but this has not been done as of yet due to the patient's worsening mental and respiratory status. I do recommend that if anticoagulation cannot be done at this time, that the patient does proceed with a filter placement. The patient will continue to be evaluated by surgery. 4. Aspiration pneumonitis. He will continue on his current IV antibiotics as well as O2 support. Dictated by STEVIE Sparks for Sheri Vasquez MD cc: MD Eugenio Amador MD I have seen and examined the patient and agree with the above note. Sheri MELÉNDEZ
[2016-11-16] MEDS: HUMALOG SUBQ SCH ×4 (05:35→21:11)
[2016-11-16] MEDS: ZOSYN 2.25 GM in NS 50 ML IV SCH ×3 (05:35→16:19)
[2016-11-16] MEDS: LOPRESSOR PO SCH ×3 (05:36→21:03)
[2016-11-16] MEDS: PROTONIX IV SCH ×2 (06:35→18:01)
[2016-11-16] MEDS: MUCINEX PO SCH ×2 (06:35→18:01)
[2016-11-16] MEDS: NS 1,000 ML IV SCH (06:36)
[2016-11-16] MEDS: CORDARONE PO SCH (08:36)
[2016-11-16] MEDS: FLOMAX PO SCH (08:36)
[2016-11-16] MEDS: ARICEPT PO SCH (08:36)
[2016-11-16] MEDS: PROSCAR PO SCH (08:36)
[2016-11-16] MEDS: MAG-OX PO SCH ×2 (08:36→21:00)
[2016-11-16] MEDS: LANOXIN PO SCH (08:36)
[2016-11-16 09:06] LABS: HEMATOCRIT 32.8 % (42.0-52.0); HEMOGLOBIN 10.7 g/dL (14.0-18.0)
--- NOTE | 2016-11-16 09:26 | PROGRESS NOTE ---
DATE: 11/16/2016 Mr. Holley remains in atrial fibrillation. His heart rate has ranged from 67-80 on metoprolol alone. They were able to discontinue the Cardizem drip. He is breathing more comfortably. They were able to reduce him to a 40% Ventimask and he is maintaining O2 saturations of 99-100%. Chest x-ray from yesterday showed a persistent atelectasis versus infiltrate in the right lower lobe. He continues to have episodes of coughing with taking pills. He had a more restful night last night. This morning he was sitting up in the bed. He was easily arousable and was oriented to name and place.Vital signs: Temperature 97.1 degrees, pulse BP 133/60. Respiratory rate 16. CV: Irregularly irregular. Lungs: Crackles in the right base. Abdomen: Soft, nontender, with active bowel sounds. Extremities: There is 1+ pitting edema in the right lower extremity. His right foot feels cold. He does have pulses by Doppler. ASSESSMENT AND PLAN: 1. Aspiration pneumonitis. We will continue to wean down on the oxygen as long as his O2 sats remain above 90%. We will continue Zosyn. I am going to recheck a portable chest x-ray this morning. 2. Paroxysmal atrial fibrillation. He remains in sinus rhythm. His heart rate is well controlled on metoprolol alone as well as amiodarone. Given the recent GI bleed we believe that it would be too dangerous to maintain him on blood thinners at this time. 3. Acute blood loss anemia. We will continue pantoprazole 40 mg IV q.12 hours and transfuse to maintain hematocrit greater than 25 given his history of underlying heart disease. Once he is stable we will proceed with an EGD and colonoscopy. 4. Nonocclusive deep venous thrombosis of the right lower extremity. Given the recent GI bleed he is not a candidate for anticoagulation. I still do not believe that he is stable enough for placement of a filter at this time. 5. Claudication. His right foot was cool to touch. Pulses were present by Doppler. We will check noninvasive arterial studies of the right lower extremity. cc: Eugenio Bernal MD
[2016-11-16 09:43] LABS: POTASSIUM 3.8 mmol/L (3.5-5.1)
--- NOTE | 2016-11-16 10:55 | PROGRESS NOTE ---
DATE: 11/16/2016 SUBJECTIVE: Mr. Mueller seems more alert today. He is able answer commands. His is present and reports that he is doing better. PHYSICAL EXAMINATION: Vital Signs: He is afebrile. His heart rate seems to be much better controlled in the last 48 hours. Frequently, his heart rates are in the 60s to 80s. Blood pressure is 118/70. General: He is in no acute distress. Cardiovascular: He sounds to be in an irregularly irregular rhythm. He currently is in atrial fibrillation, rate controlled at 70 beats per minute. He has no lower extremity edema. Chest Examination: Clear bilaterally. He has no increased work of breathing. Abdomen: Soft and nontender. PERTINENT DATA: His laboratory data shows a hematocrit of 32.8 today. Chemistry data shows a BUN of 35 and a creatinine of 1.5. ASSESSMENT: 1. Atrial fibrillation. 2. Recent episode of bleeding, probably combined secondary to hematoma on the right hip as well as a possible gastrointestinal bleed. PLAN: I am okay from a cardiovascular standpoint for the patient have his GI procedures. His atrial fibrillation seems to be controlled rate mora. I will not make any adjustments in his medications. I will plan on checking a digoxin level in the morning. He continues to be negative from a fluid balance standpoint and he has not received any diuretics in the last couple of days. I do not have any further recommendations presently. cc: MD Eugenio Echeverria MD
--- NOTE | 2016-11-16 11:18 | Diag Imaging Result Doc PS360 ---
CHEST-PORTABLE - 11/16/2016 INDICATION: aspiration pneumonia TECHNIQUE: COMPARISON: 11/15/2016 FINDINGS: There is slight worsening in ill-defined alveolar infiltrate at the right lung base. Stable cardiomegaly. No pneumothorax or pleural effusion. The left lung remains clear. Stable tube over the thoracic inlet which is very difficult to see on this exam. IMPRESSION: Slight worsening infiltrate at the right lung base. Electronically signed by Misael Neal 11/16/2016 11:16 AM
--- NOTE | 2016-11-16 13:21 | Diag Imaging Result Doc PS360 ---
CHEST/ABD TUBE PLACEMENT - 11/16/2016 1305 INDICATION: NG tube placement TECHNIQUE: COMPARISON: 1100 FINDINGS: There is a nasogastric tube in good position with the tip in the stomach. Deleon catheter in the pelvis. No bowel obstruction or free air. IMPRESSION: No acute disease or complication. Electronically signed by Misael Neal 11/16/2016 1:18 PM
[2016-11-16] MEDS: MORPHINE IV PRN ×2 (17:48)
[2016-11-16] MEDS ORDERED: GOLYTELY PO ONE (18:00)
--- NOTE | 2016-11-16 18:34 | PROGRESS NOTE ---
DATE: 11/16/2016 SUBJECTIVE: Mr. Mueller remains in atrial fibrillation. His heart rate has ranged from 75-79. He denies any chest pain, palpitations, or anginal equivalents. Blood pressure has been stable. His blood pressure was 134/89 when I saw him this evening. He is maintaining O2 saturations of 99 to 100% on FiO2 of 40%. His blood counts remained stable. Hemoglobin is 10.7, hematocrit 32.8. OBJECTIVE: Vital signs: Blood pressure 133/89, respiratory rate 15, pulse 78 and regular. CV: Irregularly irregular. Lungs: Crackles in the right base. Abdomen: Soft, nontender, with active bowel sounds. ASSESSMENT AND PLAN: 1. Aspiration pneumonitis. We will continue Zosyn 2.25 g IV q.6 hours and will continue to wean down on the supplemental O2. 2. Acute blood loss anemia. Blood counts have remained stable. He has not had any further obvious bleeding. Dr. Antoine and I both feel that he is stable to proceed with an EGD and colonoscopy tomorrow. cc: Eugenio Bernal MD
--- NOTE | 2016-11-16 18:37 | PROGRESS NOTE ---
DATE: 11/16/2016 SUBJECTIVE: Remains with altered mental status overnight. He is on high-flow nasal cannula. Not much change, clinically. Hemodynamically, he has been stable. PHYSICAL EXAMINATION: Vital Signs: Temperature is 97.1 degrees, pulse has been in the 60s to 70s, blood pressure 118/70, oxygen saturation 99% on 45% nasal cannula. General: He is arousable, but, for the most part, incoherent. Cardiovascular: Normal rate, regular rhythm. Abdomen: Soft, nontender. extremities: His right thigh has stable ecchymosis. It is soft. His distal foot is well-perfused. No swelling of his left leg pain. DIAGNOSTICS: Hematocrit has been stable at 32, had been 31 for the 2 days prior. Creatinine is up to 1.5, glucose 120. ASSESSMENT/PLAN: A 76-year-old male, with multiple medical issues, is critically ill in the intensive care unit. He has got a deep vein thrombosis, atrial fibrillation, and has developed a spontaneous intramuscular hematoma in his right thigh. Overall, his hematocrits have been stable after holding his anticoagulation. His daughters is here with him today. We did discuss the risk of pulmonary embolus with a DVT, not on anticoagulation, and we discussed possibility of him needing IVC filter. She does not want to pursue this at this point, and I agree that, given his other medical issues currently, this would be high risk, although relatively straight forward procedure. He would be at risk of developing an IVC occlusion and thrombus related to this, and he could have propagation worsening of DVT, if he is not able to undergo anticoagulation. Will continue to monitor. If his hematocrits remained stable, it would not be unreasonable to try low- dose heparin, at least prophylactic dose, going forward to hopefully prevent any worsening of his DVT, but will hold off on IVC filter placement at this point, unless he changes clinically. cc: MD Eugenio Mays MD
--- NOTE | 2016-11-16 20:32 | PROGRESS NOTE ---
DATE: 11/16/2016 SUBJECTIVE: The patient has made a significant improvement over the last 24 hours. He has been cleared by his primary care physician as well as Cardiology (Dr. Ricci Antoine) to undergo endoscopic evaluation for his GI bleeding. Therefore, the patient will undergo an EGD and colonoscopy in the morning. Consent has previously been discussed with the patient and his family. There were no additional questions today. cc: MD Eugenio Salgado MD Peter Johnson, MD
[2016-11-17] MEDS: MORPHINE IV PRN ×3 (00:11→10:29)
[2016-11-17] MEDS: HUMALOG SUBQ SCH ×4 (04:23→23:00)
[2016-11-17] MEDS: ZOSYN 2.25 GM in NS 50 ML IV SCH ×6 (04:24→23:37)
[2016-11-17] MEDS: LOPRESSOR PO SCH ×3 (05:42→22:15)
--- NOTE | 2016-11-17 05:59 | Diag Imaging Result Doc PS360 ---
EXAM: CHEST/ABD TUBE PLACEMENT HISTORY: NGT placement TECHNIQUE: Chest abdomen COMPARISON: 11/16/2016 FINDINGS: The nasogastric tube has been advanced and enters the stomach approximately 10 cm from the nasogastric junction. The lower lungs are clear. No free air beneath the diaphragm. IMPRESSION: Nasogastric tube enters the stomach. Electronically signed by Raimundo Beard 11/17/2016 5:57 AM
[2016-11-17] MEDS: PROTONIX IV SCH ×2 (06:20→18:15)
[2016-11-17] MEDS: MUCINEX PO SCH ×2 (06:20→18:37)
[2016-11-17] MEDS: ARICEPT PO SCH (08:38)
[2016-11-17] MEDS: FLOMAX PO SCH (08:38)
[2016-11-17] MEDS: LANOXIN PO SCH (08:38)
[2016-11-17] MEDS: CORDARONE PO SCH (08:38)
[2016-11-17] MEDS: PROSCAR PO SCH (08:38)
--- NOTE | 2016-11-17 08:58 | PROGRESS NOTE ---
DATE: 11/17/2016 SUBJECTIVE: Mr. Mueller has a history of paroxysmal atrial fibrillation. He continues to go in and out of atrial fibrillation. He was in atrial fibrillation this morning. His heart rate has been well controlled ranging from 75-92 on Lopressor 50 mg q.8 hours. He is off the Cardizem drip. He reports that he is breathing more comfortably. He is maintaining O2 saturations of 100% on 5 L of O2 per nasal cannula. He still has an intermittent cough. Previous chest x-rays have demonstrated a right lower lobe infiltrate. He has had a previous GI bleed. Blood counts remained stable. He is scheduled for an EGD and colonoscopy today. OBJECTIVE: Vital signs: Temperature 97.7 degrees, pulse 86, respirations 15, BP 153/94. CV: Irregularly, irregular. Lungs: Crackles in the right base. Abdomen: Soft, nontender, with active bowel sounds. ASSESSMENT AND PLAN: 1. Acute respiratory failure with aspiration pneumonia. We will continue to titrate down on the supplemental O2 as long as his O2 sats remained above 90%. We will continue IV Zosyn. I will recheck a portable chest x-ray in the morning. 2. Paroxysmal atrial fibrillation. His heart rate is well controlled on Lopressor 50 mg q.8 hours. We will continue amiodarone. 3. Acute blood loss anemia. Blood counts remained stable. He is scheduled for an esophagogastroduodenoscopy and colonoscopy today. cc: Eugenio Bernal MD
[2016-11-17] MEDS: MAG-OX PO SCH ×2 (09:34→22:00)
[2016-11-17] MEDS: NS 1,000 ML IV SCH (12:00)
[2016-11-17] MEDS ORDERED: LOPRESSOR IV ONE (12:54)
[2016-11-17] MEDS ORDERED: LOPRESSOR ONE (13:00)
--- NOTE | 2016-11-17 14:32 | PROGRESS NOTE ---
DATE: 11/17/2016 SUBJECTIVE: Mr. Mueller is somewhat more sedated today. He opens his eyes to physical and verbal stimuli but does not really respond very readily. says he is a little bit more sedate today. PHYSICAL EXAMINATION: Afebrile. Heart rate of 82. He is currently in the 70s in sinus rhythm. His most recent blood pressure is 185/97. Generally, he is in no acute distress. Cardiovascular: He is in a regular rate and rhythm. He has no murmurs. He does appear to be somewhat edematous today with edema noted diffusely in his upper and lower extremities. Chest exam sounds relatively clear to auscultation bilaterally. He has no increased work of breathing. Abdomen is soft, nontender, nondistended. He has no obvious organomegaly. PERTINENT DATA: He has no chemistry data from today. ASSESSMENT: 1. Atrial fibrillation. 2. Gastrointestinal bleed. 3. Anasarca. PLAN: We will check a CMP today. His dig level today was normal at 1. I have added in hydralazine 10 mg IV q.4 p.r.n. systolic greater than 160. We will consider a dose of albumin today if he is quite low. In addition, based on his renal function, we may consider dosing him with some diuretic. He does seem quite edematous diffusely. cc: MD Eugenio Echeverria MD
[2016-11-17] MEDS: APRESOLINE IV PRN (14:53)
[2016-11-17 15:23] LABS: ALBUMIN 2.4 g/dL (3.5-5.0); CALCIUM 8.3 mg/dL (8.8-10.2); POTASSIUM 3.7 mmol/L (3.5-5.1); TOTAL BILIRUBIN 4.37 mg/dL (0.20-1.00); TOTAL PROTEIN 6.2 g/dL (6.3-8.3)
[2016-11-17] MEDS ORDERED: LASIX IV ONE (16:50)
[2016-11-17] MEDS: SODIUM CHLORIDE 0.9% INJ SCH (18:15)
--- NOTE | 2016-11-17 18:21 | PROGRESS NOTE ---
DATE: 11/17/2016 SUBJECTIVE: Mr. Mueller is sitting up in his hospital bed today. He is awake and easily arousable. He is oriented to name and place. He is scheduled to have an EGD and colonoscopy later this evening. His family is concerned that his eyes appear yellow. He does have some jaundice. OBJECTIVE: His total bilirubin was 4.37. His ALT was 140. The AST was 233. His blood pressure is trending down with IV Apresoline. Vital Signs: Temperature 97.5 degrees, pulse 71, respirations 17, BP 174/77. CV: Irregularly irregular. Lungs: Clear. Abdomen: Soft, nontender, with active bowel sounds. ASSESSMENT AND PLAN: Transaminitis. I will check a hepatitis profile, ferritin, and an BEATRIZ as well as an ultrasound of the gallbladder. I suspect it is passive congestion of the liver. Following of the EGD and colonoscopy we will begin tube feedings. cc: Eugenio Bernal MD
--- NOTE | 2016-11-17 18:53 | Diag Imaging Result Doc PS360 ---
EXAM: US GB < RUQ (LIMITED) INDICATION: elevated liver enzymes COMPARISON: None. FINDINGS: There is a large amount of echogenic sludge layering in the gallbladder lumen. No shadowing stones are identified. There is no evidence of gallbladder wall thickening or pericholecystic fluid. The common bile duct is normal in diameter. Sonographic Barragan's sign was reported to be negative. The liver is prominent measuring up to 19.1 cm. No discrete hepatic mass is identified. Portal venous flow is hepatopedal. Pancreas is partially obscured. The visualized portions unremarkable. Visualized portions of the aorta and IVC are unremarkable. There are multiple simple right renal cysts measuring up to 4.6 cm. IMPRESSION: 1.Large amount of echogenic sludge layering in the gallbladder lumen. 2.Prominent liver. Electronically signed by Vamsi Mclain 11/17/2016 6:51 PM
[2016-11-17] MEDS ORDERED: VERSED ONE (20:46)
--- NOTE | 2016-11-17 23:37 | OPERATIVE NOTE ---
PROCEDURE DATE: 11/17/2016 REFERRING PHYSICIAN: Eugenio Bernal MD INDICATION FOR PROCEDURE: 1. Anemia. 2. Heme-positive stools. 3. History of colon polyps. 4. History of colon cancer. 5. Family history of colon cancer. PROCEDURE PERFORMED: 1. Esophagogastroduodenoscopy. 2. Colonoscopy, canceled due to inadequate bowel prep. CONSENT: Informed consent was obtained from the patient prior to the procedure. The risks, benefits, and alternatives were discussed with the patient and his daughter. MEDICATION: The patient received monitored anesthesia care. PERFORMING PHYSICIAN: Teresa العراقي MD. ASSISTANTS: 1. RAYNA Cochran. 2. Shanice Cain RN. 3. Adilia Cruz CRNA. 4. Sudheer Jackman MD (Anesthesia). COMPLICATIONS: The patient had a nosebleed during the procedure. ESTIMATED BLOOD LOSS: 1-2 mL. SPECIMENS REMOVED: None. FINDINGS: After sedation was achieved, the upper endoscope was inserted to the 2nd portion of the duodenum. The hypopharynx appeared normal. There was a nasogastric tube in the left naris. It was visualized in the hypopharynx. Upon intubating the tubular esophagus, there was severe Lin esophagitis. In the distal esophagus, there was a superficial ulcer with a whitish base that spanned from 30-42 cm. It was serpiginous with a whitish base and no stigmata of bleeding. The GE junction was visualized at 32 cm from the incisors. There was a hiatal hernia that spanned from 42-46 cm. In the distal esophagus, there was grade C erosive esophagitis. There was hyperemia with scattered erosions in the hiatal hernia sac. In the proximal stomach, there was a whitish-based superficial ulcer with no stigmata of bleeding. Throughout the gastric lumen, there were scattered erosions consistent with erosive gastritis. There were 2 small polyps in the gastric body less than 5 mm in size. On retroflexed view, the hiatal hernia was again visualized as was the ulcer in the proximal body. On forward view, the pylorus appeared normal. In the duodenum, there was mild to moderate duodenitis, but no stigmata of bleeding. There were no ulcers present. After the exam was complete, the lumen was decompressed and the scope was removed without incident. IMPRESSION: 1. Nasogastric tube in the left naris complicated by nosebleed. 2. Lin esophagitis. 3. Distal esophageal ulcer. 4. Grade C erosive esophagitis. 5. Hiatal hernia. 6. Ulcer in the cardia/proximal gastric body. 7. Erosive gastritis. 8. A few small gastric polyps in the gastric body (less than 5 mm in size). 9. Duodenitis. RECOMMENDATION: 1. I recommend that the patient have humidified oxygen to prevent further nosebleeds. We were able to achieve hemostasis with tamponade. 2. Continue Protonix drip for 72 hours. After 72 hours, transition to a q.12 hour dosing interval. 3. Add Carafate suspension 1 g 4 times a day for 12 weeks, then stop. 4. In light of the Lin esophagitis, I will begin IV Diflucan. He will need a total of 21 days of treatment. 5. Although the patient has a need for nutrition support, we were unable to utilize his nares for tube feedings. Therefore, I will remove the nasogastric tube in light of the active nose bleed. 6. Please place the patient on a full liquid diet with protein shakes in between meals and Ensure clear throughout the day. 7. In the absence of active bleeding, I will schedule the patient to undergo a colonoscopy as an outpatient. Alternatively, if his hemoglobin drops or there is a need to start anticoagulation, one can consider performing the endoscopy as an inpatient in order to clear his GI tract. cc: MD Eugenio Salgado MD
[2016-11-18] MEDS: MORPHINE IV PRN ×4 (00:01→20:30)
[2016-11-18] MEDS: APRESOLINE IV PRN ×4 (03:21→17:14)
[2016-11-18] MEDS ORDERED: DIFLUCAN 200 MG/NS 200 MG/100 ML IVPB IV ONE (04:44)
[2016-11-18] MEDS: HUMALOG SUBQ SCH ×4 (05:30→22:11)
[2016-11-18] MEDS: ZOSYN 2.25 GM in NS 50 ML IV SCH ×4 (06:00→22:57)
[2016-11-18] MEDS: CARAFATE LIQUID PO SCH ×4 (06:13→19:35)
[2016-11-18] MEDS: MUCINEX PO SCH ×2 (06:14→19:35)
[2016-11-18] MEDS: LOPRESSOR PO SCH ×3 (06:14→20:29)
[2016-11-18] MEDS: PROTONIX IV SCH ×2 (06:18→19:35)
[2016-11-18 09:06] LABS: HEMATOCRIT 36.6 % (42.0-52.0); HEMOGLOBIN 11.3 g/dL (14.0-18.0); MCH 29.7 PG (27-31); MCHC 30.9 g/dL (33-37); MCV 96.1 FL (81-99); MPV 9.4 FL (7.4-10.4); RBC 3.81 XMIL (4.7-6.1)
[2016-11-18 09:16] LABS: ALBUMIN 2.9 g/dL (3.5-5.0); CALCIUM 8.6 mg/dL (8.8-10.2); POTASSIUM 3.6 mmol/L (3.5-5.1); TOTAL BILIRUBIN 4.69 mg/dL (0.20-1.00); TOTAL PROTEIN 5.9 g/dL (6.3-8.3)
[2016-11-18] MEDS: MAG-OX PO SCH ×2 (09:32→20:29)
[2016-11-18] MEDS: ARICEPT PO SCH (09:33)
[2016-11-18] MEDS: FLOMAX PO SCH (09:34)
[2016-11-18] MEDS: LANOXIN PO SCH (09:34)
[2016-11-18] MEDS: PROSCAR PO SCH (09:34)
[2016-11-18] MEDS: CORDARONE PO SCH (09:34)
--- NOTE | 2016-11-18 09:46 | PROGRESS NOTE ---
DATE: 11/18/2016 SUBJECTIVE: Mr. Mueller remains in atrial fibrillation. His heart rate ranges from 67-76. He is sitting up in bed. He is awake and easily arousable. He is oriented to name and place. He is breathing more comfortably. They have been able to wean him down to 3 L of O2 per nasal cannula. He is maintaining O2 saturations of 96%-98%. He had an EGD yesterday which demonstrated multiple superficial erosions in the esophagus and a small gastric ulcer. There was no active bleeding. His blood pressure is trending down. OBJECTIVE: Temperature 97.2 degrees, pulse 67, respirations 20, BP 166/91. CV: Irregularly irregular. Lungs: Crackles in the right base. Abdomen soft, nontender, with active bowel sounds. ASSESSMENT AND PLAN: 1. Paroxysmal atrial fibrillation. He remains in atrial fibrillation. Heart rate is well controlled on Lopressor. We will continue Lopressor and amiodarone. He is not actively bleeding, and his blood counts are stable. I will talk to Dr. Antoine to see if it would be safe to resume anticoagulation with low-dose Eliquis or Pradaxa as he is at increased risk for CVA with chronic atrial fibrillation. 2. Acute blood loss anemia secondary to erosive esophagitis and a gastric ulcer. We will continue pantoprazole drip for 72 hours and continue Carafate slurry 1 g q.6 hours. We will advance him to a full liquid diet and advance as tolerated. 3. Aspiration pneumonitis. We will continue supplemental O2 and try to wean him down off oxygen as long as his O2 sats remain above 90%. We will continue Zosyn. 4. Transaminitis. He had elevated liver enzymes yesterday. We have arranged for an ultrasound of the gallbladder this morning. His ferritin level was significantly elevated. Hepatitis profile is still pending. I will recheck liver function tests this morning. cc: Eugenio Bernal MD
[2016-11-18 12:31] LABS: HEPATITIS PROFILE ACUTE SEE COMMENTS
[2016-11-18] MEDS: ZOFRAN IV PRN (14:19)
--- NOTE | 2016-11-18 16:06 | PROGRESS NOTE ---
DATE: 11/18/2016 SUBJECTIVE: Mr. Mueller is lying in his hospital bed in the Intensive Care Unit in no acute distress. Restraints have been removed. No one is at bedside. OBJECTIVE: Vital Signs: Temperature 97.2 degrees, heart rate 78, respirations 166/91, O2 saturation 96% on 3 L nasal cannula. LABORATORY: White blood cells 5.23, hemoglobin 11.3, hematocrit 36.3, platelet count 328,000. Sodium 149, potassium 3.6, chloride 103, CO2 of 34, BUN 35, creatinine 1.4, glucose 144. PHYSICAL EXAMINATION: Cardiovascular: S1, S2 heard. Rate controlled. Respiratory: Chest with some coarse breath sounds bilaterally. Gastrointestinal: Abdomen is soft, nontender, with positive bowel sounds. Extremities: Patient has edema noted. He definitely has some left upper extremity pitting edema and bilateral pitting edema in the lower extremities with the right being slightly worse than the left. ASSESSMENT AND PLAN: 1. Chronic anemia secondary to gastrointestinal bleed. Patient is now status post esophagogastroduodenoscopy. According to that report he had some gastritis as well as a gastric ulcer. However, there was no active bleeding at the time of the esophagogastroduodenoscopy. He is now on proton pump inhibitors and Carafate. Hemoglobin has been stable. 2. Atrial fibrillation. Currently rate controlled. Continue as per Cardiology. 3. Deep vein thrombus in right femoral artery. As there has been no active bleeding found on the EGD and the patient's hemoglobin has stabilized, I recommend that the patient be placed on anticoagulation with either heparin or Lovenox or have placement of an IVC filter. Both options are difficult at this time due to his overall status. 4. Aspiration pneumonitis. He will continue IV antibiotics. He is now on lower amounts of O2 via nasal cannula. Continue current management. 5. We will sign off for now and be available as needed. We will continue to follow peripherally. Dictated by STEVIE Sparks for Sheri Vasquez MD cc: MD Eugenio Amador MD I have seen and examined the patient and the above note reflects my assessment and plan. Sheri Vasquez MD [facility]
[2016-11-18] MEDS: NS 1,000 ML IV SCH (19:35)
[2016-11-18] MEDS: SODIUM CHLORIDE 0.9% INJ SCH (19:35)
[2016-11-18] MEDS: HEPARIN SUBQ SCH (20:30)
[2016-11-18] MEDS: DIFLUCAN 100 MG/NS 100 MG/50 ML IVPB IV SCH (22:10)
[2016-11-19] MEDS: CARAFATE LIQUID PO SCH ×4 (02:12→20:05)
[2016-11-19] MEDS: APRESOLINE IV PRN (02:12)
[2016-11-19] MEDS: HUMALOG SUBQ SCH ×4 (03:08→21:11)
--- NOTE | 2016-11-19 03:32 | PROGRESS NOTE ---
DATE: 11/18/2016 SUBJECTIVE: The patient states that he feels much better today. Since we began IV Diflucan, he reports a return of his appetite. He is currently tolerating a full liquid diet but is hungry for solid food. He is sitting up at bedside and having a conversation with his family, as well as the nursing staff. OBJECTIVE: Vital Signs: On exam, his blood pressure is 163/78, pulse 68, respirations 20, temperature of 97.8 degrees. Abdominal Examination: He has normoactive bowel sounds. The abdomen is soft, nontender, with no rebound or guarding. OBJECTIVE DATA: Reveals a hemoglobin of 11.3 with hematocrit of 36.6 and a white count of 5.23. He has 328,000 platelets. Sodium is 149, potassium 3.6, chloride 103, CO2 34, BUN 35, creatinine 1.4, with a glucose of 104. Calcium is 8.6, total bilirubin of 4.69. AST is 160, ALT 123, alkaline phosphatase is 107, total protein is 5.9, with an albumin of 2.9. IMPRESSION: 1. Lin esophagitis. 2. Distal esophageal ulcer. 3. Grade C erosive esophagitis. 4. Hiatal hernia. 5. Gastric ulcer. 6. Erosive gastritis. 7. Gastric polyps. 8. Duodenitis. 9. Abnormal liver function tests. RECOMMENDATION: 1. Clinically, the patient is improving considerably. Therefore, I will advance his diet to a GI soft. 2. Continue Diflucan for a total of 21 days of therapy. 3. Continue Protonix drip for total of 72 hours and then transition to twice a day dosing. 4. Continue Carafate for 4 times a day for 12 weeks and then stop. 5. Continue his bowel program as needed. 6. He will need undergo an outpatient colonoscopy, as he has a personal history of both colon cancer and colon polyps. 7. Patient's liver function tests are gradually increasing. They peaked on 11/17/2016. It is likely related to his hypotension and his atrial fibrillation with rapid ventricular response. I recommend conservative management and monitoring. 8. Additional recommendations to follow based on his clinical course. cc: MD Eugenio Salgado MD
[2016-11-19] MEDS: ZOSYN 2.25 GM in NS 50 ML IV SCH ×4 (04:48→22:05)
[2016-11-19] MEDS: LOPRESSOR PO SCH ×3 (04:56→21:13)
[2016-11-19] MEDS: PROTONIX IV SCH ×2 (06:23→18:10)
[2016-11-19] MEDS: SODIUM CHLORIDE 0.9% INJ SCH ×2 (06:23→18:10)
[2016-11-19] MEDS: MUCINEX PO SCH ×2 (06:23→18:10)
[2016-11-19] MEDS: FLOMAX PO SCH (08:07)
[2016-11-19] MEDS: PROSCAR PO SCH (08:07)
[2016-11-19] MEDS: ARICEPT PO SCH (08:07)
[2016-11-19] MEDS: LANOXIN PO SCH (08:08)
[2016-11-19] MEDS: CORDARONE PO SCH (08:08)
[2016-11-19] MEDS: MAG-OX PO SCH ×2 (08:08→20:05)
[2016-11-19] MEDS: HEPARIN SUBQ SCH ×2 (08:08→20:05)
[2016-11-19] MEDS: MORPHINE IV PRN ×3 (08:31→21:10)
[2016-11-19] MEDS: NORVASC PO SCH (08:41)
[2016-11-19 08:56] LABS: HEMATOCRIT 36.4 % (42.0-52.0); HEMOGLOBIN 11.3 g/dL (14.0-18.0); MCH 30.2 PG (27-31); MCV 97.3 FL (81-99); RBC 3.74 XMIL (4.7-6.1)
[2016-11-19 09:36] LABS: CALCIUM 8.3 mg/dL (8.8-10.2); POTASSIUM 3.9 mmol/L (3.5-5.1)
--- NOTE | 2016-11-19 10:54 | PROGRESS NOTE ---
DATE: 11/19/2016 SUBJECTIVE: Mr. Mueller has a history of paroxysmal atrial fibrillation. He has converted back into sinus rhythm. Heart rate is well controlled in the 60s and 70s on a combination of Lopressor and amiodarone. He had noninvasive venous studies of the lower extremities and has extensive deep venous thrombosis of the lower extremities bilaterally. He has deep venous thrombosis of the peroneal vein and superficial femoral vein in the right leg as well as the superficial femoral vein in the left leg. He is on low-dose Lovenox. He is scheduled for an IVC filter on Monday. OBJECTIVE: He is awake and alert and easily arousable. He is oriented to name and place. Blood pressure is still fluctuating. He denies any chest pain, palpitations, or anginal equivalents. He is back on low-dose oxygen this morning. He reports that he is breathing more comfortably. He has not had any persistent coughing. He does have an aspiration pneumonia. He has not had any further active GI bleeding. He is having less pain with swallowing. Temperature 97.0 degrees, pulse 68, respiratory rate 15, BP 168/76. CV: Regular rate and rhythm. Lungs: Crackles in the right base. Abdomen soft, nontender, with active bowel sounds. ASSESSMENT AND PLAN: 1. Deep venous thrombosis of the lower extremities bilaterally. Clotting studies are pending at this time. We will continue low-dose Lovenox 500 mg subcutaneously b.i.d. in anticipation of an IVC filter placement on Monday. 2. Acute blood loss anemia secondary to erosive gastritis and ulcer disease. We will continue pantoprazole drip and Carafate slurry. We will advance his diet as tolerated. 3. Lin esophagitis. We will continue IV Diflucan. 4. Paroxysmal atrial fibrillation. He has converted back to sinus rhythm. We will continue Lopressor and amiodarone. 5. Essential hypertension. Blood pressure is too high. I will add amlodipine 5 mg daily. cc: Eugenio Bernal MD
--- NOTE | 2016-11-19 13:45 | PROGRESS NOTE ---
DATE: 11/19/2016 SUBJECTIVE: The patient continues without chest discomfort or dyspnea. He has converted back into sinus rhythm. OBJECTIVE: Vital Signs: Blood pressure 135/71, heart rate 62 and regular with ECG monitor showing sinus rhythm. Oxygen saturation 95% on nasal cannula oxygen at 1 L/minute. Central venous pressure appears to be normal. Auscultating the chest reveals a few crackles in the right base.Cardiac: Exam reveals a regular rate and rhythm without appreciable murmur or gallop. IMPRESSION: 1. Paroxysmal atrial fibrillation. Patient back in sinus rhythm. 2. Recent gastrointestinal bleed. 3. Deep venous thrombosis. RECOMMENDATIONS: 1. Continue amiodarone at current dose. 2. Plans for IVC filter on Monday, noted. cc: MD Eugenio Ramirez MD
[2016-11-19] MEDS: NS 1,000 ML IV SCH (20:04)
[2016-11-19] MEDS: DIFLUCAN 100 MG/NS 100 MG/50 ML IVPB IV SCH (21:13)
[2016-11-20] MEDS: CARAFATE LIQUID PO SCH ×4 (02:23→20:31)
--- NOTE | 2016-11-20 03:26 | PROGRESS NOTE ---
DATE: 11/19/2016 SUBJECTIVE: The patient is resting comfortably in the bed, watching football. He denies complaint. He reports that his dysphagia has resolved and he denies abdominal pain. He reports that he is tolerating his diet and has no complaints. RECOMMENDATIONS: The patient's dysphagia, due to Lin esophagitis, has resolved. I would complete the 10 day course of Diflucan. He is no longer having evidence of active GI bleeding. Therefore, I would continue his current management. Once he is ready for discharge, we will schedule him for an outpatient colonoscopy, as he has a history of colon cancer and colon polyps. I will follow the patient at a distance. Please feel free to contact us if there is any change in clinical status. He is scheduled to have a swallow study if there is a change in clinical course. Once he is discharged, we will make arrangements for him to undergo outpatient colonoscopy. cc: MD Eugenio Salgado MD
[2016-11-20] MEDS: ZOSYN 2.25 GM in NS 50 ML IV SCH ×4 (05:17→22:44)
[2016-11-20] MEDS: LOPRESSOR PO SCH ×3 (05:17→20:31)
[2016-11-20] MEDS: HUMALOG SUBQ SCH ×4 (05:28→22:55)
[2016-11-20 05:47] LABS: MANUAL DIFF NEEDED? NO
[2016-11-20 06:06] LABS: BASO% 0.2 % (0.0-0.8); EOS# 0.14 X1000 (0.0-0.7); EOS% 3.3 % (0.0-10.0); HEMATOCRIT 33.2 % (42.0-52.0); HEMOGLOBIN 10.2 g/dL (14.0-18.0); IMM GRAN# 0.07 X1000 (0.0-0.04); IMM GRAN% 1.6 % (0.0-0.5); INR 1.11; LYMPH# 0.61 X1000 (1.2-3.4); LYMPH% 14.2 % (20.5-51.1); MCH 30.2 PG (27-31); MCHC 30.7 g/dL (33-37); MCV 98.2 FL (81-99); MONO% 9.3 % (1.7-9.3); MPV 9.7 FL (7.4-10.4); NEUT% 71.4 % (42.2-75.2); PLT 291 X1000 (130-400); PROTIME 11.7 Seconds (9.2-11.7); RBC 3.38 XMIL (4.7-6.1)
[2016-11-20] MEDS: MUCINEX PO SCH ×2 (06:24→18:00)
[2016-11-20] MEDS: PROTONIX IV SCH ×2 (06:25→18:00)
[2016-11-20] MEDS: SODIUM CHLORIDE 0.9% INJ SCH ×2 (06:25→18:00)
[2016-11-20 06:28] LABS: ALBUMIN 2.6 g/dL (3.5-5.0); CALCIUM 8.7 mg/dL (8.8-10.2); POTASSIUM 3.7 mmol/L (3.5-5.1); TOTAL BILIRUBIN 1.84 mg/dL (0.20-1.00); TOTAL PROTEIN 5.5 g/dL (6.3-8.3)
[2016-11-20] MEDS: HEPARIN SUBQ SCH ×2 (08:42→20:31)
[2016-11-20] MEDS: ARICEPT PO SCH (08:43)
[2016-11-20] MEDS: FLOMAX PO SCH (08:44)
[2016-11-20] MEDS: PROSCAR PO SCH (08:44)
[2016-11-20] MEDS: MAG-OX PO SCH ×2 (08:44→20:31)
[2016-11-20] MEDS: NORVASC PO SCH (08:44)
[2016-11-20] MEDS: CORDARONE PO SCH (08:45)
[2016-11-20] MEDS: LANOXIN PO SCH (08:45)
--- NOTE | 2016-11-20 11:39 | PROGRESS NOTE ---
DATE: 11/20/2016 SUBJECTIVE: Mr. Mueller has a longstanding history of hypertension. His blood pressure is trending downward. We added amlodipine 5 mg daily. His blood pressure was 150/80 this morning. He was sitting up in a chair. He was alert and easily arousable. He was oriented to name and place. He reports that he is breathing comfortably. He does have an intermittent, nonproductive cough. He has maintained O2 saturations of 92 to 96% on 2 L of O2. He remains in normal sinus rhythm. Heart rate ranges from 60-80. He denies any chest pain, palpitations, or anginal equivalents. OBJECTIVE: Vital signs: He is afebrile, pulse 64, BP 150/80, respiratory rate 16. CV: Regular rate and rhythm. Lungs: Crackles in the right base. Abdomen: Soft, nontender, with active bowel sounds. ASSESSMENT AND PLAN: 1. Acute respiratory failure with hypoxia secondary to aspiration pneumonia. We will continue supplemental O2 and broad-spectrum antibiotics including Zosyn. I will recheck a portable chest x-ray today. 2. Deep venous thrombosis of the lower extremities with a recent upper gastrointestinal bleed. We will proceed with an IVC filter placement tomorrow. 3. Paroxysmal atrial fibrillation. He remains in normal sinus rhythm. We will continue Lopressor for rate control and amiodarone. 4. Acute blood loss anemia secondary to upper gastrointestinal bleed. We will continue IV pantoprazole, Carafate, and advance his diet, and recheck blood counts in the morning. His hemoglobin and hematocrit were stable at 11 and 33 today. cc: Eugenio Bernal MD
[2016-11-20] MEDS: DIFLUCAN 100 MG/NS 100 MG/50 ML IVPB IV SCH (22:44)
[2016-11-20] MEDS: NS 1,000 ML IV SCH (23:11)
[2016-11-21] MEDS: CARAFATE LIQUID PO SCH ×4 (02:57→20:48)
[2016-11-21] MEDS: HUMALOG SUBQ SCH ×4 (03:07→21:49)
[2016-11-21] MEDS: APRESOLINE IV PRN ×3 (04:11→22:08)
[2016-11-21] MEDS: ZOSYN 2.25 GM in NS 50 ML IV SCH ×4 (04:12→22:08)
[2016-11-21] MEDS: MORPHINE IV PRN ×3 (04:38→23:23)
[2016-11-21] MEDS: LOPRESSOR PO SCH ×3 (04:38→20:48)
[2016-11-21] MEDS: GEODON IM PRN ×2 (04:40→20:53)
[2016-11-21] MEDS: PROTONIX IV SCH ×2 (06:22→18:18)
[2016-11-21] MEDS: MUCINEX PO SCH ×2 (06:22→18:14)
[2016-11-21] MEDS: SODIUM CHLORIDE 0.9% INJ SCH ×2 (06:22→18:18)
[2016-11-21] MEDS: PROSCAR PO SCH (08:59)
[2016-11-21] MEDS: LANOXIN PO SCH (09:00)
[2016-11-21] MEDS: NORVASC PO SCH (09:01)
[2016-11-21] MEDS: CORDARONE PO SCH (09:02)
[2016-11-21] MEDS: HEPARIN SUBQ SCH ×2 (09:02→20:48)
[2016-11-21] MEDS: MAG-OX PO SCH ×2 (09:02→20:49)
[2016-11-21] MEDS: FLOMAX PO SCH (09:03)
[2016-11-21] MEDS: ARICEPT PO SCH (09:04)
--- NOTE | 2016-11-21 09:47 | PROGRESS NOTE ---
DATE: 11/21/2016 SUBJECTIVE: Mr. Mueller has a history of paroxysmal atrial fibrillation. He remains in normal sinus rhythm. His heart rate has ranged from 62-67 on a combination of amiodarone and Lopressor. We added amlodipine 5 mg daily over the weekend and his blood pressure is trending down. He continues with a persistent nonproductive cough, but is maintaining O2 saturations of 91-92% on room air. He did have an aspiration pneumonitis. He has bilateral deep venous thromboses of the lower extremities. Clotting studies are pending. Because of a recent GI bleed, he has been scheduled for IVC filter placement later today. OBJECTIVE: Vital Signs: Temperature 97.4, pulse 67, respiratory rate 20, BP 157/90. CV: Regular rate and rhythm. Lungs: Crackles in the right base. Abdomen: Soft, nontender, with active bowel sounds. ASSESSMENT AND PLAN: 1. Paroxysmal atrial fibrillation. He remains in normal sinus rhythm. We will continue Lopressor for rate control and amiodarone. I believe that he would be a candidate for the Watchman procedure as an outpatient. 2. Deep venous thrombosis of the lower extremities with recent upper gastrointestinal bleed. We will proceed with IVC filter placement today. 3. Upper gastrointestinal bleed with acute blood loss anemia. Blood counts remained stable. We will continue pantoprazole and Protonix and advance his diet as tolerated. 4. Aspiration pneumonia. We will continue Zosyn and recheck a portable chest x-ray today. cc: Eugenio Bernal MD
[2016-11-21] MEDS ORDERED: XYLOCAINE-MPF 2% ONE ×2 (11:17→11:56)
[2016-11-21] MEDS ORDERED: ROBINUL ONE (11:17)
[2016-11-21] MEDS ORDERED: DIPRIVAN 1% ONE (11:18)
[2016-11-21] MEDS ORDERED: MARCAINE 0.25% PF ONE (11:38)
[2016-11-21] MEDS ORDERED: XYLOCAINE-MPF 1%/EPI 1:200,000 ONE (11:38)
[2016-11-21] MEDS ORDERED: NS 250 ML ONE (11:39)
[2016-11-21] MEDS ORDERED: HEPARIN ONE ×2 (11:39→12:57)
[2016-11-21] MEDS ORDERED: FENTANYL ONE (12:21)
[2016-11-21] MEDS ORDERED: NS 500 ML ONE (12:57)
--- NOTE | 2016-11-21 17:56 | PROGRESS NOTE ---
DATE: 11/21/2016 SUBJECTIVE: Overall doing better from a clinical standpoint. His daughter is here. I have spoken with Dr. Bernal. He is clinically better, he does have progression of his DVTs in lower extremities and an apparent right hypercoagulable state. He is tolerating prophylactic heparin, and discussion about an IVC filter has been had with family and they want to proceed with this at this point to prevent what would likely be a massive pulmonary embolus if he were to embolize. PHYSICAL EXAMINATION: Vital signs: He is afebrile overnight. Temperature is 98 degrees, pulse is in the 60-80s. Blood pressures systolics in the 150s this morning. General: He is alert. He is on nasal cannula. Abdomen: Soft, nontender. Extremities: He has got stable ecchymosis right leg and his left leg without any lesions in his groin. LABORATORY: Creatinine is 1.3. Bilirubin is down to 1.84. INR is 1.11. ASSESSMENT/PLAN: A 76-year-old male with extensive DVT in the right leg and left tibial vein. I had a long discussion with the daughter regarding the risks, benefits, and alternatives of the IVC filter. We discussed bleeding, infection, vena caval thrombosis, potential propagation of his DVTs despite the filter and possibility of still having embolus even with a filter in place. She understands and would like to proceed. We plan to go today for inferior vena cava filter placement. cc: MD Eugenio Mays MD [facility]
--- NOTE | 2016-11-21 20:17 | OPERATIVE NOTE ---
PROCEDURE DATE: 11/21/2016 PREOPERATIVE DIAGNOSES: 1. Bilateral lower extremity deep vein thrombosis. 2. Right thigh intramuscular hematoma. POSTOPERATIVE DIAGNOSES: 1. Bilateral lower extremity deep vein thrombosis. 2. Right thigh intramuscular hematoma. PROCEDURE PERFORMED: 1. Ultrasound guided inferior vena cava filter Rooks by Bard via the left femoral vein. 2. Fluoroscopy less than 1 hour. 3. Inferior vena cavogram. COMPLICATIONS: None. ANESTHESIA: MAC with local. INDICATION: This 76-year-old male with a right thigh DVT was admitted for angioedema. He was started on therapeutic anticoagulation but developed intramuscular hematoma and this had to be stopped. He did have propagation of his clot in his right leg and developed a perineal clot in his left leg. Given his hypercoagulable type picture, IVC filter was placed. He has been started since on prophylactic Lovenox with out there evidence of bleeding but felt at high risk for bleeding with therapeutic anticoagulation. OPERATIVE FINDINGS: 1. Ultrasound examination left groin showed a small but compressible femoral vein with no evidence of intraluminal thrombus. 2. Interpretation of inferior vena cavagram showed a normal caliber and adequate caliber vena cava with the renal arteries visualized approximately of the level of L1 vertebrae. There was a small lumbar vessel exiting posteriorly at a level slightly below this as well. 3. Final vena cavogram showed good deployment of the filter in the infrarenal inferior vena cava with no tilting of the filter and no evidence of vena cava extravasation or obstruction. OPERATIVE NOTE: Risks, benefits, alternatives were discussed with the patient and his daughter. The daughter consented to the procedure. He was taken to the operating room. IV anesthesia was administered. Left groin was prepped after hair was removed with clippers. Chlorhexidine and draped in the usual fashion. After time-out was performed, we injected local anesthetic and a focused ultrasound left groin was performed with above findings. We used a introducer needle. We accessed the femoral vein on the 1st pass and dark nonpulsatile venous blood was noted on return. The wire threaded easily into the vena cava under fluoroscopy. After gaining wire access to the vena cava, we removed the needle and made a skin cuong with an 11 blade scalpel. We serially dilated the tract, and then using the dilator sheath combination, we advanced this under fluoroscopic guidance into the inferior vena cava. We placed a glow wire at the junction of L1-L2 vertebrae on the abdomen to romeo this location and then performed our vena cavagram with Omnipaque. We were able to identify the right renal vein at the level of L1. At this point, we advanced the Bard Rooks inferior vena cava filter through the 8.5-Nepali sheath up to the level at the junction of L2-L3 below the level with the tip just at the disk space of L2 below the level of the renal vessels. We again confirmed this location based off her previous venogram. This was passed through a pre-flushed catheter as well and we deployed the filter. There was good deployment with no evidence of complication. Withdrew the catheter back and shot a final vena cavogram with no evidence of complication. Withdrew the sheath and the deployment device in its entirety and held pressure in the groin for several minutes. There was no evidence of bleeding or hematoma. Tight pressure dressing was applied after Steri-Strips was placed in the groin. He tolerated the procedure well with no identified complications. He was transferred back to the ICU in good condition. Counts correct x2. cc: MD Eugenio Mays MD MTDD
[2016-11-21] MEDS: STERILE WATER INJ. INJ PRN (20:53)
[2016-11-21] MEDS: DIFLUCAN 100 MG/NS 100 MG/50 ML IVPB IV SCH (21:01)
[2016-11-22] MEDS: CARAFATE LIQUID PO SCH ×4 (02:03→21:32)
[2016-11-22] MEDS: GEODON IM PRN (02:04)
[2016-11-22] MEDS: MORPHINE IV PRN ×3 (02:04→21:34)
[2016-11-22] MEDS: STERILE WATER INJ. INJ PRN (02:05)
[2016-11-22] MEDS: ZOSYN 2.25 GM in NS 50 ML IV SCH ×4 (04:25→22:42)
[2016-11-22] MEDS: HUMALOG SUBQ SCH ×4 (04:25→22:41)
[2016-11-22] MEDS: MUCINEX PO SCH ×2 (06:27→18:34)
[2016-11-22] MEDS: LOPRESSOR PO SCH ×3 (06:27→21:14)
[2016-11-22] MEDS: PROTONIX IV SCH ×2 (06:28→18:29)
[2016-11-22] MEDS: LANOXIN PO SCH (08:30)
[2016-11-22] MEDS: MAG-OX PO SCH ×2 (08:31→21:14)
[2016-11-22] MEDS: ARICEPT PO SCH (08:31)
[2016-11-22] MEDS: PROSCAR PO SCH (08:31)
[2016-11-22] MEDS: HEPARIN SUBQ SCH ×2 (08:31→21:14)
[2016-11-22] MEDS: CORDARONE PO SCH (08:31)
[2016-11-22] MEDS: NORVASC PO SCH (08:31)
[2016-11-22] MEDS: FLOMAX PO SCH (09:00)
[2016-11-22] MEDS: SODIUM CHLORIDE 0.9% INJ SCH (18:29)
[2016-11-22] MEDS: DIFLUCAN 100 MG/NS 100 MG/50 ML IVPB IV SCH (21:16)
--- NOTE | 2016-11-22 22:34 | PROGRESS NOTE ---
DATE: 11/22/2016 SUBJECTIVE: The patient's chart was reviewed. In summary, patient was admitted with acute angioedema. Unfortunately, he developed significant delirium associated with steroid intervention. His hospital course has been prolonged and complicated by urinary retention, acute renal failure, profound weakness, deep venous thrombosis of bilateral lower extremities, and gastrointestinal bleed with acute blood loss anemia. This morning, patient states he was feeling reasonably well. Throughout the day patient continued to show slow improvement. He remains in a sinus-generated rhythm. His p.o. intake is adequate. He remains profoundly weak. He denies fevers, chills, nausea, vomiting, shortness of breath, or chest discomfort. OBJECTIVE: Vital signs: T-max 97.8 degrees, heart rate 59-83, respirations 18-24, blood pressure, 108-152 over 77-82. General: Chronically ill appearing, no acute distress. Cardiovascular: Regular rate and rhythm. No significant murmurs, rubs, or gallops. Pulmonary: Clear to auscultation anteriorly. Abdomen: Soft, nontender, nondistended. Positive bowel sounds. Extremities: Moves all extremities well. No significant clubbing, cyanosis, or edema. Dermatologic: Evaluation reveals no evidence of rash. LABORATORY DATA: None. ASSESSMENT AND PLAN: 1. Paroxysmal atrial fibrillation-patient continues to maintain a normal sinus rhythm on Lopressor and amiodarone. He is not a candidate for anticoagulation secondary to upper gastrointestinal bleed. For now, we will follow clinically. 2. Deep venous thrombosis of lower extremities-patient had an inferior vena cava filter placed yesterday. He tolerated the procedure quite well. We will defer long-term management to Dr. Bernal. 3. Upper gastrointestinal bleed with acute blood loss anemia-as of last evaluation, blood count were stable. We will continue pantoprazole therapy. We will recheck a CBC in the morning. 4. Aspiration pneumonia-we will continue Zosyn therapy. We will schedule a chest x-ray. 5. Angioedema-patient has achieved full resolution. 6. Vascular dementia with acute delirium-patient continues to have intermittent confusion. For now, we will continue his current regimen. 7. Urinary retention-patient has a Deleon catheter in place. We will remain aware. 8. Profound weakness-patient's physical therapy has been held secondary to bilateral deep venous thromboses. We will plan to reinitiate physical therapy in the near future. 9. Disposition-at this point, patient continues to require shelter care in a hospital setting. We will plan discharge home once appropriate. cc: MD Eugenio Peralta MD
[2016-11-22] MEDS: NS 1,000 ML IV SCH (22:43)
[2016-11-23] MEDS: MORPHINE IV PRN (01:15)
[2016-11-23] MEDS: CARAFATE LIQUID PO SCH ×4 (01:25→20:37)
[2016-11-23] MEDS: HUMALOG SUBQ SCH ×4 (04:38→21:07)
[2016-11-23 04:39] LABS: MANUAL DIFF NEEDED? NO
[2016-11-23 04:43] LABS: BASO% 0.2 % (0.0-0.8); EOS# 0.15 X1000 (0.0-0.7); EOS% 2.8 % (0.0-10.0); HEMATOCRIT 35.5 % (42.0-52.0); HEMOGLOBIN 11.2 g/dL (14.0-18.0); IMM GRAN# 0.04 X1000 (0.0-0.04); IMM GRAN% 0.7 % (0.0-0.5); LYMPH# 0.88 X1000 (1.2-3.4); LYMPH% 16.5 % (20.5-51.1); MCH 30.7 PG (27-31); MCHC 31.5 g/dL (33-37); MCV 97.3 FL (81-99); MONO# 0.42 X1000 (0.11-0.59); MONO% 7.9 % (1.7-9.3); MPV 9.8 FL (7.4-10.4); NEUT% 71.9 % (42.2-75.2); PLT 330 X1000 (130-400); RBC 3.65 XMIL (4.7-6.1)
[2016-11-23] MEDS: ZOSYN 2.25 GM in NS 50 ML IV SCH ×2 (04:55→10:20)
[2016-11-23] MEDS: LOPRESSOR PO SCH ×2 (04:55→20:38)
[2016-11-23 05:42] LABS: ALBUMIN 2.4 g/dL (3.5-5.0); CALCIUM 8.2 mg/dL (8.8-10.2); TOTAL BILIRUBIN 1.78 mg/dL (0.20-1.00); TOTAL PROTEIN 6.2 g/dL (6.3-8.3)
[2016-11-23] MEDS: MUCINEX PO SCH (06:17)
[2016-11-23] MEDS: SODIUM CHLORIDE 0.9% INJ SCH (06:17)
[2016-11-23] MEDS: PROTONIX IV SCH (06:17)
[2016-11-23 06:21] LABS: POTASSIUM 4.6 mmol/L (3.5-5.1)
--- NOTE | 2016-11-23 07:23 | Diag Imaging Result Doc PS360 ---
CHEST-1 VIEW - 11/23/2016 INDICATION: pneumonia TECHNIQUE: COMPARISON: 11/17/2016 FINDINGS: The lungs are normally expanded and clear. Heart size and mediastinal contours are normal. No pneumothorax or pleural effusion. IMPRESSION: Negative exam. Electronically signed by Misael Neal 11/23/2016 7:21 AM
[2016-11-23] MEDS: PROSCAR PO SCH (08:11)
[2016-11-23] MEDS: FLOMAX PO SCH (08:11)
[2016-11-23] MEDS: HEPARIN SUBQ SCH ×2 (08:11→20:37)
[2016-11-23] MEDS: NORVASC PO SCH (08:11)
[2016-11-23] MEDS: ARICEPT PO SCH (08:11)
[2016-11-23] MEDS: MAG-OX PO SCH ×2 (08:11→20:38)
[2016-11-23] MEDS: LANOXIN PO SCH (08:26)
[2016-11-23] MEDS: CORDARONE PO SCH (08:29)
--- NOTE | 2016-11-23 13:04 | PROGRESS NOTE ---
DATE: 11/23/2016 SUBJECTIVE: Mr. Mueller remains in sinus rhythm. His heart rate has been well controlled. His heart rate has ranged from 50-62. He has not had any heart rates in the 30s or 40s. His blood pressure is stable. He denies any chest pain, palpitations, or anginal equivalents. He denies any reflux, sour brash, dysphagia, melena, or hematochezia. His blood counts are stable with a hemoglobin of 11.2 and hematocrit of 35.5. OBJECTIVE: Vital signs: Temperature 98.3 degrees, pulse 62, respiratory rate 20, BP 153/68. CV: Regular rate and rhythm. Lungs: Clear. Abdomen: Soft, nontender, with active bowel sounds. DIAGNOSTIC STUDIES: A chest x-ray demonstrated clear lung gutierrez. ASSESSMENT AND PLAN: 1. Paroxysmal atrial fibrillation. He remains in normal sinus rhythm. He did have a heart rate as low as 50. I will reduce the dosage of metoprolol to 50 mg b.i.d. We will continue the amiodarone. 2. Acute blood loss anemia secondary to upper gastrointestinal bleed. We will continue Protonix and Carafate. 3. Aspiration pneumonia. He is breathing comfortably. He is not having coughing or pleuritic chest pain. Chest x-ray shows resolution of the pneumonia. I will stop the Zosyn. 4. Physical debility. We will continue physical therapy. We will consult manager social media for short-term rehab placement. cc: Eugenio Bernal MD
[2016-11-23] MEDS: SPIRIVA INH SCH (17:18)
[2016-11-23] MEDS ORDERED: CALMOSEPTINE OINTMENT TOP PRN (18:06)
--- NOTE | 2016-11-23 21:30 | PROGRESS NOTE ---
DATE: 11/23/2016 SUBJECTIVE: The patient continues to improve clinically. However, cystoscopy has been put on hold pending management of his large blood clot. Clinically, he has been hemodynamically stable. He was given our contact information. The plan is to perform an outpatient EGD and colonoscopy once his anticoagulation and DVT have been addressed. cc: MD Eugenio Salgado MD
[2016-11-23] MEDS: DUONEB (A & A) INH SCH (21:35)
[2016-11-23] MEDS: DIFLUCAN 100 MG/NS 100 MG/50 ML IVPB IV SCH (22:42)
[2016-11-24] MEDS: GEODON IM PRN ×2 (01:52→21:39)
[2016-11-24] MEDS: CARAFATE LIQUID PO SCH ×4 (01:57→20:06)
[2016-11-24] MEDS: DUONEB (A & A) INH SCH ×4 (03:46→22:07)
[2016-11-24] MEDS: HUMALOG SUBQ SCH ×4 (04:11→22:53)
[2016-11-24] MEDS: PROTONIX PO SCH (06:04)
[2016-11-24 08:43] LABS: MANUAL DIFF NEEDED? NO
[2016-11-24 08:47] LABS: BASO% 0.3 % (0.0-0.8); EOS# 0.07 X1000 (0.0-0.7); EOS% 1.1 % (0.0-10.0); HEMATOCRIT 34.3 % (42.0-52.0); IMM GRAN# 0.04 X1000 (0.0-0.04); IMM GRAN% 0.6 % (0.0-0.5); LYMPH# 0.72 X1000 (1.2-3.4); LYMPH% 11.2 % (20.5-51.1); MCH 30.9 PG (27-31); MCHC 32.1 g/dL (33-37); MCV 96.3 FL (81-99); MONO# 0.67 X1000 (0.11-0.59); MONO% 10.4 % (1.7-9.3); MPV 9.4 FL (7.4-10.4); NEUT% 76.4 % (42.2-75.2); PLT 320 X1000 (130-400); RBC 3.56 XMIL (4.7-6.1)
--- NOTE | 2016-11-24 08:48 | PROGRESS NOTE ---
DATE: 11/24/2016 SUBJECTIVE: Mr. Mueller has a history of hypertension. His blood pressure has generally been well controlled. His blood pressure was 152/81 this morning. He continues with a persistent nonproductive cough. He had recently been treated for an aspiration pneumonia and the infiltrate had cleared on a chest x-ray from yesterday. He is maintaining O2 saturations of 92% to 99% on 2 L of O2. He is a former smoker. He denies any reflux, sour brash, dysphagia, melena or hematochezia. A recent EGD demonstrated erosive esophagitis and gastritis. OBJECTIVE: Vital signs: Temperature 97.9 degrees, pulse 85, respiratory rate 24, blood pressure 152/81. CV: Regular rate and rhythm. Lungs: Scattered rhonchi which clear with coughing. Abdomen: Soft, nontender, with active bowel sounds. ASSESSMENT AND PLAN: 1. Essential hypertension. Blood pressure is generally stable. We will continue metoprolol 50 mg twice daily and Norvasc 5 mg daily. 2. Paroxysmal atrial fibrillation. He remains in normal sinus rhythm. Since reducing the dosage of metoprolol to 50 mg twice daily, he has had no further episodes of significant bradycardia. We will continue Lopressor for rate control and amiodarone. 3. Acute blood loss anemia secondary to upper gastrointestinal bleed. Blood counts have remained stable. We will continue Pantoprazole and Carafate 1 g every 6 hours. 4. Physical debility. We will continue physical therapy and are awaiting a rehabilitation bed. cc: Eugenio Bernal MD
[2016-11-24] MEDS: FLOMAX PO SCH (08:59)
[2016-11-24] MEDS: ARICEPT PO SCH (08:59)
[2016-11-24] MEDS: MAG-OX PO SCH ×2 (08:59→20:06)
[2016-11-24] MEDS: LOPRESSOR PO SCH ×2 (09:00→20:07)
[2016-11-24] MEDS: LANOXIN PO SCH (09:00)
[2016-11-24] MEDS: HEPARIN SUBQ SCH ×2 (09:00→20:06)
[2016-11-24] MEDS: PROSCAR PO SCH (09:00)
[2016-11-24] MEDS: CORDARONE PO SCH (09:01)
[2016-11-24] MEDS: NORVASC PO SCH (09:01)
[2016-11-24] MEDS: SPIRIVA INH SCH (09:25)
[2016-11-24 09:29] LABS: CALCIUM 8.2 mg/dL (8.8-10.2); POTASSIUM 4.1 mmol/L (3.5-5.1)
--- NOTE | 2016-11-24 09:38 | Diag Imaging Result Doc PS360 ---
EXAM: CHEST-PORTABLE INDICATION: cough TECHNIQUE: One view COMPARISON: 11/23/2016 FINDINGS: The lungs are grossly clear. There is no discrete pleural fluid collection or pneumothorax. The aortic arch is somewhat tortuous and prominent but stable. Cardiac silhouette is unremarkable. Central vasculature appears normal. IMPRESSION: No evidence of acute pathology by plain radiograph. Electronically signed by Vamsi Mclain 11/24/2016 9:35 AM
--- NOTE | 2016-11-24 10:09 | ED EKG INTERP ---
This chart was entered by Shalonda Gil Scribe, acting as scribe for Reggie Frazier MD. EKG Interpretation - EKG Time of EKG reading by physician:: 22:11 EKG Read and Signed by:: Reggie Frazier EKG Interpretation (*Must complete 3 of following elements*): Abnormal Rate: 70 Rhythm: sinus rhythm with 1st degree AV block with occasional PVCs ST Wave: non-specific ST changes Comments: prolonged QT Attestation - Physician/ PARESH Attestation Patient care was provided by Advanced Practice Provider:: Yes Advanced Practice Provider documentation review:: The Mid-level provider documentation, treatment plan and medical decision making was reviewed by the physician who agrees with all treatment and medical decision making by the MLP. The physician spent face to face time with patient:: No Advanced Practice Provider documentation review:: Supervising physician onsite and consulted in the evaluation and care of this patient. The physician did not have a face to face encounter with the patient. This chart was documented by the indicated scribe, (Shalonda Gil Scribe) and accurately reflects the services I performed and decisions made by Freddie garza Christophe I, MD, as attested by the provider's signature.
[2016-11-24] MEDS: ZOFRAN IV PRN (11:40)
[2016-11-24] MEDS: ZANTAC PO SCH (20:06)
[2016-11-25] MEDS: CARAFATE LIQUID PO SCH ×4 (02:27→20:12)
[2016-11-25] MEDS: DUONEB (A & A) INH SCH ×4 (03:25→19:00)
[2016-11-25] MEDS: HUMALOG SUBQ SCH ×4 (04:49→22:31)
[2016-11-25] MEDS: PROTONIX PO SCH (06:00)
[2016-11-25] MEDS: NORVASC PO SCH (08:22)
[2016-11-25] MEDS: ZANTAC PO SCH ×2 (08:22→20:13)
[2016-11-25] MEDS: HEPARIN SUBQ SCH ×2 (08:22→20:12)
[2016-11-25] MEDS: FLOMAX PO SCH (08:23)
[2016-11-25] MEDS: MAG-OX PO SCH ×2 (08:23→20:13)
[2016-11-25] MEDS: DIFLUCAN PO SCH (08:23)
[2016-11-25] MEDS: LOPRESSOR PO SCH ×2 (08:23→20:13)
[2016-11-25] MEDS: ARICEPT PO SCH (08:23)
[2016-11-25] MEDS: CORDARONE PO SCH (08:23)
[2016-11-25] MEDS: PROSCAR PO SCH (08:23)
[2016-11-25] MEDS: LANOXIN PO SCH (08:24)
--- NOTE | 2016-11-25 09:23 | PROGRESS NOTE ---
DATE: 11/25/2016 SUBJECTIVE: Mr. Mueller has a history of paroxysmal atrial fibrillation. He remains in normal sinus rhythm. His heart rate ranges from 66-81 on metoprolol and amiodarone. His blood pressure remained stable. Systolic blood pressures have ranged from 141-153, whereas his diastolic blood pressures have ranged from 67-77. He continues with a persistent nonproductive cough. Chest x- rays for the past 2 days have been within normal limits. The aspiration pneumonia has resolved. He is now off antibiotics. He had a swallowing assessment performed yesterday, which was grossly within normal limits. We suspected that the aspiration event was due to gastric secretions, and we added Zantac. He denies any reflux, sour brash, dysphagia, melena, or hematochezia. He has less pain with swallowing on the Diflucan. He is tolerating a pureed diet. He is making slow progress with physical therapy. OBJECTIVE: Vital signs: BP 153/77, pulse 81, respirations 22, temperature 98.0. CV: Regular rate and rhythm. Lungs: Clear anteriorly. Abdomen: Soft, nontender, with active bowel sounds. Extremities: Without edema. ASSESSMENT AND PLAN: 1. Paroxysmal atrial fibrillation. We will continue subcu heparin 5000 units subcutaneously b.i.d., Lopressor 50 mg b.i.d., and amiodarone. 2. Deep venous thrombosis of the lower extremities status post inferior vena cava filter placement. Clotting studies were performed. He has a protein-C and protein-S deficiency. I am going to talk to Dr. [place] about treating him with low-dose Coumadin to reduce the risk of recurrent deep venous thrombosis with a clotting disorder. A clot can form between the lungs and the filter. Certainly, starting any long-term anticoagulation has its risks given the recent upper gastrointestinal bleed. 3. Acute blood loss anemia secondary to erosive esophagitis and gastritis. We will continue pantoprazole, Protonix, and Zantac. Blood counts are stable. 4. Lin esophagitis. We will continue Diflucan 100 mg daily for 3 weeks. cc: Eugenio Bernal MD
[2016-11-25] MEDS: SPIRIVA INH SCH (09:27)
[2016-11-25] MEDS: PERCOCET-10 PO PRN (20:19)
[2016-11-26] MEDS: CARAFATE LIQUID PO SCH ×4 (02:39→19:43)
[2016-11-26] MEDS: DUONEB (A & A) INH SCH ×4 (03:10→19:18)
[2016-11-26] MEDS: PROTONIX PO SCH (06:07)
[2016-11-26] MEDS: SPIRIVA INH SCH (07:41)
--- NOTE | 2016-11-26 08:28 | PROGRESS NOTE ---
DATE: 11/26/2016 SUBJECTIVE: Mr. Mueller remains in normal sinus rhythm. His heart rate is well controlled on Lopressor 50 mg b.i.d. Heart rate ranges in the 80s. He denies any chest pain, palpitations, or anginal equivalents. He is tolerating a pureed diet without coughing or dysphagia. He is not having any breakthrough heartburn, indigestion or sour brash. He has less esophageal discomfort with swallowing. He is maintaining O2 saturations of 92-96% on supplemental O2. His cough continues to improve. The cough typically is worse in the morning. His blood pressure is stable. OBJECTIVE: Temperature 98.5 degrees, pulse 67, respirations 18, BP 139/63.CV: Regular rate and rhythm. Lungs: Distant breath sounds with increased period of expiration. Abdomen: Soft, nontender with active bowel sounds. Extremities: Trace ankle edema. ASSESSMENT AND PLAN: 1. Paroxysmal atrial fibrillation. He remains in normal sinus rhythm. We will continue Lopressor for rate control and amiodarone. We will continue subcu heparin 5000 units b.i.d. given the recent upper gastrointestinal bleed. 2. Lin esophagitis. We will continue Diflucan 100 mg daily for a period of 3 weeks. 3. Acute blood loss anemia secondary to upper gastrointestinal bleed. We will continue pantoprazole to 40 mg b.i.d. Continue Zantac 150 mg b.i.d. and Carafate. 4. Deep venous thrombosis of the lower extremities status post IVC filter placement. He was noted to have protein C and protein S deficiency. I believe that he will need anticoagulation. I do not think he would be a great candidate for Eliquis, Pradaxa or Xarelto as we cannot reverse those medicines in the event of a bleed. Certainly in the short period of time, we could continue low-dose Lovenox. Certainly, we could consider low-dose Coumadin which in the event of a bleed would be reversible. 5. Vascular dementia. We will continue Aricept. We stopped the Namenda as it can cause according to the literature angioedema. 6. Physical debility. We will continue physical therapy and anticipate discharge to [facility] on Monday. cc: Eugenio Bernal MD
[2016-11-26 08:34] LABS: HEMATOCRIT 31.8 % (42.0-52.0); HEMOGLOBIN 9.7 g/dL (14.0-18.0)
[2016-11-26] MEDS: PROSCAR PO SCH (08:49)
[2016-11-26] MEDS: CORDARONE PO SCH (08:49)
[2016-11-26] MEDS: FLOMAX PO SCH (08:49)
[2016-11-26] MEDS: DIFLUCAN PO SCH (08:49)
[2016-11-26] MEDS: ZANTAC PO SCH ×3 (08:49→20:42)
[2016-11-26] MEDS: LOPRESSOR PO SCH ×3 (08:50→20:41)
[2016-11-26] MEDS: MAG-OX PO SCH ×3 (08:50→20:41)
[2016-11-26] MEDS: NORVASC PO SCH (08:50)
[2016-11-26] MEDS: ARICEPT PO SCH (08:50)
[2016-11-26] MEDS: HEPARIN SUBQ SCH ×3 (08:50→20:40)
[2016-11-26] MEDS: LANOXIN PO SCH (08:51)
--- NOTE | 2016-11-26 08:56 | Diag Imaging Result Doc PS360 ---
EXAM: CHEST-PORTABLE HISTORY: cough TECHNIQUE: Portable upright AP COMPARISON: 11/24/2016. FINDINGS: The patient is rotated to the right. The lungs are well expanded. The heart is not enlarged. The vessels are not distended. No plural effusions identified. No consolidation. IMPRESSION: No pneumonia. Electronically signed by Raimundo Beard 11/26/2016 8:53 AM
[2016-11-26 09:10] LABS: CALCIUM 7.9 mg/dL (8.8-10.2); POTASSIUM 4.4 mmol/L (3.5-5.1)
[2016-11-26] MEDS: HUMULIN R SUBQ SCH ×4 (12:34→20:41)
[2016-11-26] MEDS ORDERED: HUMALOG SUBQ SCH (16:00)
[2016-11-26] MEDS: PERCOCET-10 PO PRN (19:43)
[2016-11-27] MEDS: CARAFATE LIQUID PO SCH ×4 (01:33→20:57)
[2016-11-27] MEDS: PERCOCET-10 PO PRN ×3 (01:33→16:56)
[2016-11-27] MEDS: DUONEB (A & A) INH SCH ×5 (02:08→22:00)
[2016-11-27] MEDS: PROTONIX PO SCH (06:29)
[2016-11-27] MEDS: HUMULIN R SUBQ SCH ×4 (06:38→20:58)
[2016-11-27] MEDS: SPIRIVA INH SCH (07:46)
[2016-11-27] MEDS: ARICEPT PO SCH (08:45)
[2016-11-27] MEDS: MAG-OX PO SCH ×2 (08:45→20:57)
[2016-11-27] MEDS: DIFLUCAN PO SCH (08:46)
[2016-11-27] MEDS: PROSCAR PO SCH (08:46)
[2016-11-27] MEDS: FLOMAX PO SCH (08:47)
[2016-11-27] MEDS: HEPARIN SUBQ SCH ×2 (08:47→20:57)
[2016-11-27] MEDS: NORVASC PO SCH (08:47)
[2016-11-27] MEDS: ZANTAC PO SCH ×2 (08:47→20:57)
[2016-11-27] MEDS: LANOXIN PO SCH (08:47)
[2016-11-27] MEDS: LOPRESSOR PO SCH ×2 (08:47→20:57)
[2016-11-27] MEDS: CORDARONE PO SCH (08:48)
[2016-11-28] MEDS: CARAFATE LIQUID PO SCH ×2 (02:58→09:00)
[2016-11-28] MEDS: DUONEB (A & A) INH SCH ×2 (03:00→08:11)
[2016-11-28] MEDS: HUMULIN R SUBQ SCH ×2 (06:15→11:30)
[2016-11-28] MEDS: PROTONIX PO SCH (06:51)
[2016-11-28] MEDS: SPIRIVA INH SCH (08:11)
[2016-11-28] MEDS: HEPARIN SUBQ SCH (09:00)
[2016-11-28] MEDS: CORDARONE PO SCH (09:00)
[2016-11-28] MEDS: MAG-OX PO SCH (09:00)
[2016-11-28] MEDS: LOPRESSOR PO SCH (09:01)
[2016-11-28] MEDS: FLOMAX PO SCH (09:01)
[2016-11-28] MEDS: PROSCAR PO SCH (09:01)
[2016-11-28] MEDS: LANOXIN PO SCH (09:01)
[2016-11-28] MEDS: DIFLUCAN PO SCH (09:01)
[2016-11-28] MEDS: ZANTAC PO SCH (09:02)
[2016-11-28] MEDS: ARICEPT PO SCH (09:02)
[2016-11-28] MEDS: NORVASC PO SCH (09:02)
--- NOTE | 2016-11-28 10:00 | DISCHARGE SUMMARY ---
ADMISSION DATE: 10/26/2016 DISCHARGE DATE: 11/28/2016 DISCHARGE DIAGNOSES: 1. Acute angioedema. 2. Vascular dementia with acute delirium. 3. Acute blood loss anemia secondary to upper gastrointestinal bleed. 4. Acute chronic obstructive pulmonary disease exacerbation complicated by aspiration pneumonia. 5. Deep venous thrombosis of the lower extremities. 6. Protein C and protein S deficiencies. 7. Acute urinary retention. 8. Acute respiratory failure with hypoxia. 9. Chronic respiratory failure with hypoxia on 3 L of oxygen per nasal cannula. 10. Hypertension. 11. Gastroesophageal reflux disease. 12. Primary hypothyroidism. 13. Paroxysmal atrial fibrillation. DISCHARGE INSTRUCTIONS: 1. The patient will be transferred via ambulance to [facility] in order to undergo short-term rehabilitation. 2. Activity as tolerated. 3. Pureed diet. 4. Medications: Singulair 10 mg daily, magnesium oxide 800 mg b.i.d., DuoNeb nebulized q.6 hours, amiodarone 400 mg daily, digoxin 125 mcg daily, Proscar 5 mg daily, Diflucan 100 mg daily for 2 weeks, Percocet 10 one q.6 hours p.r.n. pain, pantoprazole 40 mg b.i.d., ranitidine 150 mg b.i.d., Carafate 1 g q.6 hours, Flomax 0.4 mg daily, Spiriva 1 inhalation daily, metoprolol 50 mg b.i.d., Aricept 10 mg daily, nifedipine ER 60 mg daily. PHYSICAL EXAMINATION: General: This is an elderly, frail, 76-year-old, gentleman in no apparent distress. Vital Signs: He is afebrile. Vital signs are stable. CV: Regular rate and rhythm. Lungs: Clear. Abdomen: Soft, nontender, with active bowel sounds. HOSPITAL COURSE: Mr. Cosme Mueller was admitted to [facility] with acute angioedema. We had previously stopped JIMENA inhibitors and angiotensin receptor blockers, and had placed him on fexofenadine as an outpatient. Previous C1 complement esterase levels were within normal limits. He was admitted to the unit where he was treated with IV Benadryl and IV Solu-Medrol with resolution of the angioedema. Upon further review of his medications, we stopped the nonsteroidals as well as the Namenda. The angioedema resolved and did not recur. He does have a longstanding history of vascular dementia complicated by delirium. He had increasing agitation, confusion, disorientation, and hallucinations while in the ICU. He was treated with Ativan, Haldol, and Geodon. A CT scan of the brain demonstrated no evidence of a stroke. An EEG demonstrated no evidence of seizure activity. We felt that the delirium was the result of medications such as his IV Solu-Medrol and Benadryl. We quickly weaned him off those medicines. He was continued on the Aricept. He also had acute on chronic renal failure. We rehydrated him with normalization of his creatinine to his baseline of 1.4-1.5. The delirium resolved. He does have a history of paroxysmal atrial fibrillation. He went in and out of atrial fibrillation throughout his hospitalization. Cardiology was consulted to see the patient. Thyroid studies and cardiac enzymes were normal. An echocardiogram demonstrated no significant valvular abnormalities. He was treated with a Cardizem drip and amiodarone. He would convert with amiodarone but he would have bradycardia on the diltiazem as well as Lopressor. He has remained in normal sinus rhythm for the past 10 days. His heart rate has been well controlled in the 60s and 70s on low-dose Lopressor and amiodarone. While taking Lovenox to reduce the risk of stroke, he was noted to have acute blood loss anemia requiring multiple transfusions. GI medicine was consulted to see the patient. An EGD demonstrated erosive gastritis and esophagitis. He was started on pantoprazole 40 mg b.i.d., Zantac 150 mg b.i.d., and Carafate. We will continue Carafate for 3 months. His reflux symptoms have largely resolved. Blood counts have remained stable. He has had no further obvious bleeding off blood thinners. We will arrange for a colonoscopy as an outpatient. Acute deep venous thrombosis of the lower extremities. Because of the presence of the acute deep venous thrombosis and recent GI bleed, an IVC filter was placed. He does have a history of COPD. He had chronic hypoxia requiring continuous home oxygen. We were never able to wean him off oxygen. He was maintaining O2 saturations of 95-96% on 3 L of O2. He will be continued on DuoNeb nebulizer treatments, as well as Spiriva. Having reached maximum hospital benefit, the patient was discharged in stable condition. cc: Eugenio Bernal MD
[2016-11-28 11:31] VITALS: BP 133/74
== END 2016-11-28 11:56 ==
LOC: ED 18:32 → ICU 10-26 00:44 → SUATTDRO 10-26 00:44 → 3N 11-03 18:50 → ICU 11-07 15:13 → 3S 11-23 11:08
PROVIDERS: ADMIT Internal Medicine; ATTEND Internal Medicine

== ENCOUNTER 2018-02-27 14:51 | Inpatient (IN) ==
[2018-02-27] MEDS ORDERED: NORCO-7.5 PO PRN (15:45)
[2018-02-27] MEDS ORDERED: NS 1,000 ML IV SCH (15:45)
[2018-02-27] MEDS ORDERED: TYLENOL PO PRN (15:45)
[2018-02-27] MEDS ORDERED: SODIUM CHLORIDE 0.9% INJ PRN (15:45)
[2018-02-27] MEDS ORDERED: PHENERGAN IV PRN (15:45)
--- NOTE | 2018-02-27 16:22 | Diag Imaging Result Doc PS360 ---
EXAM: CT HEAD W/O CONTRAST INDICATION: AMS TECHNIQUE: This exam was performed using automated exposure control, adjustment of mA or kV according to patient size, and/or use of iterative reconstruction technique. COMPARISON: 10/28/2016 FINDINGS: There is asymmetric increased extra-axial space overlying the left cerebral and cerebellar hemispheres. The fluid is CSF density and it is completely stable as compared to the previous study and there is no midline shift or ventricular effacement. As such, this probably represents asymmetric brain atrophy or perhaps a small cystic hygroma. There is patchy low attenuation in the periventricular and subcortical white matter suggesting mild high-grade uropathy, stable. There is no definite acute infarct given the limited sensitivity of CT versus MRI. There is no evidence of intracranial mass or acute intracranial hemorrhage. The surrounding soft tissues and bony structures are essentially unremarkable. IMPRESSION: Stable chronic changes as described. No evidence of acute intracranial pathology. Electronically signed by Vamsi Mclain 02/27/2018 4:21 PM
[2018-02-27] MEDS: LOVENOX SUBQ SCH (16:35)
[2018-02-27] MEDS: LEVAQUIN 500 MG/D5W 500 MG/100 ML IVPB IV SCH (16:35)
[2018-02-27] MEDS ORDERED: TOBRAMYCIN 80 MG in NS 50 ML IV ONE (17:30)
[2018-02-27 18:43] LABS: BASO# 0.01 X1000 (0.0-0.2); BASO% 0.1 % (0.0-0.8); EOS# 0.09 X1000 (0.0-0.7); EOS% 1.3 % (0.0-10.0); HEMOGLOBIN 12.2 g/dL (14.0-18.0); LYMPH# 1.02 X1000 (1.2-3.4); MCH 29.9 PG (27-31); MCHC 32.1 g/dL (33-37); MCV 93.1 FL (81-99); MONO# 0.64 X1000 (0.11-0.59); MONO% 9.4 % (1.7-9.3); MPV 9.5 FL (7.4-10.4); NEUT# 5.03 X1000 (1.4-6.5); NEUT% 74.2 % (42.2-75.2); PLT 219 X1000 (130-400); RBC 4.08 XMIL (4.7-6.1); RDW 13.5 % (11.5-14.5); WBC 6.79 X1000 (4.8-10.8)
[2018-02-27 19:04] LABS: ALB/GLOB RATIO 0.9; ALBUMIN 2.9 g/dL (3.5-5.0); CALCIUM 7.7 mg/dL (8.8-10.2); CREATININE 1.8 mg/dL (0.7-1.2); POTASSIUM 3.5 mmol/L (3.5-5.1); TOTAL BILIRUBIN 0.39 mg/dL (0.20-1.00); TOTAL PROTEIN 6.2 g/dL (6.3-8.3)
[2018-02-27 19:13] LABS: FREE T4 1.51 ng/dL (0.93-1.70); TSH 2.81 uIUmL (0.27-4.20)
[2018-02-27] MEDS ORDERED: SINEMET 25/100 PO SCH (21:00)
[2018-02-27] MEDS: ZANTAC PO SCH (22:13)
[2018-02-27] MEDS: PROTONIX PO SCH (22:13)
[2018-02-27] MEDS: CELEXA PO SCH (22:13)
[2018-02-27] MEDS: MAG-OX PO SCH (22:13)
[2018-02-28] MEDS: SYNTHROID PO SCH (06:38)
--- NOTE | 2018-02-28 08:36 | PROGRESS NOTE ---
DATE: 02/28/2018 SUBJECTIVE: Mr. Mueller was admitted to [facility] with a metabolic encephalopathy. He had been seen in the ER on 02/25/2018 for evaluation of altered mental status. A urinalysis was positive and he was started on oral Macrodantin. Urine cultures from the ER grew out Klebsiella pneumoniae sensitive to multiple antibiotics. His family reported that his confusion and disorientation persisted. This morning, he is sitting up in a chair. He is awake and eating breakfast. He still has baseline confusion. He can tell me his name. He cannot tell me where he is or what year it is. CT scan of the brain demonstrated chronic white matter changes. No acute stroke was noted. Blood pressure is mildly elevated. Systolic blood pressures are ranging from 145 to 153 whereas his diastolic blood pressures are ranging from 70 to 80. He denies any chest pain, palpitations, or anginal equivalents. Renal function has deteriorated overnight. His creatinine has jumped from 1.4 to 1.8 since his ER visit on the . OBJECTIVE: Vital Signs: Temperature 98.4 degrees, pulse 62, respirations 16, blood pressure 58/83. Cardiovascular: Regular rate and rhythm. Lungs: Clear. Abdomen: Soft and nontender with active bowel sounds. Extremities: Without edema. Neurological: He is awake and easily arousable. He is oriented to name only. He has a minimal resting tremor. He does have some cogwheel rigidity. ASSESSMENT AND PLAN: 1. Metabolic encephalopathy secondary to underlying urinary tract infection. He does have a history of vascular dementia and we will continue Aricept 10 mg daily. According to his family, he did have hallucinations at night. I am going to add Seroquel 25 mg at bedtime. We will continue tobramycin and Levaquin pending repeat blood and urine cultures. 2. Acute on chronic renal insufficiency. His creatinine has jumped from 1.4 to 1.8. We will increase the normal saline to 100 mL/hour and recheck a BMP in the morning. 3. Parkinson disease. I am going to increase the Sinemet 25/100 to 2 tablets b.i.d. 4. Mobility issues. He is physically very weak. He is requiring assistance with activities of daily living. We will consult physical therapy for evaluation. We will ask renal social worker to arrange for short-term rehabilitation. The family is interested in [employer]. cc: Eugenio Bernal MD
[2018-02-28] MEDS: ZANTAC PO SCH ×2 (08:37→23:04)
[2018-02-28] MEDS: SINGULAIR PO SCH (08:37)
[2018-02-28] MEDS: FLOMAX PO SCH (08:37)
[2018-02-28] MEDS: ARICEPT PO SCH (08:38)
[2018-02-28] MEDS: PROTONIX PO SCH ×2 (08:38→23:04)
[2018-02-28] MEDS: SINEMET 25/100 PO SCH ×2 (08:38→23:03)
[2018-02-28] MEDS: MAG-OX PO SCH ×2 (08:38→23:04)
[2018-02-28] MEDS: CORDARONE PO SCH (08:38)
[2018-02-28] MEDS: NS 1,000 ML IV SCH (08:38)
[2018-02-28] MEDS: LANOXIN PO SCH (08:38)
[2018-02-28] MEDS: PROSCAR PO SCH (08:38)
[2018-02-28] MEDS ORDERED: CALMOSEPTINE OINTMENT TOP PRN (11:01)
[2018-02-28] MEDS: LOVENOX SUBQ SCH (16:07)
[2018-02-28] MEDS: LEVAQUIN 500 MG/D5W 500 MG/100 ML IVPB IV SCH (16:07)
[2018-02-28] MEDS: CELEXA PO SCH (23:04)
[2018-02-28] MEDS: SEROQUEL PO SCH (23:04)
[2018-03-01] MEDS: NS 1,000 ML IV SCH ×3 (02:00→16:02)
[2018-03-01] MEDS: SYNTHROID PO SCH (06:41)
[2018-03-01 07:52] LABS: CALCIUM 8.3 mg/dL (8.8-10.2); CREATININE 1.3 mg/dL (0.7-1.2); POTASSIUM 3.6 mmol/L (3.5-5.1)
[2018-03-01] MEDS: LANOXIN PO SCH (09:26)
[2018-03-01] MEDS: PROSCAR PO SCH (09:26)
[2018-03-01] MEDS: ZANTAC PO SCH ×2 (09:26→21:59)
[2018-03-01] MEDS: PROTONIX PO SCH ×2 (09:26→21:59)
[2018-03-01] MEDS: ARICEPT PO SCH (09:26)
[2018-03-01] MEDS: MAG-OX PO SCH ×2 (09:26→21:59)
[2018-03-01] MEDS: SINGULAIR PO SCH (09:26)
[2018-03-01] MEDS: CORDARONE PO SCH (09:27)
[2018-03-01] MEDS: FLOMAX PO SCH (09:27)
[2018-03-01] MEDS: SINEMET 25/100 PO SCH ×2 (09:27→21:59)
[2018-03-01] MEDS: LEVAQUIN 500 MG/D5W 500 MG/100 ML IVPB IV SCH (16:59)
[2018-03-01] MEDS: LOVENOX SUBQ SCH (16:59)
[2018-03-01] MEDS: CELEXA PO SCH (21:59)
[2018-03-01] MEDS: SEROQUEL PO SCH (22:30)
[2018-03-02] MEDS: NS 1,000 ML IV SCH ×2 (04:38→12:00)
[2018-03-02] MEDS: SYNTHROID PO SCH (06:32)
[2018-03-02] MEDS: ZANTAC PO SCH (08:51)
[2018-03-02] MEDS: SINGULAIR PO SCH (08:53)
[2018-03-02] MEDS: PROSCAR PO SCH (08:53)
[2018-03-02] MEDS: LANOXIN PO SCH (08:53)
[2018-03-02] MEDS: PROTONIX PO SCH (08:53)
[2018-03-02] MEDS: ARICEPT PO SCH (08:53)
[2018-03-02] MEDS: SINEMET 25/100 PO SCH (08:53)
[2018-03-02] MEDS: FLOMAX PO SCH (08:53)
[2018-03-02] MEDS: MAG-OX PO SCH (08:53)
[2018-03-02] MEDS: CORDARONE PO SCH (08:53)
[2018-03-02] MEDS ORDERED: SEPTRA DS PO SCH (09:00)
--- NOTE | 2018-03-02 09:19 | PROGRESS NOTE ---
DATE: 03/01/2018 SUBJECTIVE: Mr. Mueller was admitted to [facility] with a metabolic encephalopathy secondary to an underlying UTI. He was not tachycardic or tachypneic. Blood cultures were negative. We never felt that he was septic. With aggressive treatment of the underlying urinary tract infection, his mental status has improved greatly. He is much more awake and easily arousable. He is oriented to name and place. He sits up and he was sitting up in a chair and eating breakfast and answering questions appropriately. He remains in normal sinus rhythm. Heart rate has been in the range of 60 to 80. He denies any chest pain, palpitations, or anginal equivalents. OBJECTIVE: Vital Signs: He is afebrile. Vital signs are stable. CV: Regular rate and rhythm. Lungs: Clear. Abdomen: Soft, nontender, with active bowel sounds. ASSESSMENT AND PLAN: 1. Metabolic encephalopathy secondary to urinary tract infection. 2. Acute on chronic renal insufficiency. We will continue gentle rehydration. His creatinine has dropped from 1.8-1.3. We will continue IV Levaquin pending final blood and urine cultures. cc: Eugenio Bernal MD
--- NOTE | 2018-03-02 11:41 | DISCHARGE SUMMARY ---
ADMISSION DATE: 02/27/2018 DISCHARGE DATE: 03/02/2018 DISCHARGE DIAGNOSES: 1. Metabolic encephalopathy. 2. Urinary tract infection (urine cultures grew out Klebsiella pneumoniae and Staph aureus). 3. Acute on chronic renal insufficiency. 4. Volume depletion. 5. Vascular dementia with behavior issues. 6. Paroxysmal atrial fibrillation. 7. Essential hypertension. 8. Ischemic heart disease. 9. Primary hypothyroidism. 10. Gastroesophageal reflux disease. 11. Benign prostatic hypertrophy. DISCHARGE INSTRUCTIONS: 1. The patient will be transferred via ambulance to [facility] in order to undergo short- term rehab. 2. Healthy heart diet. 3. Activity as tolerated. MEDICATIONS: [place] 7.5 mg 1 q.8 h. p.r.n. pain. Cordarone 400 mg daily. Sinemet 25/100 mg 2 tablets b.i.d. Celexa 10 mg daily. Digoxin 125 mcg daily. Aricept 10 mg daily. Finasteride 5 mg daily. Levothyroxine 25 mcg daily. Magnesium oxide 400 mg b.i.d. Pantoprazole 40 mg b.i.d. Zantac 150 mg b.i.d. Seroquel 12 5 mg at night. Flomax 0.4 mg daily. Bactrim DS 1 p.o. b.i.d. for 3 weeks. PHYSICAL EXAMINATION: General: This is an elderly, frail, 78-year-old gentleman no apparent distress. Vital Signs: He is afebrile. Vital signs are stable. CV: Regular rate and rhythm. Lungs: Clear. Abdomen: Soft, nontender with active bowel sounds. HOSPITAL COURSE: Mr. Mueller was admitted to [facility] for progressive confusion and disorientation. He has an underlying history of vascular dementia with behavior issues. He had been having visual and auditory hallucinations. He had been seen in the ER on 02/25/2018 and was treated for a urinary tract infection. Urine cultures grew out Klebsiella. His creatinine had jumped from 1.4 to 1.8. The patient was aggressively rehydrated with normal saline. We began broad-spectrum antibiotics including Levaquin and tobramycin pending repeat blood cultures and a urine culture. Repeat blood cultures were negative. Urine cultures grew out Klebsiella and Staph aureus sensitive to multiple medications. With fluid resuscitation and treatment of the underlying urinary tract infection, his confusion and disorientation improved. He returned to his baseline neurologically. At baseline, he does have some confusion. We did add low-dose Seroquel at night. He slept well at night. He had no further hallucinations. He will complete a 3-week course of Bactrim DS 1 p.o. b.i.d. and we will recheck a urine culture following completion of antibiotics to ensure resolution of the infection. He has a history of paroxysmal atrial fibrillation. He remains in normal sinus rhythm. His heart rate has been well controlled on digoxin. He has a history of vascular dementia. We continued Aricept 10 mg daily. We added Seroquel 12.5 mg at night. He slept well at night. He had no further hallucinations on the low-dose Seroquel. He does have a history of Parkinson's disease. He had been having increasing tremor and difficulty making transfers and performing activities of daily living in an independent manner. We increased the Sinemet 25/100 mg 2 tablets b.i.d. Physical therapy was consulted to see the patient. We felt that he would benefit from short-term rehab in order to be able to return home safely and to be able to perform activities of daily living in a more independent manner. Having reached maximum hospital benefit, the patient was discharged in stable condition. cc: Eugenio Bernal MD
--- NOTE | 2018-03-02 13:02 | Diag Imaging Result Doc PS360 ---
EXAM: CHEST-PORTABLE - 03/02/2018 HISTORY: bed placement TECHNIQUE: Portable chest COMPARISON: 02/25/2018 FINDINGS: There is stable mild cardiomegaly. There is tortuosity of the thoracic aorta. Inspiration is mildly shallow. Allowing for inspiration, lungs appear essentially clear. There is no consolidation, pleural effusion, or pneumothorax identified. IMPRESSION: Stable mild cardiomegaly. Mildly shallow inspiration. No other evidence of acute disease. Electronically signed by Catalino Leigh 03/02/2018 1:00 PM
[2018-03-02 13:53] VITALS: BP 146/75
== END 2018-03-02 17:03 | DRG 689 ==
LOC: DIRADM 14:51 → 3N 15:25
PROVIDERS: ADMIT Internal Medicine; ATTEND Internal Medicine
CPT/HCPCS: 51701; 70450; 71010; 71045; 80048; 80053; 81001; 84439; 84443; 85025; 87040; 87077; 87088; 87186; 97110; 97162; 97530; 99284; A9270; J1650; J1956; J7030; P9612; S0138

== ENCOUNTER 2018-03-22 13:21 | Inpatient (IN) ==
[2018-03-22] MEDS ORDERED: NS IV ONE (14:52)
[2018-03-22] MEDS ORDERED: [UNRECOGNIZED DRUG - OTHER] IV ONE (14:52)
[2018-03-22] MEDS ORDERED: VANCOMYCIN 500 MG/NS 500 MG/100 ML IVPB IV ONE (14:55)
[2018-03-22] MEDS ORDERED: ZOSYN 2.25 GM in NS 50 ML IV SCH (15:00)
--- NOTE | 2018-03-22 15:00 | EKG Report ---
Test Performed on : 03/22/2018 2:14:05 PM Test Reason : dig toxicity Blood Pressure : / mmHG Vent. Rate : 077 BPM Atrial Rate : 039 BPM P-R Int : 000 ms QRS Dur : 122 ms QT Int : 450 ms P-R-T Axes : 000 -51 108 degrees QTc Int : 509 ms Wide QRS rhythm. Left axis deviation Nonspecific intraventricular conduction delay Nonspecific ST and T wave abnormality Abnormal ECG When compared with ECG of 26-OCT-2017 14:16, Wide QRS rhythm. has replaced Sinus rhythm. Unconfirmed Result
--- NOTE | 2018-03-22 15:03 | PROVIDER DOCUMENTATION ---
This chart was entered by Regi Santos Scribe, acting as scribe for Michael Klein MD. HPI-General Adult - General Chief Complaint: Abnormal Lab[s] Stated Complaint: ABNORMAL LABS Time Seen by Provider: 03/22/18 14:21 Source: patient, family (daughter), EMS (first response) Allergies/Adverse Reactions: Patient Allergies Allergy/AdvReac Type Severity Reaction Status Date / Time lisinopril Allergy Severe angioedema Verified 02/25/18 12:12 losartan Allergy Severe angioedema Verified 02/25/18 12:12 meloxicam Allergy Severe angioedema Verified 02/25/18 12:12 levofloxacin [From Levaquin] AdvReac Unknown Verified 03/22/18 14:00 Home Medications: Home Medication List Medication Instructions Recorded Confirmed Last Taken Type Tamsulosin HCl 0.4 mg PO DAILY 10/25/16 02/27/18 02/24/18 History Montelukast Sodium [Singulair] 10 mg PO DAILY #30 tablet 11/04/16 02/27/1802/24 Rx Digoxin [Lanoxin] 125 microgm PO DAILY #30 tablet 11/28/16 02/27/18 02/24/18 Rx Finasteride [Proscar] 5 mg PO DAILY #30 tablet 11/28/16 02/27/18 02/24/18 Rx Amiodarone HCl 400 mg PO DAILY 10/26/17 02/27/18 02/24/18 History Donepezil HCl [Donepezil HCl Odt] 10 mg PO DAILY 10/26/17 02/27/18 02/24/18 History Furosemide 40 mg PO DAILY 10/26/17 02/27/18 02/24/18 History Levothyroxine [Synthroid] 25 mcg PO DAILY 10/26/17 02/27/18 02/24/18 History Magnesium Oxide [Mag-Ox] 400 mg PO BID 10/26/17 02/27/18 02/24/18 History Nifedipine E.r. [Procardia ER] 30 mg PO DAILY 10/26/17 02/27/18 02/24/18 History Pantoprazole Sodium 40 mg PO BID 10/26/17 02/27/18 02/24/18 History Carbidopa/Levodopa [Sinemet 25/100] 2 ea PO BID #120 tab 03/02/18 Unknown Rx Citalopram Hydrobromide 10 mg PO QHS #30 tab 03/02/18 Unknown Rx [Citalopram HBr] Hydrocodone/APAP 7.5 mg/325 mg 1 each PO Q8HR #15 tablet 03/02/18 Unknown Rx [[place]-7.5] Quetiapine [Seroquel] 12.5 mg PO QHS #30 tab 03/02/18 Unknown Rx Ranitidine [Zantac] 150 mg PO BID tablet 03/02/18 Unknown Rx Sulfamethoxazole/Tmp D.s. [Septra 1 ea PO BID #42 tab 03/02/18 Unknown Rx Ds] - History of Present Illness -Gen Adult Nature of Presenting Problems: 78 yowm presents to the ed via ems with cc abnormal digoxin level of 4.8 from [facility] dr klein spoke with pcp dr bernal and dr bernal will admit and place orders. pt is ill appearing and daughter at bedside sts has noticed the change with breathing, confusion last 3 days Location of Pain/Injury: reports: generalized (pt sts "a little" but not say where) Quality of Pain: reports: aching Severity: reports: mild Onset/Duration: reports: 3 days ago Timing: reports: still present Context/Activities at Onset: reports: light activity Modifying Factors: improves with: nothing Associated Symptoms: reports: loss of appetite, shortness of breath, weakness. denies: chest pain, fever/chills Similar Symptoms Previously?: No Recently seen or treated by another doctor?: No Review of Systems - Adult - REVIEW OF SYSTEMS - ADULT Constitutional: denies: chills, fever Eyes: reports: no symptoms reported Ears, Nose, Mouth & Throat: reports: no symptoms reported Cardiovascular: denies: chest pain, syncope Respiratory: reports: shortness of breath. denies: cough Gastrointestinal: denies: diarrhea, nausea, vomiting Genitourinary: reports: no symptoms reported Musculoskeletal: reports: see HPI, muscle weakness Integumentary: reports: no symptoms reported Neurological: denies: dizziness/vertigo, headache/migraines Psychiatric: reports: no symptoms reported Endocrine: reports: no symptoms reported Hematologic/Lymphatic: reports: no symptoms reported Allergic/Immunologic: reports: no symptoms reported All Other Systems: Reviewed and Negative Past History - Adult - PAST MEDICAL HISTORY-ADULT Review of Records: reports: Old Records Reviewed, Nursing Assessment Review, Medications Reviewed, Social history reviewed & non-contributory. Major Childhood Illnesses: reports: denies history Cardiovascular: reports: cardiac disease, HTN Respiratory: reports: denies history Gastrointestinal: reports: cancer (colon) Genitourinary: reports: kidney disease Musculoskeletal: reports: denies history Hand Dominance: Right Handed Neurological: reports: Alzheimer's, dementia Psychiatric: reports: denies history Endocrine/Immune: reports: denies history Other Conditions: reports: denies history - PRIOR SURGERIES/PROCEDURES Surgical/Procedure History: reports: bowel surgery - IMMUNIZATION STATUS Childhood Immunizations: See Nurse Assessment Flu Vaccine: See Nurse Assessment - FAMILY HISTORY Family History: reviewed, not pertinent - SOCIAL HISTORY Smoking: quit greater than 1 year Substance Use: none/never Alcohol Use Frequency: never Living Situation: care facility Physical Exam-General - PHYSICAL EXAM-ADULT Initial Vital Signs Reviewed: Yes - CONSTITUTIONAL General Appearance: alert, moderate distress, thin. negative: appears well - EYES Eyes: PERRL/EOMI, pale conjunctivae - HEAD, EARS, NOSE, MOUTH & THROAT HENMT: negative: moist mucous membranes (dry) - NECK Neck: non-tender - RESPIRATORY Respiratory: respiratory distress, accessory muscle use, rhonchi (R>L), other ( 88% on 2lpm via nc) - CARDIOVASCULAR Cardiovascular: irregularly irregular - CHEST (BREASTS) Chest/Breast: deferred - GASTROINTESTINAL (ABDOMEN) Abdominal Exam: normal bowel sounds, soft, other (well healed scar midline abdomen) - LYMPHATIC Lymphatic: no adenopathy - MUSCULOSKELETAL Back Exam: normal inspection Extremity: normal inspection, no calf tenderness, pelvis stable - SKIN Integumentary: warm/dry, pallor - PSYCHIATRIC Psych/Mental Status: other (pt only sts "a little" when asked in pain otherwise pt not speaking) Progress - PLAN OF CARE/RESULTS Progress/Plan/Lab Results: Vital Signs - 8 hr 03/22/18 13:39 03/22/18 14:12 03/22/18 14:14 Temperature 98.6 F Pulse Rate 74 86 78 Respiratory Rate 24 11 L 19 Blood Pressure 103/51 140/71 O2 Sat by Pulse Oximetry 88 L 88 L 89 L 03/22/18 14:17 03/22/18 14:20 Temperature Pulse Rate 77 81 Respiratory Rate 24 30 H Blood Pressure 111/72 O2 Sat by Pulse Oximetry 89 L 87 L Orders Category Date Time Status Nursing- Obtain EKG once Care 03/22/18 14:25 Active Saline Loc NOW Care 03/22/18 14:25 Active EKG [EKG] Stat Ther 03/22/18 14:25 Ordered - REASSESSMENT Reassessment #1 Time Reassessed: 14:35 (dr lemuel burris with dr bernal ) Status: unchanged - EKG 1 Time of EKG reading by physician:: 14:19 EKG Read and Signed by:: Michael Klein EKG Interpretation (*Must complete 3 of following elements*): Abnormal Rate: 77 Rhythm: afib per dr klein [place]: left (deviation) QRS: other (nonspecific intraventricular conduction delay) TN Interval: normal Comments: nonspecific ST and T wave abnormality - CONSULTS/PCP/HOSPITALIST Notification #1 *Consult/PCP/Hospitalist*: dr park Time Discussed: 14:08 Reason/Comments: consult Consult Disposition: Will see in ED #2 Consult: dr kerry bernal pcp Time Discussed: 14:31 (Dr. Bernal did not want me to put any further orders in) Reason/Comments: will put on orders in Consult Disposition: Will see in ED Departure - Departure Date of Disposition Decision: 03/22/18 Time of Disposition Decision: 15:01 DIAGNOSIS: Acute kidney injury (nontraumatic) Digoxin toxicity Qualifiers: Encounter type: initial encounter Injury intent: accidental or unintentional Qualified Code(s): T46.0X1A - Poisoning by cardiac-stimulant glycosides and drugs of similar action, accidental (unintentional), initial encounter Pneumonia Qualifiers: Pneumonia type: due to unspecified organism Laterality: unspecified laterality Lung location: unspecified part of lung Qualified Code(s): J18.9 - Pneumonia, unspecified organism Disposition: ADMITTED INPATIENT 09 Certified Medical Emergency: Emergent Condition: Critical Referrals and Follow-Ups: Oswaldo Zhao MD [Primary Care Provider] - - Critical Care Note This patient required my direct & personal management of CC.: No Attestation - Physician/ PARESH Attestation Patient care was provided by Advanced Practice Provider:: No The physician spent face to face time with patient:: Yes Advanced Practice Provider documentation review:: Supervising physician onsite and consulted in the evaluation and care of this patient. The physician did have a face to face encounter with the patient. This chart was documented by the indicated scribe, (Regi Santos, Sean) and accurately reflects the services I performed and decisions made by me, Michael Klein MD, as attested by the provider's signature.
[2018-03-22 15:13] LABS: BASO# 0.01 X1000 (0.0-0.2); BASO% 0.1 % (0.0-0.8); HEMATOCRIT 47.6 % (42.0-52.0); HEMOGLOBIN 15.1 g/dL (14.0-18.0); IMM GRAN# 0.04 X1000 (0.0-0.04); IMM GRAN% 0.3 % (0.0-0.5); LYMPH# 0.73 X1000 (1.2-3.4); MCH 28.3 PG (27-31); MCHC 31.7 g/dL (33-37); MCV 89.1 FL (81-99); MONO# 0.81 X1000 (0.11-0.59); MONO% 6.6 % (1.7-9.3); MPV 11.2 FL (7.4-10.4); NEUT# 10.61 X1000 (1.4-6.5); PLT 253 X1000 (130-400); RBC 5.34 XMIL (4.7-6.1); RDW 15.2 % (11.5-14.5)
--- NOTE | 2018-03-22 15:13 | Diag Imaging Result Doc PS360 ---
EXAM: CHEST-PORTABLE 03/22/2018 HISTORY: dyspnea TECHNIQUE: AP portable semiupright at 1504 COMMENT: There is ill-defined opacity in the right lower lobe which was not present on 03/02/2018. The inspiration is actually better on today's study. IMPRESSION: Right lower lobe pneumonia. Electronically signed by Mo Marin 03/22/2018 3:10 PM
[2018-03-22 15:18] LABS: ALB/GLOB RATIO 0.9; ALBUMIN 3.3 g/dL (3.5-5.0); CALCIUM 8.8 mg/dL (8.8-10.2); CREATININE 3.1 mg/dL (0.7-1.2); POTASSIUM 4.7 mmol/L (3.5-5.1); TOTAL BILIRUBIN 0.69 mg/dL (0.20-1.00); TOTAL PROTEIN 6.9 g/dL (6.3-8.3)
[2018-03-22] MEDS ORDERED: SODIUM CHLORIDE 0.9% INJ PRN (15:57)
[2018-03-22] MEDS ORDERED: TYLENOL PO PRN (15:57)
[2018-03-22] MEDS ORDERED: PHENERGAN IV PRN (15:57)
[2018-03-22] MEDS: ATIVAN IV PRN (16:14)
--- NOTE | 2018-03-22 17:14 | HISTORY AND PHYSICAL ---
HISTORY OF PRESENT ILLNESS: Mr. Cosme Mueller is a 78-year-old gentleman, who is well known to me. He has a history of multiple medical problems, including paroxysmal atrial fibrillation, COPD, ischemic heart disease, essential hypertension, Parkinson disease, gastroesophageal reflux disease, and vascular dementia with behavior issues. He had recently been hospitalized in February 2018 with a metabolic encephalopathy. A urine culture grew out Staphylococcus aureus and Klebsiella pneumoniae, which were both sensitive to sulfa drugs. Over the past 3 days, he has had increasing confusion, disorientation, and mental status changes. His daughter reports that he has been having visual and auditory hallucinations. In the ER, he was unable to answer any questions and was not oriented to name, place, or time at this time. Family reported that over the past several days he had been having increasing shortness of breath, increased work of breathing, pleuritic chest pain, and a productive cough. His chest x-ray demonstrated a right lower lobe pneumonia. He also has a history of chronic renal insufficiency. He was noted to be in acute renal failure. His BUN and creatinine were 71 and 3.1. He does have a suprapubic catheter in place. PAST MEDICAL HISTORY: Paroxysmal atrial fibrillation, COPD, ischemic heart disease, essential hypertension, Parkinson disease, gastroesophageal reflux disease, vascular dementia with behavior issues, chronic renal insufficiency. PAST SURGICAL HISTORY: Lasix surgery. ALLERGIES: JIMENA inhibitors. FAMILY HISTORY: Father of a ruptured abdominal aortic aneurysm. One brother of complications of end-stage renal disease and colon cancer. Mother had known ischemic heart disease and hypertension. SOCIAL HISTORY: He is a former smoker. He does consume alcoholic beverages. He lives with his son. PHYSICAL EXAMINATION: GENERAL: This is an acutely ill-appearing 78-year-old gentleman in mild distress secondary to shortness of breath. VITAL SIGNS: O2 saturations were 88% on room air, temperature 97.8 degrees, pulse 104, respiratory rate 30, BP 91/71. HEENT: Fundi with arteriolar wall thickening. Pupils equal, round, reactive to light. Extraocular eye movements intact. NECK: No masses, JVD, or bruits. CARDIOVASCULAR: Tachycardic, regular S1, S2. LUNGS: Scattered end expiratory wheezing with crackles in the right base. ABDOMEN: Soft, nontender, with active bowel sounds. EXTREMITIES: Trace ankle edema. GENITOURINARY AND RECTAL: Exams deferred. NEUROLOGICAL: He is thrashing about in bed. He is confused and disoriented. He is not oriented to name, place, and time. He moves all extremities grossly. DIAGNOSTIC STUDIES: A CBC demonstrated white count of 12, hemoglobin 15, hematocrit 47, and platelet count 253,000, and a left shift. Electrolytes demonstrated the following: Sodium 136, potassium 4.7. BUN 71, creatinine 3.1, and glucose 179. His lactate level was 1.5. ASSESSMENT AND PLAN: 1. Metabolic encephalopathy in the setting of vascular dementia with acting out behavior. 2. Acute respiratory failure with hypoxia secondary to acute chronic obstructive pulmonary disease (COPD) exacerbation with community-acquired pneumonia. 3. Severe sepsis. 4. Acute on chronic renal insufficiency. 5. Ischemic heart disease. 6. Parkinson disease. I am going to admit the patient to [facility]. He is confused and disoriented. He has acute renal failure. He is tachycardic and tachypneic. Chest x-ray shows a right lower lobe pneumonia. I believe that he has severe sepsis. I am going to admit him to [facility] and will treat him with supplemental O2, DuoNeb nebulizer treatments, and IV vancomycin and Zosyn dosed for renal failure. We will continue broad-spectrum antibiotics pending blood cultures and urine culture. His blood pressure is low; I will give him normal saline at 75 mL/h. I am holding him n.p.o. as I do not believe that it is safe to attempt to feed him or give him oral medicines as he may aspirate. I have had a long discussion with his daughter. Mr. Mueller has expressed to his daughter and sons that he did not want to continue living in a debilitated state where he could not have a good quality of life. The family understands that he is critically ill and that his prognosis is guarded. They have asked that in the event of a cardiopulmonary arrest no heroic measures should be undertaken. A No Code Blue Level 1 has been established. Given his clinical presentation and comorbid conditions, I believe that admission to the hospital is reasonable and necessary. To attempt to treat a patient with sepsis up an outpatient would lead to severe potential consequences, such as . I anticipate that he will be in the hospital for at least 2 midnights, and I will therefore place him in inpatient status. I will begin Lovenox 30 mg subcutaneously daily for DVT prophylaxis. cc: Eugenio Bernal MD
[2018-03-22] MEDS: NS 1,000 ML IV SCH (17:39)
[2018-03-22] MEDS: ZOSYN 2.25 GM in NS 50 ML IV SCH ×2 (17:39→23:47)
[2018-03-22] MEDS: DUONEB (A & A) INH SCH ×2 (20:30→23:00)
[2018-03-22] MEDS: GEODON IM PRN (20:36)
[2018-03-22] MEDS: LOVENOX SUBQ SCH (21:06)
[2018-03-23] MEDS: ATIVAN IV PRN ×5 (00:07→23:11)
[2018-03-23] MEDS: GEODON IM PRN ×3 (02:46→16:16)
[2018-03-23] MEDS: DUONEB (A & A) INH SCH ×6 (03:35→23:40)
[2018-03-23] MEDS: NS 1,000 ML IV SCH ×4 (05:54→20:54)
[2018-03-23] MEDS: ZOSYN 2.25 GM in NS 50 ML IV SCH ×4 (05:55→23:33)
[2018-03-23 07:51] LABS: CALCIUM 7.9 mg/dL (8.8-10.2); CREATININE 2.7 mg/dL (0.7-1.2); POTASSIUM 4.6 mmol/L (3.5-5.1)
[2018-03-23] MEDS ORDERED: TYLENOL PR PRN (08:28)
[2018-03-23] MEDS: MORPHINE IV PRN ×7 (08:53→23:10)
[2018-03-23] MEDS: LOVENOX SUBQ SCH (17:38)
[2018-03-24] MEDS: STERILE WATER INJ. INJ PRN ×4 (00:23→20:50)
[2018-03-24] MEDS: GEODON IM PRN ×4 (00:24→20:50)
[2018-03-24] MEDS: MORPHINE IV PRN ×11 (01:12→23:14)
[2018-03-24] MEDS: DUONEB (A & A) INH SCH ×6 (03:40→23:45)
[2018-03-24] MEDS: ZOSYN 2.25 GM in NS 50 ML IV SCH ×4 (05:22→23:14)
[2018-03-24] MEDS: ATIVAN IV PRN ×3 (06:08→17:55)
[2018-03-24] MEDS: NS 1,000 ML IV SCH ×3 (08:28→18:27)
--- NOTE | 2018-03-24 09:03 | PROGRESS NOTE ---
DATE: 03/23/2018 SUBJECTIVE: Mr. Mueller was admitted to [facility] with a metabolic encephalopathy secondary to acute respiratory failure with hypoxia, secondary to acute chronic obstructive pulmonary disease exacerbation with community-acquired pneumonia and severe sepsis. Neurologically, there has been little change. He has had periods of agitation throughout the night. He really does not respond to verbal stimuli. He does not follow simple commands. Renal function has improved slightly. His creatinine has dropped from 3.1 to 2.7. OBJECTIVE: Vital Signs: Blood pressures are ranging from 110 to 140 systolically whereas diastolic blood pressures have been in the 70s. Temperature 102.3 degrees, pulse 95, respiratory 18, BP 106/64. CV: Tachycardic. Regular S1, S2. Lungs: Scattered end-expiratory wheezing with forced expiration and decreased breath sounds in the right base. Abdomen: Soft, nontender, with active bowel sounds. Extremities: Without edema. LABS: Various laboratory studies were obtained. A BMP demonstrated the following: Sodium 141, potassium 4.6 chloride 105,bicarbonate 21. BUN 75, creatinine 2.7 and glucose 133. ASSESSMENT: 1. Metabolic encephalopathy secondary to acute respiratory failure with hypoxia secondary to acute chronic obstructive pulmonary disease exacerbation with community-acquired pneumonia and underlying sepsis syndrome. 2. Acute on chronic renal failure. 3. Vascular dementia. 4. Parkinson disease. There has been little change clinically. He is unresponsive to verbal stimuli. We will continue fluid resuscitation and broad-spectrum antibiotics including Zosyn and vancomycin dosed for renal dysfunction, DuoNeb nebulizer treatments and supplemental O2. We will continue Ativan and Geodon as needed for agitation. If he remains agitated or seems uncomfortable and is not responding to the Geodon or Ativan, we will use morphine. I have had a long discussion with his daughter, Adry Delaney. He is critically ill and his prognosis is guarded at best. We will continue aggressive measures in the hopes that he will be able to have a meaningful recovery. I have had discussions with Ms. Delaney, and she reiterated that in the event of a cardiopulmonary arrest that no heroic measures should be undertaken. He is a no code blue level #1. cc: Eugenio Bernal MD
--- NOTE | 2018-03-24 13:10 | PROGRESS NOTE ---
DATE: 03/24/2018 SUBJECTIVE: The patient is not really responsive. I talked to his daughter. She stated that unless he gets his Ativan and Geodon and morphine in a timely fashion, he starts to shake and/or get agitated. Generally, he does not respond to external stimuli, but will sometime rouse up slightly to his daughter's voice. OBJECTIVE: Vital signs: 97.9, 62, 14, 127/71, 100 percent saturated on aerosol face mask. Lungs: On physical examination, the patient has a faint expiratory wheeze, most prominent in the right lower lobe. Cardiovascular: Regular without appreciable murmur or gallop. Neuropsychiatric: From a neurological standpoint, the patient is sleeping peacefully. He does not respond to my voice. When I opened his eyelids, I saw that his pupils were pinpoint bilaterally. Extremities: Show no edema. ASSESSMENT AND PLAN: 1. The patient has acute respiratory failure and metabolic encephalopathy secondarily with hypoxemia. He has chronic obstructive pulmonary disease and a community-acquired pneumonia with underlying sepsis. It is interesting that the second time that he came to the emergency room, he had fallen on his head and vomited. So, I do not think we can rule out completely aspiration, but the other parameters on exam really do not go along with that too well. 2. The patient has acute on chronic renal failure. It appears that his baseline is somewhere between 1.3 and 1.8. He is now 2.7, but that has improved from yesterday. We will continue intravenous fluids. 3. The patient has known vascular dementia. 4. The patient was previously on Parkinson medications. I do not think he is physically equipped at present to take oral medications, and so judging that performance based on his lack of inability to take medications is going to be difficult to determine how much of a contributor it is to his overall downturn. 5. The patient is do not resuscitate level 1. The patient's daughter expressed to me that she did not want him to suffer. cc: MD Eugenio Emery MD
[2018-03-24] MEDS: LOVENOX SUBQ SCH (17:58)
[2018-03-25] MEDS: ATIVAN IV PRN ×4 (00:06→19:00)
[2018-03-25] MEDS: MORPHINE IV PRN ×12 (01:11→22:54)
[2018-03-25] MEDS: STERILE WATER INJ. INJ PRN ×2 (03:14→21:19)
[2018-03-25] MEDS: GEODON IM PRN ×4 (03:14→21:19)
[2018-03-25] MEDS: DUONEB (A & A) INH SCH ×6 (03:45→23:14)
[2018-03-25] MEDS: NS 1,000 ML IV SCH ×2 (05:03→16:40)
[2018-03-25] MEDS: ZOSYN 2.25 GM in NS 50 ML IV SCH ×4 (05:04→22:54)
--- NOTE | 2018-03-25 11:40 | PROGRESS NOTE ---
DATE: 03/25/2018 SUBJECTIVE: The patient's daughter is present. She states there has been no progress, and she states the patient gets a bit agitated when someone comes in to take care of him or if there is a lot of talking going on in the room. He sort of jerks and shakes and appears a little bit agitated to her. OBJECTIVE: Vital Signs: 98.7, 71, 18, 132/71. General: On physical examination, the patient is an elderly gentleman lying in bed. He has his eyes closed. He does twitch and jerk a bit at times, especially when there is talking going on. He does not open his eyes. His pupils are pinpoint. Lungs: Show a little bit of noise on the right side. I cannot tell whether it is upper airway noise or in the actual lung tissue. He has 100% non-rebreather on. Cardiovascular: Regular. ASSESSMENT AND PLAN: 1. Acute respiratory failure and metabolic encephalopathy continues. The combination of chronic obstructive pulmonary disease with community-acquired pneumonia and underlying sepsis is at its root. There may be an element of aspiration pneumonitis given his vomiting prior to coming to the hospital, but antibiotics should be covering that. 2. The patient has acute on chronic renal failure. His last measured creatinine was 2.7. We will recheck this in the morning. 3. History of vascular dementia. 4. History of parkinsonism. 5. Do not resuscitate level 1. The patient's daughter again expressed that she did not want to "prolong his suffering in any way." cc: MD Eugenio Emery MD
[2018-03-25] MEDS: LOVENOX SUBQ SCH (19:38)
[2018-03-26] MEDS: ATIVAN IV PRN ×3 (00:53→22:25)
[2018-03-26] MEDS: NS 1,000 ML IV SCH ×3 (02:59→16:45)
[2018-03-26] MEDS: GEODON IM PRN ×3 (03:00→15:17)
[2018-03-26] MEDS: STERILE WATER INJ. INJ PRN (03:00)
[2018-03-26] MEDS: MORPHINE IV PRN ×8 (03:00→22:25)
[2018-03-26] MEDS: DUONEB (A & A) INH SCH ×6 (03:32→23:05)
[2018-03-26] MEDS: ZOSYN 2.25 GM in NS 50 ML IV SCH ×2 (04:58→11:36)
--- NOTE | 2018-03-26 11:22 | PROGRESS NOTE ---
DATE: 03/26/2018 SUBJECTIVE: Mr. Mueller was admitted to [facility] with a metabolic encephalopathy secondary to acute respiratory failure with hypoxia secondary to acute chronic obstructive pulmonary disease exacerbation with community-acquired pneumonia and severe sepsis. In spite of aggressive therapy, there has been no improvement clinically. He is obtunded and does not arouse to verbal or painful stimuli. He is requiring frequent injections of Geodon and Ativan for agitation. OBJECTIVE: Vital signs: Temperature 98.6 degrees, pulse 82, respirations 20, BP 120/78. ASSESSMENT AND PLAN: Metabolic encephalopathy secondary to acute respiratory failure with hypoxia with acute chronic obstructive pulmonary disease exacerbation and community-acquired pneumonia with severe sepsis. He has not made any progress clinically in spite of aggressive therapy. I have had a long discussion with his daughter, Adry Delaney. She has stated to me today that her father has told her that he did not want to live like this. She feels that they have given him every chance to make a meaningful recovery, and they wish to withdraw care and keep him as comfortable as possible. We will continue supplemental O2, nebulizer treatments, but stop IV fluids, IV antibiotics, and hold his regular medications. We will continue Ativan, morphine, and Geodon for pain and agitation. There will be no further x-rays or blood draws. We talked about inpatient hospice, and I told her about options including [facility] and [facility]. She has asked us to call [facility]. cc: Eugenio Bernal MD
[2018-03-26 11:23] LABS: CALCIUM 8.2 mg/dL (8.8-10.2); CREATININE 2.4 mg/dL (0.7-1.2); POTASSIUM 5.3 mmol/L (3.5-5.1)
[2018-03-26] MEDS: LOVENOX SUBQ SCH (17:23)
[2018-03-27] MEDS: NS 1,000 ML IV SCH ×3 (00:37→20:21)
[2018-03-27] MEDS: GEODON IM PRN ×2 (01:13→07:39)
[2018-03-27] MEDS: MORPHINE IV PRN ×8 (01:14→23:15)
[2018-03-27] MEDS: DUONEB (A & A) INH SCH ×6 (03:10→23:11)
[2018-03-27] MEDS: ATIVAN IV PRN ×2 (05:10→20:23)
--- NOTE | 2018-03-27 11:47 | PROGRESS NOTE ---
DATE: 03/27/2018 SUBJECTIVE: Mr. Cosme Mueller was admitted to [facility] with metabolic encephalopathy secondary to acute respiratory failure with acute COPD exacerbation, community- acquired pneumonia and severe sepsis. He did not make any significant improvement with aggressive therapy and the family has asked that we initiate comfort measures. He has been getting Geodon, Ativan and morphine every 2 hours. His daughter Adry Delaney reports that he has had more bouts of agitation, and has appeared uncomfortable at times. He is beginning to have Juanito-Fuller respirations. OBJECTIVE: Vital Signs: Temperature 99.5, pulse 73, respirations 16, BP 109/58. CV: Regular rate and rhythm. Lungs: Crackles in the right base. Abdomen: Soft, nontender, with active bowel sounds. ASSESSMENT AND PLAN: 1. Metabolic encephalopathy. 2. Acute respiratory failure secondary to acute chronic obstructive pulmonary disease exacerbation with community-acquired pneumonia and severe sepsis. 3. Acute on chronic renal failure. 4. Vascular dementia. Mr. Mueller remains obtunded. He is unresponsive to verbal or painful stimuli. PLAN: Because of the increasing agitation, I will increase the morphine to 4 mg IV q.2 hours p.r.n. and increase the Ativan to 2 mg IV q.6 hours p.r.n. He is beginning to have Juanito-Fuller respirations. I have told the family that usually occurs within 48 to 72 hours of the onset of Juanito-Fuller respirations. He is a No Code Blue level 1. The family wants to continue comfort measures only. cc: Eugenio Bernal MD
[2018-03-28] MEDS: MORPHINE IV PRN ×8 (02:11→18:10)
[2018-03-28] MEDS: DUONEB (A & A) INH SCH ×5 (03:05→20:47)
[2018-03-28] MEDS: ATIVAN IV PRN ×3 (08:18→19:19)
--- NOTE | 2018-03-28 12:36 | PROGRESS NOTE ---
DATE: 03/28/2018 SUBJECTIVE: Mr. Mueller still has periods of agitation, and he has been getting either Ativan, morphine, or Geodon every 2 hours with stabilization of his agitation. He is unresponsive to verbal or painful stimuli. His daughter reports that he is having more frequent Juanito-Fuller respirations. He is afebrile. Vital signs are stable. CV: Regular rate and rhythm. Lungs: Crackles in the bases bilaterally. Abdomen soft, nontender, with active bowel sounds. ASSESSMENT AND PLAN: 1. Metabolic encephalopathy. 2. Acute respiratory failure with hypoxia secondary to acute chronic obstructive pulmonary disease exacerbation with pneumonia. 3. Severe sepsis syndrome. Mr. Mueller has told his daughter in the past that he did not want to undergo heroic measures to maintain a poor quality of life. He is resting comfortably. Ms Delaney believes that the increased dosage of morphine has helped. We will continue palliative measures as per the family's request. cc: Eugenio Bernal MD
[2018-03-28 21:47] VITALS: BP 70/30
--- NOTE | 2018-03-30 05:01 | DISCHARGE SUMMARY ---
ADMISSION DATE: 03/22/2018 DISCHARGE DATE: 03/28/2018 DISCHARGE DIAGNOSES: 1. Metabolic encephalopathy. 2. Acute respiratory failure with hypoxia secondary to acute chronic obstructive pulmonary disease exacerbation with community-acquired pneumonia. 3. Severe sepsis with acute on chronic renal failure. 4. Vascular dementia with behavior issues. 5. COPD. 6. Essential hypertension. 7. Ischemic heart disease. SUMMARY: Mr. Cosme Mueller was transferred from [facility] to [facility] on 03/22/2018 for evaluation of altered mental status. When I saw him in the ER, he was unresponsive to verbal or painful stimuli. He had recently been treated for a urine culture that grew out Staph aureus and Klebsiella pneumoniae sensitive to sulfa drugs, and he was on Bactrim at the time of admission. We felt on admission that he was severely septic. He was tachycardic and tachypneic. His creatinine was 3.1. He had a leukocytosis of 12,200. He had a left shift. The patient was resuscitated with normal saline, and broad-spectrum antibiotics including Zosyn and vancomycin were initiated. Blood and urine cultures were negative. His chest x-ray showed a right lower lobe pneumonia. Over the course of the next several days, Mr. Mueller continued to decline clinically. He was unresponsive to verbal or painful stimuli. Adry Delaney his daughter told me that her father had told her that he did not want any heroic measures undertaken in the event of a terminal illness. A no code blue level 1 was established on admission. Because of his continued decline in the face of aggressive medical therapy, the family opted to initiate palliative measures. We stopped the fluids, antibiotics and continued supplemental O2, and used Ativan, Geodon, and morphine on a p.r.n. basis. The patient appeared to be comfortable on that combination of medications. He on 03/28/2018. cc: Eugenio Bernal MD
== END 2018-03-28 19:35 | disposition expired | DRG 871 ==
LOC: SUPCPDRO → ED 13:21 → 3N 15:41
PROVIDERS: ADMIT Internal Medicine; ATTEND Internal Medicine
CPT/HCPCS: 71010; 71045; 80048; 80053; 83605; 85025; 87040; 87088; 93005; 94640; 94761; 96374; 96375; 99285; A9270; J1162; J1650; J2060; J2270; J2543; J3370; J3486; J7030